=== PATIENT | female | born 1985 | race African-American/Black ===

== ENCOUNTER 2016-12-17 08:00 | Emergency (ER) | payer OTHER ==
[2016-12-17] MEDS ORDERED: METHYLPREDNISOLONE INJ 125 MG/2 ML SDV IV ONE (08:19)
[2016-12-17] MEDS ORDERED: CLINDAMYCIN 600 MG/D5W RTU 50 ML IV ONE (08:19)
--- NOTE | 2016-12-17 08:21 | ER Document Report ---
ED Oral Problem - General Chief Complaint: Sore Throat Stated Complaint: RIGHT SIDE JAW PAIN Time seen by provider: 08:18 Mode of Arrival: Ambulatory Information source: Patient Notes: 31-year-old female presents to ED for swollen face on the right side. She has a sore throat this morning. She also has a toothache bottom right wisdom tooth with swelling to the gum surrounding the tooth and the cheek beside the tooth. Some swelling inside, as well. Was seen last week for some dental problems and they told her she would not need to come back. TRAVEL OUTSIDE OF THE [place] IN LAST 30 DAYS: No - HPI Patient complains to provider of: Sore throat, Swelling of face, Swelling of jaw , Toothache Onset: This afternoon Onset: Gradual Quality of pain: Pressure, Sharp Severity: Severe Pain Level: 5 Associated symptoms: Facial pain, Jaw pain, Toothache. denies: Unable to swallow Relieved by: Nothing Similar symptoms previously: Yes Recently seen / treated by doctor/dentist: Yes - Related Data Allergies/Adverse Reactions: No Known Allergies Allergy (Verified 12/17/16 08:05) Past Medical History - General Information source: Patient - Social History Smoking Status: Never Smoker Cigarette use (# per day): No Chew tobacco use (# tins/day): No Smoking Education Provided: No Frequency of alcohol use: None Drug Abuse: None Lives with: Family Family History: Arthritis, CAD, CVA, DM, Hyperlipidemia, Hypertension, Thyroid Disfunction Patient has suicidal ideation: No Patient has homicidal ideation: No - Past Medical History Cardiac Medical History: Reports: None Pulmonary Medical History: Reports: Hx Asthma EENT Medical History: Reports: None Neurological Medical History: Reports: None Endocrine Medical History: Reports: None Renal/ Medical History: Reports: Other - Lupus Malignancy Medical History: Reports: None GI Medical History: Reports: Hx Gastroesophageal Reflux Disease Musculoskeltal Medical History: Reports Hx Arthritis Skin Medical History: Reports None Psychiatric Medical History: Reports: Hx Depression Traumatic Medical History: Reports: None Infectious Medical History: Reports: None Past Surgical History: Reports: Hx Adenoidectomy, Hx Tonsillectomy - tonsils and adnoids - Immunizations Immunizations up to date: No Hx Diphtheria, Pertussis, Tetanus Vaccination: No Review of Systems - Review of Systems Constitutional: No symptoms reported EENT: No symptoms reported, Throat pain, Mouth swelling, Dental problem, Other - Facial swelling Cardiovascular: No symptoms reported Respiratory: No symptoms reported Gastrointestinal: No symptoms reported Genitourinary: No symptoms reported Female Genitourinary: No symptoms reported Musculoskeletal: No symptoms reported Skin: No symptoms reported Hematologic/Lymphatic: No symptoms reported Neurological/Psychological: No symptoms reported -: Yes All other systems reviewed and negative Physical Exam - Vital signs Vitals: Temp Pulse Resp BP Pulse Ox 98.7 F 71 18 129/82 H 100 12/17/16 08:04 12/17/16 08:04 12/17/16 08:04 12/17/16 08:04 12/17/16 08:04 Interpretation: Normal - General General appearance: Appears well, Alert - HEENT Head: Normocephalic, Atraumatic Eyes: Normal Pupils: PERRL Teeth diagram: 1 - Gum and face swollen redness around the wisdom tooth swelling around the wisdom tooth - Respiratory Respiratory status: No respiratory distress Chest status: Nontender Breath sounds: Normal Chest palpation: Normal - Cardiovascular Rhythm: Regular Heart sounds: Normal auscultation Murmur: No - Abdominal Inspection: Normal Distension: No distension Bowel sounds: Normal Tenderness: Nontender Organomegaly: No organomegaly - Back Back: Normal, Nontender - Extremities General upper extremity: Normal inspection, Nontender, Normal color, Normal ROM , Normal temperature General lower extremity: Normal inspection, Nontender, Normal color, Normal ROM , Normal temperature, Normal weight bearing. No: Marko's sign - Neurological Neuro grossly intact: Yes Cognition: Normal Orientation: AAOx4 [place] Coma Scale Eye Opening: Spontaneous [place] Coma Scale Verbal: Oriented [place] Coma Scale Motor: Obeys Commands [place] Coma Scale Total: 15 Speech: Normal Motor strength normal: LUE, RUE, LLE, RLE Sensory: Normal - Psychological Associated symptoms: Normal affect, Normal mood - Skin Skin Temperature: Warm Skin Moisture: Dry Skin Color: Normal Course - Vital Signs Vital signs: Temp Pulse Resp BP Pulse Ox 97.8 F 70 18 118/64 98 12/17/16 10:46 12/17/16 10:46 12/17/16 10:46 12/17/16 10:46 12/17/16 10:46 Discharge - Discharge Clinical Impression: Dental infection, Facial swelling Condition: Stable Disposition: HOME, SELF-CARE Additional Instructions: TOOTHACHE: Your pain is due to dental decay. The tooth must be repaired in order for you to feel better. You will, therefore, be referred to a dentist. We do not have dentists on the staff at [facility]. Severe swelling or drainage around a tooth usually means a dental abscess. This also requires evaluation and treatment by the dentist, but antibiotics may be prescribed while awaiting dental treatment. You should be rechecked immediately if you develop major swelling of the face, increasing pain, a lump in the jaw or gums, headache, difficulty swallowing, or fever. ORAL NARCOTIC MEDICATION: You have been given a prescription for pain control. This medication is a narcotic. It's best taken with food, as nausea can result if taken on an empty stomach. Don't operate machinery or drive within six hours of taking this medication. Do not combine this medicine with alcohol, or with any medication which can cause sedation (such as cold tablets or sleeping pills) unless you get permission from the physician. Narcotics tend to cause constipation. If possible, drink plenty of fluids and eat a diet high in fiber and fruits. Please be aware that prescription narcotics also have the potential for abuse. People become addicted to these medications because of the general sense of wellbeing that they induce. This feeling along with a significant reduction in tension, anxiety, and aggression provides a stimulating seductive quality to these drugs. Once your pain is under control, we encourage you to discard your unused narcotics. CLINDAMYCIN: You have been given a prescription for the antibiotic clindamycin. It is often prescribed for infections in the mouth, such as dental infections or abscesses, and for skin infections due to MRSA. It's important that you take all the medication, unless instructed otherwise by your physician. Failure to complete the entire course can result in relapse of your condition. Common side effects of antibiotics include nausea, intestinal cramping, or diarrhea. Women may develop vaginal yeast infections, and babies can get yeast (thrush) in the mouth following the use of antibiotics. Contact your physician if you develop significant side effects from this medication. Allergy to this antibiotic can result in hives, wheezing, faintness, or itching. If symptoms of allergy occur, stop the medication and call the doctor. FOLLOW-UP CARE: You have been referred for follow-up care to the dentists listed below. Call the dentists office for an appointment as you were instructed or within the next two days. If you experience worsening or a significant change in your symptoms, notify the physician immediately or return to the Emergency Department at any time for re-evaluation. [facility] [address], [place] Sunday mornings, by appointment [facility] [address] [place] [address] [facility] [address] [facility] [address] [facility] [address] [email or web address] [address] [place] [address] Sunday- 8:00am to 5:00 pm Will see patients from other [facility]. Charges based on income and family size and accepts Medicare, Medicaid, and Insurances Will pull molars [facility] [id number] Hours of Operation 8:00 am - 4:30 pm weekdays The following dental offices accept Medicaid: [facility] Dr. Patel Dr. Ordaz Dr. Lara Dr. Shi Rosalio Cavazos [place], and [facility] Dr. Freed ([place]) Dr. Calhoun ([place]) [facility] Drs. Gracia and Yeison ([place]) Dr. Tinsley ([place]) [facility] Dr. Car ([place]) Drs. Horton and ([place]) Medicaid Care Line Prescriptions: Hydrocodone/Acetaminophen [[place] 5-325 mg Tablet] 1 tab PO Q6HP PRN #14 tablet PRN Reason: Clindamycin HCl 300 mg PO Q6 #28 capsule Forms: Elevated Blood Pressure
--- NOTE | 2016-12-17 09:20 | ER Document Report ---
Doctor's Note Notes: 12/17/16 09:19 Patient seen at bedside APC request. Patient with some mild facial swelling no trismus stridor or drooling no submandibular subungual or tongue elevation concerning for Ricardo angina. Reviewed the treatment which is appropriate appropriate follow-up antibiotics and discussed with the patient reasons for ED return sooner
[2016-12-17 10:51] VITALS: BP 118/64
== END 2016-12-17 10:51 | disposition home or self-care (01) ==
LOC: ER 08:00
DX: K04.7 Periapical abscess without sinus (principal); R22.0 Localized swelling, mass and lump, head; J02.9 Acute pharyngitis, unspecified; R68.84 Jaw pain
CPT/HCPCS: 99283; 96375; 96365; J2930

== ENCOUNTER 2017-01-05 08:45 | Emergency (ER) | payer SELFPAY ==
[2017-01-05] MEDS ORDERED: ALBUTEROL SULFATE 0.083% NEB 2.5 MG/3 ML AMPUL NEB ONE (09:20)
--- NOTE | 2017-01-05 09:29 | ER Document Report ---
HPI - HPI Patient complains to provider of: cough/cold, headache Onset: Last week Onset/Duration: Gradual Quality of pain: No pain Severity: None Pain Level: Denies Context: Patient states she has had cough and cold symptoms for 1 week. Has not taken any [id number]-[id number] medications for relief of symptoms, but has tried hot tea. Patient does have a history of asthma, but does not have an inhaler at home. Patient denies fever Associated Symptoms: Productive cough, Headache, Rhinnorhea. denies: Fever Exacerbated by: Coughing Relieved by: Denies Similar symptoms previously: Yes Recently seen / treated by doctor: No - ROS ROS below otherwise negative: Yes Systems Reviewed and Negative: Yes All other systems reviewed and negative - CONSTITUTIONAL Constitutional: DENIES: Fever - EENT EENT: REPORTS: Sore Throat, Nasal Drainage-Clear, Congestion - NEURO Neurology: REPORTS: Headache - CARDIOVASCULAR Cardiovascular: DENIES: Chest pain - RESPIRATORY Respiratory: REPORTS: Coughing. DENIES: Trouble Breathing - GASTROINTESTINAL Gastrointestinal: DENIES: Abdominal Pain - URINARY Urinary: DENIES: Dysuria - REPRODUCTIVE Reproductive: DENIES: : - MUSCULOSKELETAL Musculoskeletal: DENIES: Extremity pain - DERM Skin Color: Normal Skin Problems: None Past Medical History - General Information source: Patient - Social History Smoking Status: Never Smoker Frequency of alcohol use: None Drug Abuse: None Lives with: Family Family History: Arthritis, CAD, CVA, DM, Hyperlipidemia, Hypertension, Thyroid Disfunction Patient has suicidal ideation: No Patient has homicidal ideation: No Pulmonary Medical History: Reports: Hx Asthma Renal/ Medical History: Denies: Hx Peritoneal Dialysis GI Medical History: Reports: Hx Gastroesophageal Reflux Disease Musculoskeltal Medical History: Reports Hx Arthritis, Reports Other - Lupus Psychiatric Medical History: Reports: Hx Depression Past Surgical History: Reports: Hx Adenoidectomy, Hx Tonsillectomy - tonsils and adnoids - Immunizations Immunizations up to date: No Hx Diphtheria, Pertussis, Tetanus Vaccination: No Vertical Provider Document - CONSTITUTIONAL Agree With Documented VS: Yes Exam Limitations: No Limitations General Appearance: WD/WN, No Apparent Distress - INFECTION CONTROL TRAVEL OUTSIDE OF THE [place] IN LAST 30 DAYS: No - HEENT HEENT: Atraumatic, Normocephalic Notes: TMs dull, throat with mild erythema, no exudates, + PND - NECK Neck: Normal Inspection, Supple - RESPIRATORY Respiratory: Breath Sounds Normal O2 Sat by Pulse Oximetry: 98 Notes: Slightly decreased breath sounds, no wheezing, rhonchi or rales. Raspy cough noted. - CARDIOVASCULAR Cardiovascular: Regular Rate, Regular Rhythm - GI/ABDOMEN Gastrointestinal: Abdomen Soft - MUSCULOSKELETAL/EXTREMETIES Musculoskeletal/Extremeties: MAEW, FROM - NEURO Level of Consciousness: Awake, Alert, Appropriate - DERM Integumentary: Warm, Dry Course - Re-evaluation Re-evalutation: 01/05/17 09:39 Increased breath sounds after nebulizer treatment. - Vital Signs Vital signs: Temp Pulse Resp BP Pulse Ox 75 16 128/68 H 98 01/05/17 08:48 01/05/17 08:48 01/05/17 08:48 01/05/17 08:48 Discharge - Discharge Clinical Impression: Cough, History of asthma URI (upper respiratory infection) Qualifiers: URI type: unspecified URI Qualified Code(s): J06.9 - Acute upper respiratory infection, unspecified Condition: Good Disposition: HOME, SELF-CARE Instructions: Upper Respiratory Illness ([facility]) Additional Instructions: Vzur-maf-[id number] cough cold medication for symptom relief. Medications as prescribed Use inhaler 2 puffs every 4 hours as needed for cough Push fluids Follow-up with your doctor for recheck Sunday Return as needed Prescriptions: Prednisone [Deltasone 10 mg Tablet] 10 mg PO ASDIR #21 tablet
[2017-01-05] MEDS ORDERED: ALBUTEROL SULFATE HFA (90 MCG/PUFF) 8 GM MDI (1 MDI/ER DISP) IH ONE (09:30)
[2017-01-05 09:57] VITALS: BP 113/68
== END 2017-01-05 09:57 | disposition home or self-care (01) ==
LOC: ER 08:45
DX: J06.9 Acute upper respiratory infection, unspecified (principal); R05 Cough; J45.909 Unspecified asthma, uncomplicated; R51 Headache; J34.89 Other specified disorders of nose and nasal sinuses; J02.9 Acute pharyngitis, unspecified
CPT/HCPCS: 94640; 99283; J3490

== ENCOUNTER 2017-08-24 21:14 | Emergency (ER) | payer SELFPAY ==
[2017-08-24] MEDS ORDERED: TOBRAMYCIN SULFATE/DEXAMETH OPH SUSP 2.5 ML OU ONE (23:13)
[2017-08-24] MEDS ORDERED: TOBRAMYCIN SULFATE/DEXAMETH OPH SUSP 2.5 ML ONE (23:49)
--- NOTE | 2017-08-25 00:02 | ER Document Report ---
ED Eye Complaint - General Chief Complaint: Eye Problem Stated Complaint: EYE PAIN Time Seen by Provider: 08/24/17 23:08 Mode of Arrival: Ambulatory Information source: Patient Notes: Patient is a 31-year-old white female comes to emergency room complaining of upper eyelid puffiness. Patient stated his been off and on for about a month but worse last 2 days to the upper eyelids are swollen almost closed where she could not see. Patient says for the past couple of days it has gotten to where it is difficult to see because she cannot open her eyelids all the way. She denies plucking her eyebrows or any type of other sources of infection she does not use makeup very often. She does not know where this is coming from. She denies fevers or she denies any other contacts with sick people with similar symptoms. TRAVEL OUTSIDE OF THE [place] IN LAST 30 DAYS: No - HPI Patient complains to provider of: Swelling of eyelids Onset: Other - Off and on for a month greater the past 2 days Eye location: Bilateral Injury: No Occurred at: Other - Unknown Quality of pain: Achy, Fullness Severity: Moderate Pain Level: 3 Safety glasses worn: No Contact lenses worn: No Associated symptoms: None, Eyelid swelling, Orbital swelling - Related Data Allergies/Adverse Reactions: No Known Allergies Allergy (Verified 12/17/16 08:05) Past Medical History - General Information source: Patient - Social History Smoking Status: Never Smoker Cigarette use (# per day): No Chew tobacco use (# tins/day): No Smoking Education Provided: No Frequency of alcohol use: None Drug Abuse: None Lives with: Family Family History: Arthritis, CAD, CVA, DM, Hyperlipidemia, Hypertension, Thyroid Disfunction Patient has suicidal ideation: No Patient has homicidal ideation: No Pulmonary Medical History: Reports: Hx Asthma Renal/ Medical History: Denies: Hx Peritoneal Dialysis GI Medical History: Reports: Hx Gastroesophageal Reflux Disease Musculoskeltal Medical History: Reports Hx Arthritis Psychiatric Medical History: Reports: Hx Depression Past Surgical History: Reports: Hx Adenoidectomy, Hx Tonsillectomy - tonsils and adnoids - Immunizations Immunizations up to date: No Hx Diphtheria, Pertussis, Tetanus Vaccination: No Review of Systems - Review of Systems Constitutional: No symptoms reported EENT: See HPI Cardiovascular: No symptoms reported Respiratory: No symptoms reported Gastrointestinal: No symptoms reported Genitourinary: No symptoms reported Female Genitourinary: No symptoms reported Musculoskeletal: No symptoms reported Skin: No symptoms reported Hematologic/Lymphatic: No symptoms reported Neurological/Psychological: No symptoms reported -: Yes All other systems reviewed and negative Physical Exam - Vital signs Vitals: Temp Pulse Resp BP Pulse Ox 98.5 F 59 L 18 125/68 100 08/24/17 21:47 08/24/17 21:47 08/24/17 21:47 08/24/17 21:47 08/24/17 21:47 Interpretation: Normal - General General appearance: Alert, Other - Uncomfortable appearing - HEENT Head: Normocephalic, Atraumatic Eyes: Periorbital edema Conjunctiva: Normal Cornea: Normal Extraocular movements intact: Yes Eyelashes: Matted, Other - Eyebrows are puffy and upper eyelid is puffy. Inflammation around the lid line itself. This is bilaterally which is an unusual but occurs. The puffiness may also be related to a level allergic kind of a presentation as well. Tympanic membrane: Normal. No: Bulging, Hemotympanum, Injected, Loss of landmarks, Perforation, Purulent effusion, Retracted, Serous effusion, Other Sinus: Normal, Other - Congestion bilateral nares Nasal: Clear rhinorrhea Mouth/Lips: Normal. No: Angioedema, Caries, Dental fracture, Laceration, Lesions, Other Mucous membranes: Normal, Moist Pharynx: Normal. No: Blood in hypopharynx, Erythema, Exudate, Peritonsillar abscess, Post nasal drainage, Retropharyngeal abscess, Tonsillar hypertrophy, Uvular edema, Potential airway comprom., Other Neck: Normal. No: Anterior cervical chain, Posterior cervical chain, Brudzinski , Carotid bruit, Kernig's, Lymphadenopathy, Meningismus, Neck mass, Shotty nodes , Subcutaneous emphysema, Supple, Thyroid nodule, Thyromegally, Other - Respiratory Respiratory status: No respiratory distress Chest status: Nontender Breath sounds: Normal Chest palpation: Normal - Cardiovascular Rhythm: Bradycardia Heart sounds: Normal auscultation Murmur: No - Neurological Neuro grossly intact: Yes Cognition: Normal Orientation: AAOx4 [place] Coma Scale Eye Opening: Spontaneous [place] Coma Scale Verbal: Oriented [place] Coma Scale Motor: Obeys Commands [place] Coma Scale Total: 15 Speech: Normal - Skin Skin Moisture: Dry Skin Color: Normal, [place] Course - Vital Signs Vital signs: Temp Pulse Resp BP Pulse Ox 98.5 F 59 L 18 125/68 100 08/24/17 21:47 08/24/17 21:47 08/24/17 21:47 08/24/17 21:47 08/24/17 21:47 - Transfer of Care Notes: 08/25/17 00:05 At this time a believe patient is to possible problems going on one. Will be a blepharitis of the lid line. In the last area. The second would be the puffiness of the upper eyebrows and lids also appears somewhat as a allergic type reaction. We will place patient on eyedrops and an oral antibiotic along with an antihistamine. Given patient a referral over to the corporate affairs manager office if is not better in 2 or 3 days. She will return here she has any concerns or problems. Discharge - Discharge Clinical Impression: Allergic reaction Qualifiers: Encounter type: initial encounter Qualified Code(s): T78.40XA - Allergy, unspecified, initial encounter Blepharitis of both eyes Qualifiers: Blepharitis type: unspecified type Eyelid: both upper and lower Qualified Code( s): H01.001 - Unspecified blepharitis right upper eyelid; H01.002 - Unspecified blepharitis right lower eyelid; H01.002 - Unspecified blepharitis right lower eyelid; H01.004 - Unspecified blepharitis left upper eyelid; H01.004 - Unspecified blepharitis left upper eyelid; H01.005 - Unspecified blepharitis left lower eyelid; H01.005 - Unspecified blepharitis left lower eyelid Condition: Good Disposition: HOME, SELF-CARE Instructions: Antibiotic Therapy ([facility]), Acute Allergic Reaction ([facility]) Additional Instructions: As we discussed use the eyedrops 1 drop each eye every 4-6 hours while awake for 7 days only. Also wanted to take some Zyrtec 10 mg [id number] daily. I do believe that part of the puffiness of the eyes may be an allergic reaction to something that are coming in contact with. Given the name of the corporate affairs manager we refer to hear from the hospital if you are having any problems I suggested she contact him on Sunday. In the meantime should any problems arise return to ER before then. Prescriptions: Cetirizine HCl [Zyrtec 10 mg Tablet] 1 tab PO DAILY #30 tablet
[2017-08-25 00:40] VITALS: BP 111/56
== END 2017-08-25 00:38 | disposition home or self-care (01) ==
LOC: ER 21:14
DX: T78.40XA Allergy, unspecified, initial encounter (principal); H01.001 Unspecified blepharitis right upper eyelid; H01.002 Unspecified blepharitis right lower eyelid; H01.004 Unspecified blepharitis left upper eyelid; H01.005 Unspecified blepharitis left lower eyelid; H57.13 Ocular pain, bilateral; R22.0 Localized swelling, mass and lump, head
CPT/HCPCS: 99283; J3490

== ENCOUNTER 2017-09-09 10:08 | Emergency (ER) | payer SELFPAY ==
[2017-09-09 10:12] VITALS: BP 113/72
--- NOTE | 2017-09-09 11:27 | ER Document Report ---
ED Eye Complaint - General Chief Complaint: Eye Problem Stated Complaint: EYE PAIN Time Seen by Provider: 09/09/17 11:15 Mode of Arrival: Ambulatory Information source: Patient Notes: 32-year-old female presents to ED for complaint of pain and swelling to her right upper eyelid. There is no swelling to the lower lid no redness no inflammation no drainage. Patient states this has happened multiple times over the last month. She was supposed to go see a hse manager but she was scheduled during 1 of the . She is post call them again tomorrow to schedule a follow-up appointment. She states she went to nursery school teacher as she has lupus and he told her he was not sure what was going on. She is also been to her primary doctor and was scheduled appointment with Zechariah. TRAVEL OUTSIDE OF THE [place] IN LAST 30 DAYS: No - HPI Onset: Other - Off and on for the last 1-2 months has been seen by multiple providers Eye location: Right Injury: No Quality of pain: Burning Severity: Moderate Pain Level: 3 Associated symptoms: Burning - Related Data Allergies/Adverse Reactions: No Known Allergies Allergy (Verified 09/09/17 10:11) Past Medical History - General Information source: Patient - Social History Smoking Status: Never Smoker Cigarette use (# per day): No Chew tobacco use (# tins/day): No Smoking Education Provided: No Frequency of alcohol use: None Drug Abuse: None Occupation: none Lives with: Family Family History: Arthritis, CAD, CVA, DM, Hyperlipidemia, Hypertension, Thyroid Disfunction. denies: COPD, Malignancy Patient has suicidal ideation: No Patient has homicidal ideation: No - Past Medical History Cardiac Medical History: Reports: None Pulmonary Medical History: Reports: Hx Asthma EENT Medical History: Reports: None Neurological Medical History: Reports: None Endocrine Medical History: Reports: None Renal/ Medical History: Reports: None Malignancy Medical History: Reports: None GI Medical History: Reports: Hx Gastroesophageal Reflux Disease Musculoskeltal Medical History: Reports Hx Arthritis, Reports Other - lupus Skin Medical History: Reports None Psychiatric Medical History: Reports: Hx Depression Traumatic Medical History: Reports: None Past Surgical History: Reports: Hx Adenoidectomy, Hx Tonsillectomy - tonsils and adenoids - Immunizations Immunizations up to date: No Hx Diphtheria, Pertussis, Tetanus Vaccination: No Review of Systems - Review of Systems Constitutional: No symptoms reported EENT: Eye pain - swelling to upper eye lid Cardiovascular: No symptoms reported Respiratory: No symptoms reported Gastrointestinal: No symptoms reported Genitourinary: No symptoms reported Female Genitourinary: No symptoms reported Musculoskeletal: No symptoms reported Skin: No symptoms reported Hematologic/Lymphatic: No symptoms reported Neurological/Psychological: No symptoms reported -: Yes All other systems reviewed and negative Physical Exam - Vital signs Vitals: Temp Pulse Resp BP Pulse Ox 98.3 F 61 18 113/72 100 09/09/17 10:11 09/09/17 10:11 09/09/17 10:11 09/09/17 10:11 09/09/17 10:11 Interpretation: Normal - General General appearance: Appears well, Alert - HEENT Head: Normocephalic, Atraumatic Eyes: Other - Swelling to the right upper eyelid no swelling to the lower lid or the left eye no redness no drainage no history of any injury Conjunctiva: Normal Cornea: Normal Extraocular movements intact: Yes Eyelashes: Normal Pupils: PERRL Visual avendano normal: Yes Ears: Normal External canal: Normal Tympanic membrane: Normal Nasal: Purulent discharge, Swelling Mouth/Lips: Normal Mucous membranes: Normal Pharynx: Post nasal drainage Neck: Normal - Respiratory Respiratory status: No respiratory distress Chest status: Nontender Breath sounds: Normal Chest palpation: Normal - Cardiovascular Rhythm: Regular Heart sounds: Normal auscultation Murmur: No - Abdominal Inspection: Normal Distension: No distension Bowel sounds: Normal Tenderness: Nontender Organomegaly: No organomegaly - Back Back: Normal, Nontender - Extremities General upper extremity: Normal inspection, Nontender, Normal color, Normal ROM , Normal temperature General lower extremity: Normal inspection, Nontender, Normal color, Normal ROM , Normal temperature, Normal weight bearing. No: Marko's sign - Neurological Neuro grossly intact: Yes Cognition: Normal Orientation: AAOx4 Jorge A Coma Scale Eye Opening: Spontaneous Monona Coma Scale Verbal: Oriented Jorge A Coma Scale Motor: Obeys Commands Monona Coma Scale Total: 15 Speech: Normal Motor strength normal: LUE, RUE, LLE, RLE Sensory: Normal - Psychological Associated symptoms: Normal affect, Normal mood - Skin Skin Temperature: Warm Skin Moisture: Dry Skin Color: Normal Course - Re-evaluation Re-evalutation: 09/09/17 12:[address] Dailey. Patient to continue taking her antihistamines. Patient to use Benadryl if the antihistamine is not helping. Patient to use cold packs to the eye. Patient to follow-up with ophthalmology. - Vital Signs Vital signs: Temp Pulse Resp BP Pulse Ox 98.3 F 61 18 113/72 100 09/09/17 10:11 09/09/17 10:11 09/09/17 10:11 09/09/17 10:11 09/09/17 10:11 Discharge - Discharge Clinical Impression: Swelling of right upper eyelid URI (upper respiratory infection) Qualifiers: URI type: unspecified URI Qualified Code(s): J06.9 - Acute upper respiratory infection, unspecified Condition: Stable Disposition: HOME, SELF-CARE Additional Instructions: You have presented today with swelling to the right upper eyelid. There is no signs of any infection there is no redness or drainage. You do have a upper respiratory infection which is a viral infection. UPPER RESPIRATORY ILLNESS: You have a viral infection of the respiratory passages -- a "cold." This common infection causes nasal congestion, drainage, and often sore throat and cough. It is highly contagious. The disease usually lasts about 10 to 14 days. There is no "cure" for the viral infection -- it must run its course. If there is a complication, such as bacterial infection in the nose, sinuses, middle ear, or bronchial tubes, antibiotics may be required. The antibiotics won't affect the virus. Drink plenty of fluids. A humidifier may help. An expectorant medication or decongestant may make you more comfortable. Use acetaminophen or ibuprofen for fever or aches. See the doctor if fever persists over two days, if there is any significant worsening of your symptoms, or if you simply fail to improve as expected. Continue taking your antihistamines as prescribed. Get some [id number] oral-based eyedrops for relief of discomfort and dry feeling. Be sure not to touch the eye with the eyedrop container when dispensing your eyedrops. Please call the hse manager in the morning and if they are closed while call him Sunday and get in to see the hse manager. DECONGESTANT MEDICATION: A decongestant medicine has been suggested. Often this medicine is combined in the same tablet with an antihistamine or expectorant. This type of medicine is helpful in treating a bad cold or sinus condition, as well as in treatment of the nasal congestion of hay fever. It is not of much benefit for lung infections. Decongestant medicines are related to stimulants. They can cause an increase in blood pressure and heart rate. Persons with heart disease and high blood pressure should not take decongestants without discussing this with the physician. If you develop palpitations, chest pain, headache, or tremors, stop the medicine and consult your physician. COUGH-SUPPRESSANT & EXPECTORANT MEDICATION: You are to use a cough medication as needed for relief of symptoms. This medicine is a combination of an expectorant (to make the mucous thinner and more easily "coughed up") and a cough suppressant (to reduce the frequency of coughing). The cough-suppressant medicine is related to narcotics. You may experience mild nausea and sleepiness. Some patients who are very sensitive to narcotics may have stomach pain from this medicine. Taking the medicine with food reduces these side effects. Do not drive or work with machinery until you know how this medicine affects you. The expectorant should have no side effects. Iodine-containing expectorants (such as organidin) should not be taken by persons with active thyroid disease unless approved by your doctor. Call the doctor if you develop shortness of breath, hives, rash, itching, lightheadedness, or severe nausea and vomiting. USE OF ACETAMINOPHEN (Tylenol): Acetaminophen may be taken for pain relief or fever control. It's much safer than aspirin, offering a wider range of "safe" dosages. It is safe during . Some brand names are Tylenol, Panadol, Datril, Anacin 3, Tempra, and Liquiprin. Acetaminophen can be repeated every four hours. The following are maximum recommended dosages: >89 pounds or adults 650 mg to 900 mg Acetaminophen can be repeated every four hours. Maximum dose not to exceed 4000 mg a day. Ibuprofen Ibuprofen is an excellent, safe drug for pain control. In addition, it has potent antiinflammatory effects which are beneficial, especially in the treatment of injuries, arthritis, or tendonitis. It's best to take ibuprofen with food. Persons with ulcer disease or allergy to aspirin should notify their physician of this before taking ibuprofen. Take the medication exactly as prescribed. Don't take additional doses unless instructed to do so by your doctor. If you develop wheezing, shortness of breath, hives, faintness, stomach pain, vomiting, or dark black stools, return for re-evaluation at once. FOLLOW-UP CARE: If you have been referred to a physician for follow-up care, call the physician s office for an appointment as you were instructed or within the next two days. If you experience worsening or a significant change in your symptoms, notify the physician immediately or return to the Emergency Department at any time for re-evaluation. Referrals: MJ MARTÍNEZ DO [ACTIVE STAFF] - Follow up as needed BAILEE ALVAREZ MD [ACTIVE STAFF] - Follow up as needed
[2017-09-09] MEDS ORDERED: IBUPROFEN 800 MG TABLET PO ONE (11:40)
== END 2017-09-09 11:53 | disposition home or self-care (01) ==
LOC: ER 10:08
DX: J06.9 Acute upper respiratory infection, unspecified (principal); R22.9 Localized swelling, mass and lump, unspecified; H57.11 Ocular pain, right eye
CPT/HCPCS: 99283

== ENCOUNTER 2018-01-03 01:00 | Emergency (ER) | payer MEDICAID ==
--- NOTE | 2018-01-03 02:27 | ER Document Report ---
ED GI/ - General Chief Complaint: Vag Bleeding, +preg <12wks Stated Complaint: VAGINAL BLEEDING Time Seen by Provider: 01/03/18 01:26 Mode of Arrival: Ambulatory Information source: Patient Notes: Patient is a 32-year-old female who presents with mild vaginal bleeding. Patient reports that she has 5 weeks and that this was confirmed by the [facility]. Patient reports that the first time she noticed any blood was on Sunday but states that it was only when she wiped. Patient reports that the bleeding has not gotten worse and is still very mild however patient felt that the bleeding should have gone away by now. Patient denies any pain or cramping, denies any clots denies any nausea vomiting fever or any other concerns. TRAVEL OUTSIDE OF THE [place] IN LAST 30 DAYS: No - Related Data Allergies/Adverse Reactions: No Known Allergies Allergy (Verified 09/09/17 10:11) Past Medical History - General Information source: Patient - Social History Smoking Status: Never Smoker Cigarette use (# per day): No Chew tobacco use (# tins/day): No Smoking Education Provided: No Frequency of alcohol use: None Drug Abuse: None Family History: Arthritis, CAD, CVA, DM, Hyperlipidemia, Hypertension, Thyroid Disfunction. denies: COPD, Malignancy Patient has suicidal ideation: No Patient has homicidal ideation: No Pulmonary Medical History: Reports: Hx Asthma Renal/ Medical History: Denies: Hx Peritoneal Dialysis GI Medical History: Reports: Hx Gastroesophageal Reflux Disease Musculoskeltal Medical History: Reports Hx Arthritis Psychiatric Medical History: Reports: Hx Depression Past Surgical History: Reports: Hx Adenoidectomy, Hx Tonsillectomy - tonsils and adenoids - Immunizations Immunizations up to date: No Hx Diphtheria, Pertussis, Tetanus Vaccination: No Review of Systems - Review of Systems Constitutional: No symptoms reported EENT: No symptoms reported Cardiovascular: No symptoms reported Respiratory: No symptoms reported Gastrointestinal: No symptoms reported Genitourinary: No symptoms reported Female Genitourinary: Vaginal bleeding Musculoskeletal: No symptoms reported Skin: No symptoms reported Hematologic/Lymphatic: No symptoms reported Neurological/Psychological: No symptoms reported Physical Exam - Vital signs Vitals: Temp Pulse Resp BP Pulse Ox 98.4 F 67 18 135/79 H 100 01/03/18 01:05 01/03/18 01:05 01/03/18 01:05 01/03/18 01:05 01/03/18 01:05 - Notes Notes: PHYSICAL EXAMINATION: GENERAL: Well-appearing, well-nourished and in no acute distress. HEAD: Atraumatic, normocephalic. EYES: Pupils equal round and reactive to light, extraocular movements intact, conjunctiva are normal. ENT: Nares patent, oropharynx clear without exudates. Moist mucous membranes. NECK: Normal range of motion, supple without lymphadenopathy LUNGS: Breath sounds clear to auscultation bilaterally and equal. No wheezes rales or rhonchi. HEART: Regular rate and rhythm without murmurs ABDOMEN: Soft, nontender, nondistended abdomen. No guarding, no rebound. No masses appreciated. Female : deferred Musculoskeletal: Normal range of motion, no pitting or edema. No cyanosis. NEUROLOGICAL: Cranial nerves grossly intact. Normal speech, normal gait. Normal sensory, motor exams PSYCH: Normal mood, normal affect. SKIN: Warm, Dry, normal turgor, no rashes or lesions noted. Course - Re-evaluation Re-evalutation: Patient is a who presents approximately 5 weeks with mild vaginal bleeding. Patient denies any pain, passage of any clots. Patient reports that not soaking through pads and only has to change them once every 6- 8 hours. Patient was seen here on 10/09/2012 and had a RhoGam workup which indicated that the patient is a positive and no RhoGam was indicated. Will draw CBC, quantitative hCG and do a transvaginal OB ultrasound with Doppler. Patients exam is completely benign. CBC is unremarkable. HCG quantitative is 23.36. Patient will need to have repeat quantitative level drawn in approximately 48 hours. Patient remains completely symptomatic with no vaginal bleeding at this time no pain, no fever or other concerning symptoms. Patient will be discharged home with outpatient lab slip. - Vital Signs Vital signs: Temp Pulse Resp BP Pulse Ox 98.4 F 67 18 135/79 H 100 01/03/18 01:05 01/03/18 01:05 01/03/18 01:05 01/03/18 01:05 01/03/18 01:05 - Laboratory Result Diagrams: 01/03/18 02:00 Laboratory results interpreted by me: 01/03/18 01/03/18 02:00 02:00 WBC 2.2 L Hgb 9.4 L Hct 29.4 L MCV 73 L MCH 23.3 L RDW 16.4 H Monocytes % 14.5 H Absolute Neutrophils 1.1 L Beta HCG, Quant 23.36 H Discharge - Discharge Clinical Impression: Vaginal bleeding during Condition: Stable Disposition: HOME, SELF-CARE Additional Instructions: Threatened Miscarriage You have been evaluated for a possible miscarriage. At this time, there is no indication that a miscarriage will occur. Most women with your symptoms will go on to have a perfectly normal baby. However, careful observation will be necessary. A miscarriage occurs when the fetus is abnormal. There is no medicine or treatment for it. You should rest in bed until the symptoms have resolved. Do not douche or have sex for at least a week, or until OK'd by the doctor. Call the doctor or return for re-examination if there is an increase in bleeding or cramping, or passage of tissue. Your blood work and ultrasound today were normal. Please follow-up with the health department or an BLOCK S[facility]TER of your choosing for close follow-up. Referrals: [facility] [Outside] - Follow up as needed
[2018-01-03 02:40] LABS: ABSOLUTE LYMPHOCYTES (AUTO) 0.8 10^3/uL (0.5-4.7); ABSOLUTE MONOCYTES (AUTO) 0.3 10^3/uL (0.1-1.4); ABSOLUTE NEUT (AUTO) 1.1 10^3/uL (1.7-8.2); BASOPHILS % (AUTO) 0.6 % (0-2); EOSINOPHILS % (AUTO) 0.9 % (0-6); HEMATOCRIT 29.4 % (36.0-47.0); HEMOGLOBIN 9.4 g/dL (12.0-15.5); LYMPHOCYTES % (AUTO) 35.5 % (13-45); MEAN CORPUSCULAR HEMOGLOBIN 23.3 pg (27.0-33.4); MEAN CORPUSCULAR VOLUME 73 fl (80-97); MONOCYTES % (AUTO) 14.5 % (3-13); PLATELET COUNT 218 10^3/uL (150-450); RED BLOOD COUNT 4.04 10^6/uL (3.72-5.28); RED CELL DISTRIBUTION WIDTH 16.4 % (11.5-14.0); SEGMENTED NEUTROPHILS % (AUTO) 48.5 % (42-78); TOTAL CELLS COUNTED % (AUTO) 100 %; WHITE BLOOD COUNT 2.2 10^3/uL (4.0-10.5)
[2018-01-03 03:49] VITALS: BP 135/79
--- NOTE | 2018-01-03 06:01 | RADIOLOGY REPORT (SQ) ---
EXAM DESCRIPTION: US Transvaginal CLINICAL HISTORY: 32 years, Female, vaginal bleeding with COMPARISON: None. TECHNIQUE: Transvaginal LIMITATIONS: None. FINDINGS: No intrauterine gestation identified. Endometrial stripe thickness is 1.9 cm. Small fluid in the endometrial cavity and cervix. 12 x 8 x 6 cm uterus. 3.6 cm cervical length. Ovarian fossae are unremarkable; ovaries are not directly visualized. No significant free pelvic fluid. IMPRESSION: No intrauterine identified. Differential diagnosis includes occult early viable gestation, gestational loss, and occult ectopic gestation. Recommend 48-72 hour laboratory/sonographic follow-up.
== END 2018-01-03 05:05 | disposition home or self-care (01) ==
LOC: ER 01:00
DX: O20.9 Hemorrhage in early pregnancy, unspecified (principal); Z3A.01 Less than 8 weeks gestation of pregnancy
CPT/HCPCS: 36415; 76817; 84702; 85025; 99284

== ENCOUNTER 2018-02-20 19:07 | Emergency (ER) | payer MEDICAID ==
[2018-02-20 19:12] VITALS: BP 149/90
[2018-02-20] MEDS ORDERED: PREDNISONE 20 MG TABLET PO ONE (19:18)
--- NOTE | 2018-02-20 19:23 | ER Document Report ---
ED General - General Chief Complaint: Hand Swelling Stated Complaint: HANDS SWELLING Time Seen by Provider: 02/20/18 19:14 Notes: 32-year-old female PMH lupus here with complaints of right hand swelling ongoing for the past 1 day. She went to [facility] to be seen and was prescribed 7.5 mg daily prednisone for 7 days. This has not helped and her swelling persists. She states that this is 1 of her typical lupus flares. She denies any other symptoms. TRAVEL OUTSIDE OF THE [place] IN LAST 30 DAYS: No - Related Data Allergies/Adverse Reactions: No Known Allergies Allergy (Verified 02/20/18 19:09) Past Medical History - Social History Smoking Status: Never Smoker Chew tobacco use (# tins/day): No Frequency of alcohol use: None Drug Abuse: None Family History: Arthritis, CAD, CVA, DM, Hyperlipidemia, Hypertension, Thyroid Disfunction. denies: COPD, Malignancy Patient has suicidal ideation: No Patient has homicidal ideation: No Pulmonary Medical History: Reports: Hx Asthma Renal/ Medical History: Denies: Hx Peritoneal Dialysis GI Medical History: Reports: Hx Gastroesophageal Reflux Disease Musculoskeltal Medical History: Reports Hx Arthritis Psychiatric Medical History: Reports: Hx Depression Past Surgical History: Reports: Hx Adenoidectomy, Hx Tonsillectomy - tonsils and adenoids - Immunizations Immunizations up to date: No Hx Diphtheria, Pertussis, Tetanus Vaccination: No Review of Systems - Review of Systems Notes: See history of present illness for pertinent positive review of systems; otherwise all review of systems have been reviewed and are negative Physical Exam - Vital signs Vitals: Temp Pulse Resp BP Pulse Ox 98.7 F 58 L 16 149/90 H 100 02/20/18 19:11 02/20/18 19:11 02/20/18 19:11 02/20/18 19:11 02/20/18 19:11 - Notes Notes: PHYSICAL EXAMINATION: GENERAL: Well-appearing and in no acute distress. HEAD: Atraumatic, normocephalic. EYES: Pupils equal round and reactive to light, extraocular movements intact, sclera anicteric, conjunctiva are normal. ENT: nares patent, oropharynx clear without exudates. Moist mucous membranes. NECK: Normal range of motion, supple without lymphadenopathy LUNGS: CTAB and equal. No wheezes rales or rhonchi. HEART: Regular rate and rhythm without murmurs EXTREMITIES: Normal range of motion, there is minimal swelling of the right hand diffusely NEUROLOGICAL: Cranial nerves grossly intact. Normal sensory/motor exams. PSYCH: Normal mood, normal affect. SKIN: Warm, Dry, normal turgor, no rashes or lesions noted Course - Re-evaluation Re-evalutation: 02/20/18 19:22 MEDICAL DECISION MAKING: I reviewed the discharge paperwork given to the patient by [facility] She was prescribed 7.5 mg daily for 7 days of prednisone however this dosing is inadequate for the patient I will prescribe her prednisone 4 days worth and give her her first dose here for total of 5 days Instructed follow-up her table lever operator next day or few Patient understands and agrees to the plan of care - Vital Signs Vital signs: Temp Pulse Resp BP Pulse Ox 98.7 F 58 L 16 149/90 H 100 02/20/18 19:11 02/20/18 19:11 02/20/18 19:11 02/20/18 19:11 02/20/18 19:11 Discharge - Discharge Clinical Impression: Swelling of right hand Condition: Good Disposition: HOME, SELF-CARE Additional Instructions: You were seen in the emergency department at [facility]. Finish the prescribed steroids. Please followup with your table lever operator in the next few days for further management/evaluation. Please return to the emergency department for worsening of symptoms or any symptom that you deem to be concerning or life-threatening. Thank you for allowing us to be part of your care. Prescriptions: Prednisone [Deltasone 20 mg Tablet] 3 tab PO DAILY 4 Days tablet
== END 2018-02-20 19:23 | disposition home or self-care (01) ==
LOC: ER 19:07
DX: M79.89 Other specified soft tissue disorders (principal); Z79.899 Other long term (current) drug therapy; J45.909 Unspecified asthma, uncomplicated
CPT/HCPCS: 99283; J7512

== ENCOUNTER 2018-02-27 21:08 | Emergency (ER) | payer SELFPAY ==
[2018-02-27] MEDS ORDERED: DIPHENHYDRAMINE HCL 50 MG/ML VIAL IV ONE (21:27)
[2018-02-27] MEDS ORDERED: KETOROLAC TROMETHAMINE INJ/PF 30 MG/1 ML SDV IV ONE (21:27)
[2018-02-27] MEDS ORDERED: PROCHLORPERAZINE EDISYLATE INJ 10 MG/2 ML VIAL IV ONE (21:27)
--- NOTE | 2018-02-27 21:30 | ER Document Report ---
HPI - HPI Pain Level: 5 Notes: Patient is a 32-year-old female with a history of lupus who presents to the ED complaining of bilateral neck pain, headache, intermittent stomach ache 2 days. Patient states that her headache wraps around her head and starts in her neck. Patient states that when her headache starts she will get a "knot" in her stomach and she will feel nauseous but has not been vomiting. Patient states that she currently has not had any abdominal pain this evening. Patient states that she also notes increased urinations over the last couple days without any burning or hematuria. She has not noticed any vaginal discharge, bleeding, or odor. Patient states that she is having normal bowel movements. Patient has not noticed anything that worsens her headaches, but has noticed increased symptoms in the evenings. Denies any drug allergies. She has not had any light or noise sensitivities or changes in her vision. Denies any other recent illness. Denies any fever, head injury, changes in vision/speech/ mentation/hearing, URI, sore throat, chest pain, palpitations, syncope, cough, shortness of breath, wheeze, dyspnea, abdominal pain, nausea/vomiting/diarrhea, urinary retention, dysuria, hematuria, back pain, loss of control of bowel or bladder, numbness/tingling, saddle anesthesia, muscle paralysis/weakness, or rash. - ROS Systems Reviewed and Negative: Yes All other systems reviewed and negative - REPRODUCTIVE LMP: 02-02-18 Reproductive: DENIES: : Past Medical History - Social History Smoking Status: Unknown if Ever Smoked Family History: Arthritis, CAD, CVA, DM, Hyperlipidemia, Hypertension, Thyroid Disfunction. denies: COPD, Malignancy Pulmonary Medical History: Reports: Hx Asthma Renal/ Medical History: Denies: Hx Peritoneal Dialysis GI Medical History: Reports: Hx Gastroesophageal Reflux Disease Musculoskeltal Medical History: Reports Hx Arthritis Psychiatric Medical History: Reports: Hx Depression Past Surgical History: Reports: Hx Adenoidectomy, Hx Tonsillectomy - tonsils and adenoids - Immunizations Immunizations up to date: No Hx Diphtheria, Pertussis, Tetanus Vaccination: No Vertical Provider Document - CONSTITUTIONAL Agree With Documented VS: Yes Notes: PHYSICAL EXAMINATION: GENERAL: Well-appearing, well-nourished and in no acute distress. A&Ox4. Answers questions appropriately. HEAD: Atraumatic, normocephalic. Non-tender. EYES: Pupils equal round and reactive to light, extraocular movements intact, sclera anicteric, conjunctiva are normal. No nystagmus. Vis avendano intact. ENT: EAC clear b/l. TM's intact b/l without erythema, fluid, or perforation. Nares patent and without discharge. oropharynx clear without exudates. No tonsilar hypertrophy or erythema. Moist mucous membranes. No sinus tenderness. NECK: Normal range of motion, supple without lymphadenopathy. No rigidity. Kernig/brudzinski negative. No midline tenderness. Spurling negative. + mild tenderness to the c-paraspinal mm into the traps b/l which correlates with pain described. LUNGS: Breath sounds clear to auscultation bilaterally and equal. No wheezes rales or rhonchi. HEART: Regular rate and rhythm without murmurs, rubs, gallops. ABDOMEN: Soft, nontender, nondistended abdomen. No guarding, no rebound. No masses appreciated. Normal bowel sounds present. No CVA tenderness bilaterally. : deferred Musculoskeletal: Ext b/l: FROM to passive/active. Strength 5+/5. No deficits noted. Back: FROM to passive/active. Strength 5+/5. No vertebral point tenderness, stepoffs, or deformities. No other bony tenderness or ecchymosis. Extremities: No cyanosis, clubbing, or edema b/l. Peripheral pulses 2+. Capillary refill less than 2 seconds. NEUROLOGICAL: NIH 0. GCS 15. Cranial nerves grossly intact. Normal speech, normal gait. Normal sensory, motor exams. Reflexes 2+ b/l. MABEL's negative. Pronator drift negative. PSYCH: Normal mood, normal affect. SKIN: Warm, Dry, normal turgor, no rashes or lesions noted. - INFECTION CONTROL TRAVEL OUTSIDE OF THE [place] IN LAST 30 DAYS: No Course - Re-evaluation Re-evalutation: 02/27/18 23:25 Patient is an afebrile, well-hydrated, 32-year-old female who presents to the ED with a headache, suspect tension headache. Vitals are acceptable without any significant tachycardia, tachypnea, or hypoxia. PE is otherwise unremarkable for any focal neurological deficits. Patient is nontoxic- appearing. Patient is tolerating p.o. without difficulties. Urinalysis, urine hCG, CT scan of the head were unremarkable for any acute pathology. NIH 0, GCS 15, cranial nerves grossly intact. No other labs or imaging warranted at this time based on H&P. Patient was given Benadryl, Compazine, and Toradol IV which resolved the headache. Patient's abdomen is soft and nontender and she has not had any recurrence of abdominal cramping/pain since earlier today. Low suspicion for any acute glaucoma, temporal arteritis, meningitis, intracranial hemorrhage, ischemic stroke, or fracture at this time. Patient is aware that this condition can change from initial presentation and that she needs to monitor symptoms closely for any acute changes. I will send her home with some Zofran. Conservative measures otherwise for symptoms. Recheck with your PCM in 2-3 days. Return to the ED with any worsening/concerning symptoms otherwise as reviewed in discharge. Patient is in agreement. - Vital Signs Vital signs: Temp Pulse Resp BP Pulse Ox 98.5 F 73 20 171/92 H 100 02/27/18 21:15 02/27/18 21:15 02/27/18 21:15 02/27/18 21:15 02/27/18 21:15 Discharge - Discharge Clinical Impression: Headache Qualifiers: Headache type: tension-type Headache chronicity pattern: acute headache Intractability: not intractable Qualified Code(s): G44.209 - Tension-type headache, unspecified, not intractable Condition: Stable Disposition: HOME, SELF-CARE Instructions: Headache ([facility]) Additional Instructions: Rest, cool compresses Tylenol/ibuprofen as needed Light stretches daily Strength exercises as able Moist heat and massage may help F/u with your PCP in 2-3 days for a recheck Consider consult(s) with Orthopedics/physical therapy for ongoing/worsening symptoms Return to the ED with any worsening symptoms and/or development of fever, headache, changes in behavior/mentation/vision/speech, chest pain, palpitations , syncope, shortness of breath, trouble breathing, abdominal pain, n/v/d, blood in stool/urine, loss of control of bowel/bladder, urinary retention, muscle weakness/paralysis, saddle anesthesia, numbness/tingling, or other worsening symptoms that are concerning to you. Prescriptions: Baclofen [Baclofen 10 mg Tablet] 5 - 10 mg PO BID PRN #10 tablet PRN Reason: Forms: Elevated Blood Pressure Referrals: JASON DALAL MD [NO LOCAL MD] - 03/01/18
[2018-02-27 21:52] LABS: APPEARANCE,URINE SLIGHTLY-CLOUDY; BILIRUBIN,URINE NEGATIVE (NEGATIVE); COLOR,URINE STRAW; GLUCOSE, URINE NEGATIVE (NEGATIVE); KETONES,URINE NEGATIVE (NEGATIVE); LEUKOCYTE ESTERASE,URINE TRACE (NEGATIVE); NITRITE,URINE NEGATIVE (NEGATIVE); PROTEIN,URINE 30 mg/dL (NEGATIVE); UROBILINOGEN,URINE NEGATIVE mg/dL (<2.0)
--- NOTE | 2018-02-27 22:04 | RADIOLOGY REPORT (SQ) ---
EXAM DESCRIPTION: CT HEAD WITHOUT COMPLETED DATE/TIME: 02/27/2018 9:45 pm REASON FOR STUDY: Headache COMPARISON: None. TECHNIQUE: Axial images acquired through the brain without intravenous contrast. Images reviewed wi th bone, brain and subdural windows. Additional sagittal and coronal reconstructions were generated. Images stored on PACS. All CT scanners at this facility use dose modulation, iterative reconstruction, and/or weight based d osing when appropriate to reduce radiation dose to as low as reasonably achievable (ALARA). [facility]: Dose Right [facility]: CareDose [facility]: Dose Right [facility]: Teradose 4D [facility]: ClariFI RADIATION DOSE: CT Rad equipment meets quality standard of care and radiation dose reduction techniq ues were employed. CTDIvol: 53.2 mGy. DLP: 964 mGy-cm. mGy. LIMITATIONS: None. FINDINGS: VENTRICLES: Normal size and contour. CEREBRUM: No masses. No hemorrhage. No midline shift. No evidence for acute infarction. Normal gra y/white matter differentiation. No areas of low density in the white matter. CEREBELLUM: No masses. No hemorrhage. No alteration of density. No evidence for acute infarction. EXTRAAXIAL SPACES: No fluid collections. No masses. ORBITS AND GLOBE: No intra- or extraconal masses. Normal contour of globe without masses. CALVARIUM: No fracture. PARANASAL SINUSES: No fluid or mucosal thickening. SOFT TISSUES: No mass or hematoma. OTHER: No other significant finding. IMPRESSION: NORMAL BRAIN CT WITHOUT CONTRAST. EVIDENCE OF ACUTE STROKE: NO. COMMENT: Quality ID # [id number]: Final reports with documentation of one or more dose reduction techniques (e.g., Automated exposure control, adjustment of the mA and/or kV according to patient size, use of iterative reconstruction technique) TECHNICAL DOCUMENTATION: JOB ID: [id number] [employer]- All Rights Reserved Reading location - IP/workstation name: [email or web address]
[2018-02-27] MEDS ORDERED: ONDANSETRON ODT 4 MG TAB (6 TAB/ER DISP) PO PRN (22:08)
[2018-02-27 23:38] VITALS: BP 138/87
== END 2018-02-27 23:39 | disposition home or self-care (01) ==
LOC: ER 21:08
DX: G44.209 Tension-type headache, unspecified, not intractable (principal); M54.2 Cervicalgia; R10.9 Unspecified abdominal pain; R11.0 Nausea; R35.0 Frequency of micturition; J45.909 Unspecified asthma, uncomplicated
CPT/HCPCS: 99284; 96374; 96375; 87086; 81025; 81001; 70450; J1200; J1885; J0780

== ENCOUNTER 2018-03-09 21:39 | Emergency (ER) | payer SELFPAY ==
[2018-03-09] MEDS ORDERED: HYDROXYCHLOROQUINE SULFATE 200 MG TABLET PO ONE (22:55)
[2018-03-09] MEDS ORDERED: PREDNISONE 20 MG TABLET PO ONE (22:56)
--- NOTE | 2018-03-09 22:58 | ER Document Report ---
ED General - General Chief Complaint: Hand Pain Stated Complaint: HAND SWELLING Time Seen by Provider: 03/09/18 22:46 Notes: Patient is a 32-year-old female with a history of lupus who comes in with hand swelling. She says that she has had this a few times before and it subsided for a lupus flare. She says it always goes away with steroids. She said this time she thinks it occurred because she ran out of her Plaquenil approximately a week ago. 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 She denies any history of kidney issues. He says she has been urinating normally without any darkening of her urine or any decrease in urination. She says she has had swelling in the past her kidney functions always been normal. She denies any chest pain or shortness of breath. No fevers. No headache. No other complaints at this time. TRAVEL OUTSIDE OF THE [place] IN LAST 30 DAYS: No - Related Data Allergies/Adverse Reactions: No Known Allergies Allergy (Verified 02/20/18 19:09) Past Medical History - Social History Smoking Status: Never Smoker Chew tobacco use (# tins/day): No Frequency of alcohol use: None Drug Abuse: None Family History: Arthritis, CAD, CVA, DM, Hyperlipidemia, Hypertension, Thyroid Disfunction. denies: COPD, Malignancy Patient has suicidal ideation: No Patient has homicidal ideation: No Pulmonary Medical History: Reports: Hx Asthma Renal/ Medical History: Denies: Hx Peritoneal Dialysis GI Medical History: Reports: Hx Gastroesophageal Reflux Disease Musculoskeletal Medical History: Reports Hx Arthritis Psychiatric Medical History: Reports: Hx Depression Past Surgical History: Reports: Hx Adenoidectomy, Hx Tonsillectomy - tonsils and adenoids - Immunizations Immunizations up to date: No Hx Diphtheria, Pertussis, Tetanus Vaccination: No Review of Systems - Review of Systems Notes: My Normal Review Basic REVIEW OF SYSTEMS: CONSTITUTIONAL : Denies fever, chills, or sweats. Denies recent illness. EENT: Denies eye, ear, throat, or mouth pain or symptoms. Denies nasal or sinus congestion. CARDIOVASCULAR: Denies chest pain. RESPIRATORY: Denies cough, cold, or chest congestion. Denies shortness of breath, difficulty breathing, or wheezing. GASTROINTESTINAL: Denies abdominal pain. Denies nausea, vomiting, or diarrhea. MUSCULOSKELETAL: Bilateral hand swelling SKIN: Denies rash or skin lesions. NEUROLOGICAL: Denies altered mental status or loss of consciousness. Denies headache. Denies weakness or paralysis or loss of use of either side. Denies problems with gait or speech. Denies sensory or motor loss. ALL OTHER SYSTEMS REVIEWED AND NEGATIVE. Physical Exam - Vital signs Vitals: Temp Pulse Resp BP Pulse Ox 99.8 F 89 19 122/69 100 03/09/18 22:12 03/09/18 22:12 03/09/18 22:12 03/09/18 22:12 03/09/18 22:12 - Notes Notes: General Appearance: Well nourished, alert, cooperative, no acute distress, no obvious discomfort. Vitals: reviewed, See vital signs table. Head: no swelling or tenderness to the head Eyes: PERRL, EOMI, Conjuctiva clear Mouth: No decreasd moisture Lungs: No wheezing, No rales, No rhonci, No accessory muscle use, good air exchange bilaterally. Heart: Normal rate, Regular rythm, No murmur, no rub Extremities: strength 5/5 in all extremities, good pulses in all extremities, swelling to bilateral hands. No redness or abnormal warmth. Skin: warm, dry, appropriate color, no rash Neuro: speech clear, oriented x 3, normal affect, responds appropriately to questions. Course - Re-evaluation Re-evalutation: 03/10/18 06:45 Patient will be started on a steroid burst. We will give her 6 mg a day for 5 days. This has worked well for the past. I have represcribed her Plaquenel for her. Encouraged her return to ER if she has worsening swelling in her hands , difficulty urinating, any chest pain, shortness of breath, headache, or she feels unwell. Patient agrees with plan will be discharged home. Dictation of this chart was performed using voice recognition software; therefore, there may be some unintended grammatical errors. - Vital Signs Vital signs: Temp Pulse Resp BP Pulse Ox 98.8 F 93 18 108/64 100 03/09/18 23:28 03/09/18 23:28 03/09/18 23:28 03/09/18 23:28 03/09/18 23:28 Discharge - Discharge Clinical Impression: Bilateral hand swelling Lupus Qualifiers: Systemic lupus erythematosus type: unspecified Systemic lupus erythematosus organ involvement: unspecified Qualified Code(s): M32.9 - Systemic lupus erythematosus, unspecified Condition: Good Disposition: HOME, SELF-CARE Additional Instructions: Please take the medications as prescribed. Please return to the ER immediately if you develop worsening hand swelling, difficulty breathing, chest pain, decreased urination, dark urine, fevers, or if you feel that you are worsening in any way. Prescriptions: Hydroxychloroquine Sulfate [Plaquenil 200 mg Tablet] 400 mg PO DAILY #30 tab Prednisone [Deltasone 20 mg Tablet] 3 tab PO DAILY 4 Days tablet
[2018-03-09] MEDS ORDERED: HYDROXYCHLOROQUINE SULFATE 200 MG TABLET ONE (23:11)
[2018-03-09 23:29] VITALS: BP 108/64
== END 2018-03-09 23:29 | disposition home or self-care (01) ==
LOC: ER 21:39
DX: M32.9 Systemic lupus erythematosus, unspecified (principal); T37.8X6A Underdosing of other specified systemic anti-infectives and antiparasitics, initial encounter; Z91.128 Patient's intentional underdosing of medication regimen for other reason; Z91.14 Patient's other noncompliance with medication regimen; M79.89 Other specified soft tissue disorders; J45.909 Unspecified asthma, uncomplicated
CPT/HCPCS: 99283; J3490; J7512

== ENCOUNTER 2018-03-22 11:52 | Emergency (ER) | payer MEDICAID ==
--- NOTE | 2018-03-22 12:22 | ER Document Report ---
ED Medical Screen (RME) - General Chief Complaint: Back Pain Stated Complaint: BACK PAIN, DIFFICULTY BREATHING Time Seen by Provider: 03/22/18 12:12 Notes: 32 years old female with a history of systemic lupus erythematosus, 7 weeks , presents today with sudden onset of shortness of breath and pain over the back since yesterday, which was progressing. The shortness of breath on rest as well as exertion. The chest pain she feels it deep inside the chest. Any movement of the chest wall does not make any difference to her chest pain. But she was doing some housework cleaning yesterday. Coughing on and off largely dry cough. Denied any fever chills. Denies any other constitutional symptoms. Denies abdominal pain She had 5 pregnancies, 5 children, with twins. Did not have any complication during previously. TRAVEL OUTSIDE OF THE [place] IN LAST 30 DAYS: No - Related Data Allergies/Adverse Reactions: No Known Allergies Allergy (Verified 03/22/18 12:08) Past Medical History - Social History Chew tobacco use (# tins/day): No Frequency of alcohol use: None Drug Abuse: None Pulmonary Medical History: Reports: Hx Asthma Renal/ Medical History: Denies: Hx Peritoneal Dialysis GI Medical History: Reports: Hx Gastroesophageal Reflux Disease Musculoskeltal Medical History: Reports Hx Arthritis Psychiatric Medical History: Reports: Hx Depression Past Surgical History: Reports: Hx Adenoidectomy, Hx Tonsillectomy - tonsils and adenoids - Immunizations Immunizations up to date: No Hx Diphtheria, Pertussis, Tetanus Vaccination: No Physical Exam - Vital signs Vitals: Temp Pulse Resp BP Pulse Ox 99.2 F 94 16 137/84 H 100 03/22/18 11:54 03/22/18 11:54 03/22/18 11:54 03/22/18 11:54 03/22/18 11:54 Course - Vital Signs Vital signs: Temp Pulse Resp BP Pulse Ox 99.2 F 94 16 137/84 H 100 03/22/18 11:54 03/22/18 11:54 03/22/18 11:54 03/22/18 11:54 03/22/18 11:54
[2018-03-22 12:51] LABS: ABSOLUTE LYMPHOCYTES (AUTO) 0.5 10^3/uL (0.5-4.7); ABSOLUTE MONOCYTES (AUTO) 0.2 10^3/uL (0.1-1.4); ABSOLUTE NEUT (AUTO) 2.9 10^3/uL (1.7-8.2); BASOPHILS % (AUTO) 0.1 % (0-2); EOSINOPHILS % (AUTO) 0.2 % (0-6); LYMPHOCYTES % (AUTO) 12.7 % (13-45); MEAN CORPUSCULAR HEMOGLOBIN 25.8 pg (27.0-33.4); MEAN CORPUSCULAR HGB CONC 33.2 g/dL (32.0-36.0); MEAN CORPUSCULAR VOLUME 78 fl (80-97); MONOCYTES % (AUTO) 6.7 % (3-13); PLATELET COUNT 202 10^3/uL (150-450); RED BLOOD COUNT 3.85 10^6/uL (3.72-5.28); RED CELL DISTRIBUTION WIDTH 17.6 % (11.5-14.0); SEGMENTED NEUTROPHILS % (AUTO) 80.3 % (42-78); TOTAL CELLS COUNTED % (AUTO) 100 %; WHITE BLOOD COUNT 3.6 10^3/uL (4.0-10.5)
[2018-03-22 13:30] LABS: ALANINE AMINOTRANSFERASE 20 U/L (9-52); ALBUMIN 3.2 g/dL (3.5-5.0); ALKALINE PHOSPHATASE 47 U/L (38-126); ANION GAP 14 (5-19); ASPARTATE AMINO TRANSFERASE 15 U/L (14-36); BILIRUBIN,DIRECT 0.2 mg/dL (0.0-0.4); BILIRUBIN,TOTAL 0.3 mg/dL (0.2-1.3); BLOOD UREA NITROGEN 13 mg/dL (7-20); CALCIUM 8.7 mg/dL (8.4-10.2); CARBON DIOXIDE 20 mmol/L (22-30); CHLORIDE 106 mmol/L (98-107); GLUCOSE 109 mg/dL (75-110); POTASSIUM 4.1 mmol/L (3.6-5.0); SODIUM 139.7 mmol/L (137-145); TOTAL PROTEIN 6.7 g/dL (6.3-8.2)
--- NOTE | 2018-03-22 13:44 | ER Document Report ---
ED General - General Chief Complaint: Back Pain Stated Complaint: BACK PAIN, DIFFICULTY BREATHING Time Seen by Provider: 03/22/18 12:12 Notes: 32-year-old female patient emergency department for evaluation of left flank/ left posterior chest pain. Hurts to take a deep breath. Denies any fever, chills or sweats. History of lupus. No prior history of blood clots. No other major symptoms. Has not had any urinary symptoms. TRAVEL OUTSIDE OF THE [place] IN LAST 30 DAYS: No - HPI Onset: Yesterday Onset/Duration: Gradual Quality of pain: Achy Severity: Mild Pain Level: 1 Associated symptoms: Hurts to breath Exacerbated by: Movement, Deep breathing - Related Data Allergies/Adverse Reactions: No Known Allergies Allergy (Verified 03/22/18 12:08) Past Medical History - General Information source: Patient - Social History Smoking Status: Never Smoker Chew tobacco use (# tins/day): No Frequency of alcohol use: None Drug Abuse: None Lives with: Spouse/Significant other Family History: Arthritis, CAD, CVA, DM, Hyperlipidemia, Hypertension, Thyroid Disfunction. denies: COPD, Malignancy Patient has suicidal ideation: No Patient has homicidal ideation: No Pulmonary Medical History: Reports: Hx Asthma Renal/ Medical History: Denies: Hx Peritoneal Dialysis GI Medical History: Reports: Hx Gastroesophageal Reflux Disease Musculoskeletal Medical History: Reports Hx Arthritis Psychiatric Medical History: Reports: Hx Depression Past Surgical History: Reports: Hx Adenoidectomy, Hx Tonsillectomy - tonsils and adenoids - Immunizations Immunizations up to date: No Hx Diphtheria, Pertussis, Tetanus Vaccination: No Review of Systems - Review of Systems Constitutional: No symptoms reported EENT: No symptoms reported Cardiovascular: Chest pain - Posterior left-sided chest wall pain Respiratory: Hurts to breathe - Deep inspiration. denies: Short of breath, Wheezing Gastrointestinal: No symptoms reported Genitourinary: No symptoms reported Female Genitourinary: . denies: Vaginal discharge, Vaginal odor Musculoskeletal: Back pain. denies: Joint pain, Muscle pain, Leg swelling, Ankle swelling Skin: No symptoms reported Hematologic/Lymphatic: No symptoms reported Neurological/Psychological: No symptoms reported Physical Exam - Vital signs Vitals: Temp Pulse Resp BP Pulse Ox 99.2 F 94 16 137/84 H 100 03/22/18 11:54 03/22/18 11:54 03/22/18 11:54 03/22/18 11:54 03/22/18 11:54 Interpretation: Normal - General General appearance: Appears well, Alert - HEENT Head: Normocephalic, Atraumatic Eyes: Normal Pupils: PERRL - Respiratory Respiratory status: No respiratory distress Chest status: Nontender Breath sounds: Normal Chest palpation: Normal - Cardiovascular Rhythm: Regular Heart sounds: Normal auscultation Murmur: No - Abdominal Inspection: Normal Distension: No distension Bowel sounds: Normal Tenderness: Nontender Organomegaly: No organomegaly - Back Back: Normal, Nontender - Extremities General upper extremity: Normal inspection, Nontender, Normal color, Normal ROM , Normal temperature General lower extremity: Normal inspection, Nontender, Normal color, Normal ROM , Normal temperature, Normal weight bearing. No: Marko's sign - Neurological Neuro grossly intact: Yes Cognition: Normal Orientation: AAOx4 [place] Coma Scale Eye Opening: Spontaneous Jorge A Coma Scale Verbal: Oriented [place] Coma Scale Motor: Obeys Commands [place] Coma Scale Total: 15 Speech: Normal Motor strength normal: LUE, RUE, LLE, RLE Sensory: Normal - Psychological Associated symptoms: Normal affect, Normal mood - Skin Skin Temperature: Warm Skin Moisture: Dry Skin Color: Normal Course - Re-evaluation Re-evalutation: 03/22/18 14:46 Patient is describing some pain with deep inspiration the left posterior chest wall area. No shortness of breath however. Taking shallow breaths because it hurts to take a deep breath. Patient does have a history of asthma. History of lupus. Even though the d-dimer level is extremely elevated she is and she does have lupus so this is a very nonspecific finding. She once again does not state that she feels short of breath at all. Has had no recent long trips or travel. Denies any leg pain or leg swelling. Denies any previous history of pulmonary embolism or deep vein thrombosis. Discussed the risks and benefits of performing CT angios of the chest with a 6-week-old fetus. I have no problem ordering this and doing this workup however patient in my opinion is very low risk for pulmonary embolism at this time. Patient is describing more chest wall pain versus low back pain. Long discussion had with patient regarding CT scan and the pros and cons of doing the study at this time. We have decided to do a chest x-ray breathing treatment and Tylenol. Strict instructions were given the patient's symptoms were to get worse or she develops shortness of breath she should return immediately and we would take deeper into this issue. 03/22/18 15:38 Chest x-ray shows some atelectasis of the left lung base which is consistent with what I am seeing on exam. Patient feels better after the breathing treatment and Tylenol. Once again strict warning signs have been given. Will DC at this time. - Vital Signs Vital signs: Temp Pulse Resp BP Pulse Ox 99.2 F 94 16 137/84 H 100 03/22/18 11:54 03/22/18 11:54 03/22/18 11:54 03/22/18 11:54 03/22/18 11:54 - Laboratory Result Diagrams: 03/22/18 12:30 03/22/18 12:30 Laboratory results interpreted by me: 03/22/18 03/22/18 03/22/18 12:30 12:30 12:30 WBC 3.6 L Hgb 10.0 L Hct 30.0 L MCV 78 L MCH 25.8 L RDW 17.6 H Seg Neutrophils % 80.3 H Lymphocytes % 12.7 L D-Dimer 9.44 H Carbon Dioxide 20 L Albumin 3.2 L Beta HCG, Quant 66352.00 H Urine Protein Urine Urobilinogen Ur Leukocyte Esterase 03/22/18 13:47 WBC Hgb Hct MCV MCH RDW Seg Neutrophils % Lymphocytes % D-Dimer Carbon Dioxide Albumin Beta HCG, Quant Urine Protein 30 H Urine Urobilinogen 2.0 H Ur Leukocyte Esterase SMALL H Discharge - Discharge Clinical Impression: Atelectasis of left lung Condition: Good Disposition: HOME, SELF-CARE Instructions: Pleurisy ([facility]), Chest Wall Pain ([facility]) Additional Instructions: It will be very important that you take big deep breaths. You may use the albuterol inhaler as prescribed to help with the breathing. You may take Tylenol as needed for pain but no more than 3 grams a day. In the event that you develop shortness of breath, worsening symptoms, leg pain and swelling, feeling like you are going to pass out or any other concerns you should return immediately. Prescriptions: Albuterol Sulfate [Proair HFA Inhalation Aerosol 8.5 gm MDI] 2 puff IH Q4H PRN # 1 mdi PRN Reason: Referrals: MICHAELS,JASON, MD [Primary Care Provider] - Follow up as needed
[2018-03-22 14:12] LABS: APPEARANCE,URINE SLIGHTLY-CLOUDY; BILIRUBIN,URINE NEGATIVE (NEGATIVE); COLOR,URINE YELLOW; GLUCOSE, URINE NEGATIVE (NEGATIVE); KETONES,URINE NEGATIVE (NEGATIVE); LEUKOCYTE ESTERASE,URINE SMALL (NEGATIVE); NITRITE,URINE NEGATIVE (NEGATIVE); PROTEIN,URINE 30 mg/dL (NEGATIVE); URINE SPECIFIC GRAVITY 1.026
[2018-03-22] MEDS ORDERED: ACETAMINOPHEN 325 MG TABLET PO ONE (14:45)
[2018-03-22] MEDS ORDERED: ALBUTEROL SULFATE 0.083% NEB 2.5 MG/3 ML AMPUL NEB ONE (14:45)
--- NOTE | 2018-03-22 15:20 | RADIOLOGY REPORT (SQ) ---
EXAM DESCRIPTION: CHEST 2 VIEWS COMPLETED DATE/TIME: 03/22/2018 3:10 pm REASON FOR STUDY: left post chest/back pain COMPARISON: None. EXAM PARAMETERS: NUMBER OF VIEWS: two views TECHNIQUE: Digital Frontal and Lateral radiographic views of the chest acquired. RADIATION DOSE: NA LIMITATIONS: none FINDINGS: LUNGS AND PLEURA: Mild subsegmental atelectasis in the left lung base. No consolidation, masses or pneumothorax. No pleural effusion. MEDIASTINUM AND HILAR STRUCTURES: No masses or contour abnormalities. HEART AND VASCULAR STRUCTURES: Heart normal size. No evidence for failure. BONES: No acute findings. HARDWARE: None in the chest. OTHER: No other significant finding. IMPRESSION: Mild subsegmental atelectasis in the left lung base. No consolidation. TECHNICAL DOCUMENTATION: JOB ID: [id number] [employer]- All Rights Reserved Reading location - IP/workstation name: [email or web address]
[2018-03-22 15:53] VITALS: BP 120/67
== END 2018-03-22 15:51 | disposition home or self-care (01) ==
LOC: ER 11:52
DX: O99.511 Diseases of the respiratory system complicating pregnancy, first trimester (principal); J98.11 Atelectasis; J45.909 Unspecified asthma, uncomplicated; O26.891 Other specified pregnancy related conditions, first trimester; R07.1 Chest pain on breathing; R10.9 Unspecified abdominal pain; O99.89 Other specified diseases and conditions complicating pregnancy, childbirth and the puerperium; M54.9 Dorsalgia, unspecified; O99.711 Diseases of the skin and subcutaneous tissue complicating pregnancy, first trimester; L93.0 Discoid lupus erythematosus; Z3A.01 Less than 8 weeks gestation of pregnancy
CPT/HCPCS: 99283; 36415; 84702; 85025; 80053; 81001; 85379; 71046; J3490

== ENCOUNTER → 2018-03-25 | Outpatient (CLI) | payer SELFPAY ==
--- NOTE | 2018-03-25 16:02 | RADIOLOGY REPORT (SQ) ---
EXAM DESCRIPTION: U/S [id number] TRNABD 1GES W/ODOP COMPLETED DATE/TIME: 03/25/2018 3:51 pm REASON FOR STUDY: Z34.81 ENCOUNTER FOR SUPRVSN OF NORMAL , FIRST TRIMESTER Z34.81 ENCOUNTE R FOR SUPRVSN OF NORMAL , FIRST TRIM COMPARISON: 01/03/2018 TECHNIQUE: Transabdominal static and realtime grayscale images acquired of the pelvis. Additional se lected spectral and color Doppler images recorded. All images stored [facility] PACs. [facility]. CLINICAL DATES: LMP 02/02/2018 7 weeks 2 days. LIMITATIONS: None. FINDINGS: FETUS: Living intrauterine . ULTRASOUND EGA: 6 weeks 5 days ULTRASOUND NIK: 11/12/2018 CRL: 0.75 cm FHR: 144 beats per minute. SUBCHORIONIC BLEED: No SIZE OF BLEED: Not applicable. UTERUS: No masses or anomalies. 13.6 x 9 x 7.9 cm. CERVICAL LENGTH: 3.4 cm Closed. RIGHT ADNEXA: Ovary not seen. No adnexal free fluid. No adnexal masses. LEFT ADNEXA: 3.7 x 2.6 x 2.4 cm. Normal. No adnexal free fluid. No adnexal masses. FREE FLUID: None. OTHER: No other significant finding. IMPRESSION: LIVING INTRAUTERINE . EGA 6 weeks 5 days. Trimester of : First - 0 to 13 weeks. TECHNICAL DOCUMENTATION: JOB ID: [id number] [employer]- All Rights Reserved rev-01/11 Reading location - IP/workstation name: [email or web address]
== END ==
LOC: RAD 16:21
PROVIDERS: ATTEND Nurse Practitioner Women's Health
DX: Z34.81 Encounter for supervision of other normal pregnancy, first trimester (principal)
CPT/HCPCS: 76801

== ENCOUNTER 2018-04-11 08:49 | Emergency (ER) | payer MEDICAID ==
[2018-04-11] MEDS ORDERED: KETOROLAC TROMETHAMINE INJ/PF 30 MG/1 ML SDV IV ONE (09:36)
[2018-04-11] MEDS ORDERED: METHYLPREDNISOLONE INJ 125 MG/2 ML SDV IV ONE (09:36)
--- NOTE | 2018-04-11 09:38 | ER Document Report ---
ED Medical Screen (RME) - General Chief Complaint: Hand Swelling Stated Complaint: JOINT PAIN Time Seen by Provider: 04/11/18 09:34 Notes: 32 years old female with a history of systemic lupus erythematosus, had a flareup last Sunday that is 9 days ago, was treated at [facility] with steroids and Plaquenil, she was told that she had pleurisy. She also had joint swelling at that time. Discharge home without any medications. She states the Crestor prescription was given to her. She presents today with pain and swelling over the hands particularly the right hand, over the interphalangeal joints. Difficulty in breathing. No fever chills or other constitutional symptoms. On examination-noted that she is short of breath on minimal exertion. Both hands are warm to touch, swelling over the right second and third fingers were very prominent. Tender to touch. TRAVEL OUTSIDE OF THE [place] IN LAST 30 DAYS: No - Related Data Allergies/Adverse Reactions: No Known Allergies Allergy (Verified 04/11/18 09:25) Past Medical History Pulmonary Medical History: Reports: Hx Asthma Renal/ Medical History: Denies: Hx Peritoneal Dialysis GI Medical History: Reports: Hx Gastroesophageal Reflux Disease Musculoskeltal Medical History: Reports Hx Arthritis Psychiatric Medical History: Reports: Hx Depression Past Surgical History: Reports: Hx Adenoidectomy, Hx Tonsillectomy - tonsils and adenoids - Immunizations Immunizations up to date: No Hx Diphtheria, Pertussis, Tetanus Vaccination: No Physical Exam - Vital signs Vitals: Temp Pulse Resp BP Pulse Ox 98.4 F 91 20 112/77 99 04/11/18 08:51 04/11/18 08:51 04/11/18 08:51 04/11/18 08:51 04/11/18 08:51 Course - Vital Signs Vital signs: Temp Pulse Resp BP Pulse Ox 98.4 F 91 20 112/77 99 04/11/18 08:51 04/11/18 08:51 04/11/18 08:51 04/11/18 08:51 04/11/18 08:51 Doctor's Discharge - Discharge Referrals: MONICO SPANGLER, MYRNA [Primary Care Provider] - Follow up as needed
[2018-04-11 10:15] LABS: ABSOLUTE LYMPHOCYTES (AUTO) 0.7 10^3/uL (0.5-4.7); ABSOLUTE MONOCYTES (AUTO) 0.3 10^3/uL (0.1-1.4); ABSOLUTE NEUT (AUTO) 2.8 10^3/uL (1.7-8.2); BASOPHILS % (AUTO) 0.3 % (0-2); EOSINOPHILS % (AUTO) 0.4 % (0-6); HEMATOCRIT 25.1 % (36.0-47.0); HEMOGLOBIN 8.3 g/dL (12.0-15.5); LYMPHOCYTES % (AUTO) 18.7 % (13-45); MEAN CORPUSCULAR HEMOGLOBIN 25.9 pg (27.0-33.4); MEAN CORPUSCULAR HGB CONC 33.2 g/dL (32.0-36.0); MEAN CORPUSCULAR VOLUME 78 fl (80-97); MONOCYTES % (AUTO) 7.3 % (3-13); PLATELET COUNT 278 10^3/uL (150-450); RED BLOOD COUNT 3.22 10^6/uL (3.72-5.28); RED CELL DISTRIBUTION WIDTH 16.3 % (11.5-14.0); SEGMENTED NEUTROPHILS % (AUTO) 73.3 % (42-78); TOTAL CELLS COUNTED % (AUTO) 100 %; WHITE BLOOD COUNT 3.8 10^3/uL (4.0-10.5)
--- NOTE | 2018-04-11 10:24 | RADIOLOGY REPORT (SQ) ---
EXAM DESCRIPTION: CHEST SINGLE VIEW COMPLETED DATE/TIME: 04/11/2018 10:17 am REASON FOR STUDY: sob/lupus systemic COMPARISON: AP chest 03/22/2018 EXAM PARAMETERS: NUMBER OF VIEWS: One view. TECHNIQUE: Single frontal radiographic view of the chest acquired. RADIATION DOSE: NA LIMITATIONS: None. FINDINGS: LUNGS AND PLEURA: Patchy airspace disease at both lung bases, likely atelectasis. Superim posed acute pneumonia could not be excluded. There are trace bilateral pleural effusions present. No pneumothorax MEDIASTINUM AND HILAR STRUCTURES: No masses. Contour normal. HEART AND VASCULAR STRUCTURES: No cardiomegaly BONES: No acute findings. HARDWARE: None in the chest. OTHER: No other significant finding. IMPRESSION: Bibasilar airspace disease with trace pleural effusions. TECHNICAL DOCUMENTATION: JOB ID: [id number] [employer]- All Rights Reserved Reading location - IP/workstation name: [email or web address]
[2018-04-11 10:32] LABS: ALANINE AMINOTRANSFERASE 11 U/L (9-52); ALBUMIN 2.9 g/dL (3.5-5.0); ALKALINE PHOSPHATASE 51 U/L (38-126); ANION GAP 14 (5-19); ASPARTATE AMINO TRANSFERASE 17 U/L (14-36); BILIRUBIN,DIRECT 0.3 mg/dL (0.0-0.4); BILIRUBIN,TOTAL 0.3 mg/dL (0.2-1.3); BLOOD UREA NITROGEN 15 mg/dL (7-20); CALCIUM 8.5 mg/dL (8.4-10.2); CARBON DIOXIDE 21 mmol/L (22-30); CHLORIDE 108 mmol/L (98-107); CREATINE KINASE 21 U/L (30-135); GLUCOSE 113 mg/dL (75-110); POTASSIUM 4.3 mmol/L (3.6-5.0); SODIUM 143.2 mmol/L (137-145); TOTAL PROTEIN 6.7 g/dL (6.3-8.2)
[2018-04-11 10:41] LABS: NT PRO BNP 1330 pg/mL (<125)
[2018-04-11 10:43] LABS: CREATINE KINASE MB < 0.22 ng/mL (<4.55); TROPONIN I < 0.012 ng/mL
[2018-04-11 10:58] LABS: ERYTHROCYTE SEDIMENTATION RATE 88 mm/hr (0-20)
[2018-04-11 11:08] LABS: APPEARANCE,URINE SLIGHTLY-CLOUDY; BILIRUBIN,URINE NEGATIVE (NEGATIVE); COLOR,URINE YELLOW; GLUCOSE, URINE NEGATIVE (NEGATIVE); KETONES,URINE NEGATIVE (NEGATIVE); LEUKOCYTE ESTERASE,URINE SMALL (NEGATIVE); NITRITE,URINE NEGATIVE (NEGATIVE); PROTEIN,URINE 30 mg/dL (NEGATIVE); URINE SPECIFIC GRAVITY 1.017; UROBILINOGEN,URINE NEGATIVE mg/dL (<2.0)
--- NOTE | 2018-04-11 12:31 | EKG REPORT ---
SEVERITY:- NORMAL ECG - SINUS RHYTHM : Confirmed by: Lele Brown MD 11-Apr-2018 12:30:55
--- NOTE | 2018-04-11 12:33 | RADIOLOGY REPORT (SQ) ---
EXAM DESCRIPTION: CTA CHEST COMPLETED DATE/TIME: 04/11/2018 11:54 am REASON FOR STUDY: Hx lupus, bilateral pleural effusions and infiltra COMPARISON: None. TECHNIQUE: CT scan of the chest performed using helical scanning technique with dynamic intravenous contrast injection. Images reviewed with lung, soft tissue and bone windows. Reconstructed coronal and sagittal MPR images reviewed. Additional 3 dimensional post-processing performed to develop Maximal Intensity Projection images (ND P). All images stored on PACS. Patient's abdomen pelvis was shielded with lead during the CT exposures. All CT scanners at this facility use dose modulation, iterative reconstruction, and/or weight based d osing when appropriate to reduce radiation dose to as low as reasonably achievable (ALARA). [facility]: Dose Right [facility]: CareDose [facility]: Dose Right [facility]: Teradose 4D [facility]: [facility] CONTRAST TYPE AND DOSE: contrast/concentration: Isovue 350.00 mg/ml; Total Contrast Delivered: 86.0 ml; Total Saline Delivered: 76.4 ml Contrast bolus optimized for the pulmonary arteries. Not diagnostic for the aorta. RENAL FUNCTION: Creatinine 0.95 RADIATION DOSE: CT Rad equipment meets quality standard of care and radiation dose reduction techniq ues were employed. CTDIvol: 21.6 - 33.1 mGy. DLP: 808 mGy-cm. . LIMITATIONS: Limited pulmonary artery bolus FINDINGS: LUNGS AND PLEURA: Patchy bibasilar bandlike airspace disease is present likely atelectasis . Pneumonia could not entirely be excluded. There is trace pleural fluid in the dependent portion of the right and left chest. No pneumothorax. No worrisome pulmonary nodules. Airways are patent. No ground-glass opacities wor risome for pulmonary edema. AORTA AND GREAT VESSELS: No aneurysm. Contrast bolus not optimized for the aorta. HEART: No pericardial effusion. No significant coronary artery calcifications. PULMONARY ARTERIES: No emboli visualized in the main pulmonary arteries or the segmental branches. HILAR AND MEDIASTINAL STRUCTURES: No identified masses or abnormal nodes. HARDWARE: None in the chest. UPPER ABDOMEN: No significant findings. Limited exam. THYROID AND OTHER SOFT TISSUES: No masses. No adenopathy. BONES: No acute or significant finding. 3D MIPS: Confirm above findings. OTHER: No other significant finding. IMPRESSION: No CT angio evidence of acute pulmonary emboli. Trace bilateral pleural effusions with bibasilar bandlike airspace disease likely atelectasis. COMMENT: Quality ID # [id number]: Final reports with documentation of one or more dose reduction techniques (e.g., Automated exposure control, adjustment of the mA and/or kV according to patient size, use of iterative reconstruction technique) TECHNICAL DOCUMENTATION: JOB ID: [id number] [employer]- All Rights Reserved Reading location - IP/workstation name: [email or web address] [id number]
--- NOTE | 2018-04-11 14:05 | ER Document Report ---
ED General - General Chief Complaint: Hand Swelling Stated Complaint: JOINT PAIN Time Seen by Provider: 04/11/18 09:34 Notes: Patient is complaining of pain and swelling of her joints, especially of her hands, and somewhat so of her ankles and feet. She has lupus and when it flares , these are the areas that are usually involved. She is been having health problems for the past couple of weeks. Has been seen a couple of times a [facility] and admitted there 1 of those times. She was recently , but something happened in the fetus did not survive and she had a D&C done on April 01. She says that she had CT scans another studies done and was told she might have pneumonia, but was not put on an antibiotic. She was told she had fluid in her lungs and given a prescription for Lasix which she filled but did not take. She says that when she gets like this, she usually gets prednisone. Has not had any fever or chills. Patient is to see Dr. Jennings on April 17. She is out of her usual medications which include prednisone and Plaquenil. Patient also has a history of asthma, but not on any medications for this condition. TRAVEL OUTSIDE OF THE [place] IN LAST 30 DAYS: No - Related Data Allergies/Adverse Reactions: No Known Allergies Allergy (Verified 04/11/18 09:25) Past Medical History - Social History Smoking Status: Never Smoker Chew tobacco use (# tins/day): No Frequency of alcohol use: None Drug Abuse: None Family History: Reviewed & Not Pertinent, Arthritis, CAD, CVA, DM, Hyperlipidemia, Hypertension, Thyroid Disfunction. denies: COPD, Malignancy Patient has suicidal ideation: No Patient has homicidal ideation: No Pulmonary Medical History: Reports: Hx Asthma GI Medical History: Reports: Hx Gastroesophageal Reflux Disease Musculoskeletal Medical History: Reports Hx Arthritis, Reports Other - Lupus Psychiatric Medical History: Reports: Hx Depression Past Surgical History: Reports: Hx Adenoidectomy, Hx Gynecologic Surgery - D/C, Hx Tonsillectomy - tonsils and adenoids - Immunizations Immunizations up to date: No Hx Diphtheria, Pertussis, Tetanus Vaccination: No Review of Systems - Review of Systems Notes: REVIEW OF SYSTEMS: CONSTITUTIONAL : Denies fever. EENT: Denies eye, ear, nose or mouth or throat pain or other symptoms. CARDIOVASCULAR: Denies chest pain. No pretibial edema. RESPIRATORY: Has a cough, sometimes productive. Short of breath with activity. GASTROINTESTINAL: Denies abdominal pain or nausea, vomiting, or diarrhea. GENITOURINARY: Denies difficulty or painful urinating, urinary frequency, blood in urine. MUSCULOSKELETAL: Denies back or neck pain. Denies joint pain or swelling. Negative Homans bilaterally. SKIN: Denies rash or skin lesions. NEUROLOGICAL: Denies LOC or altered mental status. Denies headache. Denies sensory loss or motor deficits. ALL OTHER SYSTEMS REVIEWED AND NEGATIVE. Physical Exam - Vital signs Vitals: Temp Pulse Resp BP Pulse Ox 98.4 F 91 20 112/77 99 04/11/18 08:51 04/11/18 08:51 04/11/18 08:51 04/11/18 08:51 04/11/18 08:51 Interpretation: Normal. No: Hypoxic, Febrile - Notes Notes: PHYSICAL EXAMINATION: GENERAL: Well-appearing, in no acute distress. Vital signs are all normal. Not hypoxic. Not febrile. HEAD: Atraumatic, normocephalic. EYES: Pupils equal round and reactive to light, extraocular movements intact. ENT: oropharynx clear without exudates. Moist mucous membranes. NECK: Normal range of motion, supple. LUNGS: Breath sounds with a few mild by basilar rales heard. HEART: Regular rate and rhythm without murmurs. ABDOMEN: Soft, nontender. No guarding or rebound. No masses. BACK: No tenderness throughout entire back. EXTREMITIES: Normal range of motion without pain. Negative Homans bilaterally. No significant pretibial edema present. NEUROLOGICAL: Normal speech, normal gait. Normal sensory, motor, and reflex exams. Awake, alert, and oriented x3. Cranial nerves normal. PSYCH: Normal mood, normal affect. SKIN: Warm, dry, no rashes. Course - Vital Signs Vital signs: Temp Pulse Resp BP Pulse Ox 98.1 F 85 18 110/75 100 04/11/18 14:20 04/11/18 14:20 04/11/18 14:20 04/11/18 14:20 04/11/18 14:20 - Laboratory Result Diagrams: 04/11/18 09:45 04/11/18 09:45 Laboratory results interpreted by me: 04/11/18 04/11/18 04/11/18 09:45 09:45 09:45 WBC 3.8 L RBC 3.22 L Hgb 8.3 L Hct 25.1 L MCV 78 L MCH 25.9 L RDW 16.3 H ESR 88 H Chloride 108 H Carbon Dioxide 21 L Glucose 113 H Creatine Kinase 21 L C-Reactive Protein 41.0 H NT-Pro-B Natriuret Pep 1330 H Albumin 2.9 L Beta HCG, Quant Urine Protein Urine Blood Ur Leukocyte Esterase Urine HCG, Qual 04/11/18 04/11/18 09:45 09:45 WBC RBC Hgb Hct MCV MCH RDW ESR Chloride Carbon Dioxide Glucose Creatine Kinase C-Reactive Protein NT-Pro-B Natriuret Pep Albumin Beta HCG, Quant 24.73 H Urine Protein 30 H Urine Blood SMALL H Ur Leukocyte Esterase SMALL H Urine HCG, Qual POSITIVE H 04/11/18 19:38 Patient is anemic, says she has never had a transfusion. 04/11/18 19:39 Patient's qualitative urine test was positive but quantitative hCG was only 24.73. I advised the patient to have a repeat of the quantitative study in a week or so. Current low level of hCG is probably secondary to the patient's recent that was resulted in demise and a D&C. - Diagnostic Test Radiology reviewed: Image reviewed, Reports reviewed - CT scan shows mild bilateral pleural effusions and basilar atelectasis bilaterally. No evidence of pulmonary emboli. Radiology results interpreted by me: 04/11/18 19:37 Chest x-ray with bilateral small pleural effusions and airspace disease which could be atelectasis versus pneumonia. Discharge - Discharge Clinical Impression: Pleural effusion, Lupus, URI (upper respiratory infection) Condition: Stable Disposition: HOME, SELF-CARE Additional Instructions: Lupus You have been given a prescription for prednisone. STEROID MEDICATION: You have been given a medicine of the cortisone/steroid class. This medication is used to control inflammation or allergy. It is usually only given for a short period of time, until the acute process subsides. There are usually no side effects from short-term use of cortisone-like medications. Some persons feel an increased sense of well-being and are not sleepy at bedtime. Long-term use of cortisone medications is best avoided, unless required for a severe condition. If your condition does not remit, or relapses after the course of corticosteroid medication, you should consult your physician. Pleural Effusions You have a pleural effusion. A pleural effusion is fluid in the space between your lung and chest wall. This can be caused by pleurisy (inflammation of the lung lining), pneumonia, heart disease, pulmonary embolism (blood clots in the lung), or chest injury. It may also occur with any condition that results in severe fluid retention, such as kidney or liver failure. Occasionally the effusion is due to tumor or other serious conditions. A pleural effusion may not cause any symptoms at all. But often, there is sharp pain with breathing. A large effusion can make you short of breath. If we know what caused a pleural effusion, there's usually no need for further testing. In these cases, we treat the underlying illness. In mysterious cases, a sample of the fluid can show what caused the effusion. This sample is obtained by putting a needle between the ribs. If the effusion is large enough to cause shortness of breath, we can remove it through the needle. Follow-up is important. Be sure to see the doctor for further care. Call or return if you become very short of breath, have increasing pain, or develop a new fever. You have a prescription for Lasix Furosemide (Lasix) has been prescribed to eliminate excess fluid from your system. Lasix forces the kidney to put out extra salt and water in the urine. It is used for fluid retention due to heart or lung disease -- improving the symptoms of swelling, shortness of breath, and fatigue. Lasix may cause potassium loss (hypokalemia), so a potassium supplement is usually prescribed. If no potassium has been recommended for you, be sure to have your serum potassium checked after a short time on the medication. Contact your doctor if you have severe weakness or palpitations. Weigh yourself daily. Changes in your weight show how much salt and water your body is eliminating (or retaining). Generally, you should not lose more than about two pounds daily. Once you have lost the desired amount of extra fluid, continued weighing is recommended to monitor your condition. Take the Lasix every day as prescribed. You may have an infection in your lungs that she has PNEUMONIA: Your examination indicates that you may have pneumonia. This is an infection of the lung tissue, usually caused by bacteria or a virus. Symptoms include cough, fever, shaking chills, chest pain, shortness of breath, and coughing up bloody sputum. Treatment for bacterial pneumonia includes rest, antibiotics for 10 to 14 days, increasing your clear liquid intake, a cool mist humidifier at your bedside, and fever medication. Often, a repeat chest X-ray is performed in a few weeks--even if you feel better--to ascertain whether the infection has completely resolved and no underlying lung problem is present. You should call the physician if you develop persistent vomiting, high fever that does not respond to fever medication, increasing shortness of breath , confusion, or lethargy. Also, failure to improve within two to three days is an indication for re-examination. ANTIBIOTIC THERAPY: You have been given an antibiotic prescription. It's important that you take all the medication, unless instructed otherwise by your physician. Failure to complete the entire course can result in relapse of your condition. Common side effects of antibiotics include nausea, intestinal cramping, or diarrhea. Women may develop vaginal yeast infections, and babies can get yeast (thrush) in the mouth following the use of antibiotics. Contact your physician if you develop significant side effects from this medication. Allergy to this antibiotic can result in hives, wheezing, faintness, or itching. If symptoms of allergy occur, stop the medication and call the doctor. AZITHROMYCIN: Azithromycin (Zithromax) is a broad spectrum antibiotic in the same class as erythromycin. It can treat a variety of bacterial infections, but is most frequently used for respiratory infections. Azithromycin is extremely long-lasting. It accumulates in body tissues and continues to kill bacteria for many days. In order to improve absorption, Azithromycin should be taken at least one hour before or two hours after a meal. It does not have the same strong tendency to upset the stomach as erythromycin and is usually very well tolerated. Patients who have had a rash or other true allergic reactions to erythromycin should not take this medication. Call if you develop gastrointestinal distress, severe diarrhea, rash, hives, itching, or shortness of breath. Keep your appointment that you have scheduled with Dr. Bone for the , 6 days from now. FOLLOW-UP CARE: If you have been referred to a physician for follow-up care, call the physician s office for an appointment as you were instructed or within the next two days. If you experience worsening or a significant change in your symptoms, notify the physician immediately or return to the Emergency Department at any time for re-evaluation. Prescriptions: Azithromycin [Zithromax 250 mg Tablet] 250 mg PO ASDIR PRN #6 tablet PRN Reason: Prednisone [Deltasone 10 mg Tablet] 10 mg PO ASDIR PRN #21 tablet PRN Reason: Referrals: MONICO SPANGLER NP [NO LOCAL MD] - Follow up as needed
[2018-04-11 14:21] VITALS: BP 110/75
== END 2018-04-11 14:21 | disposition home or self-care (01) ==
LOC: ER 08:49
DX: J06.9 Acute upper respiratory infection, unspecified (principal); J90 Pleural effusion, not elsewhere classified
CPT/HCPCS: 93005; 99284; 96374; 96375; 36415; 82553; 82550; 84702; 85025; 85652; 81025; 86140; 80053; 81001; 84484; 83880; 71045; 71275; 93010; J2930; J1885

== ENCOUNTER 2018-10-09 13:08 | Emergency (ER) | payer MEDICAID ==
[2018-10-09] MEDS ORDERED: ASPIRIN 81 MG TABLET, CHEWABLE PO ONE (14:04)
[2018-10-09] MEDS ORDERED: NORMAL SALINE 1000 ML 250 ML IV ONE (14:06)
--- NOTE | 2018-10-09 14:08 | ER Document Report ---
ED Medical Screen (RME) - General Chief Complaint: Weakness Stated Complaint: WEAKNESS Time Seen by Provider: 10/09/18 14:01 Primary Care Provider: JASON MICHAELS MD [Primary Care Provider] - Follow up as needed Notes: 33 years old female presents today with shortness of breath and chest pain, with progressive increase in shortness of breath. She is known rheumatoid arthritis. Recently had blood work done which indicated her hemoglobin was around 6.6. On examination-tachypneic, prominent jugular vein pulsation, decreased breath sounds in the lower lung field. Bilateral ankle swelling edema as well as tenderness. Bilateral knee pain and swelling TRAVEL OUTSIDE OF THE [place] IN LAST 30 DAYS: No - Related Data Allergies/Adverse Reactions: No Known Allergies Allergy (Verified 10/09/18 13:10) Past Medical History Pulmonary Medical History: Reports: Hx Asthma Renal/ Medical History: Denies: Hx Peritoneal Dialysis GI Medical History: Reports: Hx Gastroesophageal Reflux Disease Musculoskeltal Medical History: Reports Hx Arthritis Psychiatric Medical History: Reports: Hx Depression Past Surgical History: Reports: Hx Adenoidectomy, Hx Gynecologic Surgery - D/C, Hx Tonsillectomy - tonsils and adenoids - Immunizations Immunizations up to date: No Hx Diphtheria, Pertussis, Tetanus Vaccination: No Physical Exam - Vital signs Vitals: Temp Pulse Resp BP Pulse Ox 98.3 F 83 16 120/68 100 10/09/18 13:21 10/09/18 13:21 10/09/18 13:21 10/09/18 13:21 10/09/18 13:21 Course - Vital Signs Vital signs: Temp Pulse Resp BP Pulse Ox 98.3 F 83 16 120/68 100 10/09/18 13:21 10/09/18 13:21 10/09/18 13:21 10/09/18 13:21 10/09/18 13:21 Doctor's Discharge - Discharge Referrals: JASON MICHAELS MD [Primary Care Provider] - Follow up as needed
[2018-10-09 15:29] LABS: ABSOLUTE LYMPHOCYTES (AUTO) 0.3 10^3/uL (0.5-4.7); ABSOLUTE MONOCYTES (AUTO) 0.4 10^3/uL (0.1-1.4); ABSOLUTE NEUT (AUTO) 3.5 10^3/uL (1.7-8.2); BASOPHILS % (AUTO) 0.3 % (0-2); EOSINOPHILS % (AUTO) 0.2 % (0-6); HEMATOCRIT 20.2 % (36.0-47.0); LYMPHOCYTES % (AUTO) 7.6 % (13-45); MEAN CORPUSCULAR HEMOGLOBIN 23.6 pg (27.0-33.4); MEAN CORPUSCULAR HGB CONC 33.1 g/dL (32.0-36.0); MEAN CORPUSCULAR VOLUME 71 fl (80-97); MONOCYTES % (AUTO) 8.9 % (3-13); PLATELET COUNT 372 10^3/uL (150-450); RED BLOOD COUNT 2.83 10^6/uL (3.72-5.28); RED CELL DISTRIBUTION WIDTH 19.3 % (11.5-14.0); TOTAL CELLS COUNTED % (AUTO) 100 %; WHITE BLOOD COUNT 4.2 10^3/uL (4.0-10.5)
[2018-10-09 15:35] LABS: HEMOGLOBIN 6.7 g/dL (12.0-15.5)
[2018-10-09 15:44] LABS: ALANINE AMINOTRANSFERASE 17 U/L (9-52); ALBUMIN 3.2 g/dL (3.5-5.0); ALKALINE PHOSPHATASE 207 U/L (38-126); ANION GAP 8 (5-19); ASPARTATE AMINO TRANSFERASE 31 U/L (14-36); BILIRUBIN,DIRECT 0.6 mg/dL (0.0-0.4); BILIRUBIN,TOTAL 0.8 mg/dL (0.2-1.3); BLOOD UREA NITROGEN 20 mg/dL (7-20); C-REACTIVE PROTEIN 57.3 mg/L (<10.0); CARBON DIOXIDE 22 mmol/L (22-30); CHLORIDE 106 mmol/L (98-107); CREATINE KINASE 28 U/L (30-135); GLUCOSE 93 mg/dL (75-110); POTASSIUM 5.5 mmol/L (3.6-5.0); SODIUM 136.3 mmol/L (137-145); TOTAL PROTEIN 6.9 g/dL (6.3-8.2)
--- NOTE | 2018-10-09 15:45 | ER Document Report ---
ED General - General Chief Complaint: Weakness Stated Complaint: WEAKNESS Time Seen by Provider: 10/09/18 14:01 Primary Care Provider: [facility] [Provider Group] - Follow up as needed JASON MICHAELS MD [Primary Care Provider] - Follow up as needed Notes: Patient is a 33-year-old female, that is 19 weeks gravid with twins history of iron deficiency anemia that presents to the emergency department for chief complaint of fatigue, generalized body aches, and swelling in her legs. Patient reports being seen in her [employer] office last week, was noted to have a hemoglobin of 6.7, she is a known history of iron deficiency anemia, and was prescribed iron tablets at that time, she was seen by her nuisance wildlife trapper, who recommended that she needed an infusion. Over that period of time she noticed some swelling in her legs that started on Sunday of this week, and she was concerned about this as well, she had some shortness of breath, and some chest discomfort, which has since resolved. She does have a history of lupus, and is currently taking Plaquenil for this. She currently rates her overall pain as a 3 out of 10 describes as aching all over. Past Medical History: Lupus, iron deficiency anemia Past Surgical History: Denies recent or pertinent surgical history Social History: Denies tobacco, alcohol or drug use. Family History: Reviewed and noncontributory for presenting illness Allergies: Reviewed, see documented allergy list. REVIEW OF SYSTEMS: Other than noted above, the 12 point review of systems was reviewed with the patient and were negative, all pertinent findings are included in the HPI. PHYSICAL EXAMINATION: Vital signs reviewed, nursing noted reviewed. GENERAL: Well-appearing, well-nourished and in no acute distress. HEAD: Atraumatic, normocephalic. EYES: Eyes appear normal, extraocular movements intact, sclera anicteric, conjunctiva are normal. ENT: nares patent, oropharynx clear without exudates. Moist mucous membranes. NECK: Normal range of motion, supple without lymphadenopathy LUNGS: Breath sounds clear to auscultation bilaterally and equal. No wheezes rales or rhonchi. HEART: Regular rate and rhythm without murmurs ABDOMEN: Soft, gravid, nontender, normoactive bowel sounds. No rebound, guarding, or rigidity. No masses appreciated. EXTREMITIES: Nontender, good range of motion, 1+ bilateral pitting pedal edema NEUROLOGICAL: No focal neurological deficits. Moves all extremities spontaneously Motor and sensory grossly intact on exam. PSYCH: Normal mood, normal affect. SKIN: Warm, Dry, normal turgor, no rashes or lesions noted on exposed skin TRAVEL OUTSIDE OF THE [place] IN LAST 30 DAYS: No - Related Data Allergies/Adverse Reactions: No Known Allergies Allergy (Verified 10/09/18 13:10) Past Medical History - Social History Smoking Status: Never Smoker Family History: Reviewed & Not Pertinent, Arthritis, CAD, CVA, DM, Hyperlipidemia, Hypertension, Thyroid Disfunction. denies: COPD, Malignancy Patient has suicidal ideation: No Patient has homicidal ideation: No Pulmonary Medical History: Reports: Hx Asthma Renal/ Medical History: Denies: Hx Peritoneal Dialysis GI Medical History: Reports: Hx Gastroesophageal Reflux Disease Musculoskeletal Medical History: Reports Hx Arthritis Psychiatric Medical History: Reports: Hx Depression Past Surgical History: Reports: Hx Adenoidectomy, Hx Gynecologic Surgery - D/C, Hx Tonsillectomy - tonsils and adenoids - Immunizations Immunizations up to date: No Hx Diphtheria, Pertussis, Tetanus Vaccination: No Physical Exam - Vital signs Vitals: Temp Pulse Resp BP Pulse Ox 98.3 F 83 16 120/68 100 10/09/18 13:21 10/09/18 13:21 10/09/18 13:21 10/09/18 13:21 10/09/18 13:21 Course - Re-evaluation Re-evalutation: Patient seen and examined vital signs reviewed. Laboratory data and imaging were ordered as appropriate for the patient's presenting symptoms and complaint, with consideration of any critical or life threatening conditions that may be associated with their obtained history and exam as noted above. Patient was treated with IV fluids, and an iron infusion Results were reviewed when available and demonstrated iron deficiency anemia, microcytic anemia with a hemoglobin of 6.7, which is unchanged from her blood work 1 week ago, she has a history of this in the past, just worse than prior. Blood work ordered by the triage physician included ESR and CRP which were elevated, which is expected in a patient with lupus, and that is currently . No renal insufficiency, LFTs unremarkable, she had a mild hyperkalemia, was 5.5, the patient was given fluids, no renal insufficiency, and she is on any medications that would cause prolonged or worsening hyperkalemia. I did discuss this case with the [employer] on-call Dr. Santamaria, who agreed with iron transfusion, did not recommend blood transfusion at this time. The patient was re-evaluated and was stable and improved Evaluation was most consistent with severe iron deficiency anemia, patient given iron infusion, recommended to continue her iron pills and to follow-up with [employer] of which she has an appointment next week. Patient was comfortable with discharge at this point. Results were discussed with the patient at this point, after careful consideration I feel that that patient can be discharged from the emergency department, the patient was educated treatments and reasons to return to the emergency department based on their presumed diagnosis as noted above, they were advised to followup with a primary care physician in 2-3 days. Patient was agreeable to plan of care. *Note is created using voice recognition software and may contain spelling, syntax or grammatical errors. Laboratory 10/09/18 10/09/18 10/09/18 15:00 15:00 15:00 WBC 4.2 RBC 2.83 L Hgb 6.7 L Hct 20.2 L MCV 71 L MCH 23.6 L MCHC 33.1 RDW 19.3 H Plt Count 372 Seg Neutrophils % 83.0 H Lymphocytes % 7.6 L Monocytes % 8.9 Eosinophils % 0.2 Basophils % 0.3 Absolute Neutrophils 3.5 Absolute Lymphocytes 0.3 L Absolute Monocytes 0.4 Absolute Eosinophils 0.0 Absolute Basophils 0.0 ESR > 120 H Sodium 136.3 L Potassium 5.5 H Chloride 106 Carbon Dioxide 22 Anion Gap 8 BUN 20 Creatinine 0.82 Est GFR ( Amer) > 60 Est GFR (Non-Af Amer) > 60 Glucose 93 Calcium 9.0 Total Bilirubin 0.8 Direct Bilirubin 0.6 H Neonat Total Bilirubin Not Reportable Neonat Direct Bilirubin Not Reportable Neonat Indirect Bili Not Reportable AST 31 ALT 17 Alkaline Phosphatase 207 H Creatine Kinase 28 L CK-MB (CK-2) < 0.22 Troponin I < 0.012 C-Reactive Protein 57.3 H NT-Pro-B Natriuret Pep 586 H Total Protein 6.9 Albumin 3.2 L Urine Color Urine Appearance Urine pH Ur Specific Blakeslee Urine Protein Urine Glucose (UA) Urine Ketones Urine Blood Urine Nitrite Urine Bilirubin Urine Urobilinogen Ur Leukocyte Esterase Urine WBC (Auto) Urine RBC (Auto) U Hyaline Cast (Auto) Urine Bacteria (Auto) Squamous Epi Cells Auto Urine Mucus (Auto) Urine Ascorbic Acid Blood Type Antibody Screen 10/09/18 10/09/18 15:00 17:22 WBC RBC Hgb Hct MCV MCH MCHC RDW Plt Count Seg Neutrophils % Lymphocytes % Monocytes % Eosinophils % Basophils % Absolute Neutrophils Absolute Lymphocytes Absolute Monocytes Absolute Eosinophils Absolute Basophils ESR Sodium Potassium Chloride Carbon Dioxide Anion Gap BUN Creatinine Est GFR ( Amer) Est GFR (Non-Af Amer) Glucose Calcium Total Bilirubin Direct Bilirubin Neonat Total Bilirubin Neonat Direct Bilirubin Neonat Indirect Bili AST ALT Alkaline Phosphatase Creatine Kinase CK-MB (CK-2) Troponin I C-Reactive Protein NT-Pro-B Natriuret Pep Total Protein Albumin Urine Color YELLOW Urine Appearance CLOUDY Urine pH 6.0 Ur Specific Blakeslee 1.021 Urine Protein 100 H Urine Glucose (UA) NEGATIVE Urine Ketones NEGATIVE Urine Blood NEGATIVE Urine Nitrite NEGATIVE Urine Bilirubin NEGATIVE Urine Urobilinogen 4.0 H Ur Leukocyte Esterase SMALL H Urine WBC (Auto) 9 Urine RBC (Auto) 2 U Hyaline Cast (Auto) 1 Urine Bacteria (Auto) TRACE Squamous Epi Cells Auto 9 Urine Mucus (Auto) FEW Urine Ascorbic Acid 40 H Blood Type A POSITIVE Antibody Screen NEGATIVE - Vital Signs Vital signs: Temp Pulse Resp BP Pulse Ox 98.3 F 85 21 H 113/77 100 10/09/18 13:21 10/09/18 18:32 10/09/18 18:32 10/09/18 18:01 10/09/18 18:32 - Laboratory Result Diagrams: 10/09/18 15:00 10/09/18 15:00 Laboratory results interpreted by me: 10/09/18 10/09/18 10/09/18 15:00 15:00 15:00 RBC 2.83 L Hgb 6.7 L Hct 20.2 L MCV 71 L MCH 23.6 L RDW 19.3 H Seg Neutrophils % 83.0 H Lymphocytes % 7.6 L Absolute Lymphocytes 0.3 L ESR > 120 H Sodium 136.3 L Potassium 5.5 H Direct Bilirubin 0.6 H Alkaline Phosphatase 207 H Creatine Kinase 28 L C-Reactive Protein 57.3 H NT-Pro-B Natriuret Pep 586 H Albumin 3.2 L Urine Protein Urine Urobilinogen Ur Leukocyte Esterase Urine Ascorbic Acid 10/09/18 17:22 RBC Hgb Hct MCV MCH RDW Seg Neutrophils % Lymphocytes % Absolute Lymphocytes ESR Sodium Potassium Direct Bilirubin Alkaline Phosphatase Creatine Kinase C-Reactive Protein NT-Pro-B Natriuret Pep Albumin Urine Protein 100 H Urine Urobilinogen 4.0 H Ur Leukocyte Esterase SMALL H Urine Ascorbic Acid 40 H - EKG Interpretation by Me Additional EKG results interpreted by me: EKG demonstrates sinus rhythm with a ventricular rate of 83 bpm, normal axis, normal intervals, there is baseline artifact, this is compared with prior EKG from 04/11/2018, without significant change. Discharge - Discharge Clinical Impression: Peripheral edema Iron deficiency anemia Qualifiers: Iron deficiency anemia type: unspecified iron deficiency Qualified Code(s): D50.9 - Iron deficiency anemia, unspecified Qualifiers: Weeks of gestation: unspecified Qualified Code(s): Z34.90 - Encounter for supervision of normal , unspecified, unspecified trimester Condition: Stable Disposition: HOME, SELF-CARE Instructions: Anemia, Iron Deficiency ([facility]) Additional Instructions: Please follow-up with the [employer] office, if your symptoms worsen, or do not improve, he can always return to the emergency department to be reevaluated. Continue taking the oral iron tablets that were previously prescribed Referrals: JASON MICHAELS MD [Primary Care Provider] - Follow up as needed [facility] [Provider Group] - Follow up as needed
[2018-10-09 15:56] LABS: NT PRO BNP 586 pg/mL (<125)
[2018-10-09 16:02] LABS: CREATINE KINASE MB < 0.22 ng/mL (<4.55); TROPONIN I < 0.012 ng/mL
[2018-10-09] MEDS ORDERED: FERRIC CARBOXYMALTOSE INJ 750 MG/15 ML VIAL IV ONE (17:24)
[2018-10-09 17:35] LABS: ERYTHROCYTE SEDIMENTATION RATE > 120 mm/hr (0-20)
[2018-10-09 18:29] LABS: APPEARANCE,URINE CLOUDY; BILIRUBIN,URINE NEGATIVE (NEGATIVE); GLUCOSE, URINE NEGATIVE (NEGATIVE); KETONES,URINE NEGATIVE (NEGATIVE); LEUKOCYTE ESTERASE,URINE SMALL (NEGATIVE); NITRITE,URINE NEGATIVE (NEGATIVE); PROTEIN,URINE 100 mg/dL (NEGATIVE); URINE SPECIFIC GRAVITY 1.021
[2018-10-09] MEDS ORDERED: FERRIC CARBOXYMALTOSE 750 MG in NORMAL SALINE 250 ML IV ONE (18:30)
[2018-10-09 18:31] LABS: COLOR,URINE YELLOW
[2018-10-09 18:56] VITALS: BP 113/71
--- NOTE | 2018-10-10 00:33 | EKG REPORT ---
SEVERITY:- OTHERWISE NORMAL ECG - SINUS RHYTHM ABERRANT COMPLEX, POSSIBLY SUPRAVENTRICULAR : Confirmed by: Krysta Garner MD 10-Oct-2018 00:32:16
--- NOTE | 2018-10-10 08:32 | XCELERA REPORT ---
[address] [facility] [address] Lower Extremity Venous Evaluation Procedure: Color flow and duplex imaging bilaterally of the veins of the lower extremities as well as the Common Femoral veins. Right Sided Venous Evaluation Normal vessel filling wall to wall, compression and augmentation as well as Colour flow down to the infrageniculate veins. Left Sided Venous Evaluation Normal vessel filling wall to wall, compression and augmentation as well as Colour flow down to the infrageniculate veins. Interpretation Summary No duplex evidence of DVT or obstruction in the bilateral lower extremities. Name: PAU BELTRAN Age: 33 yrs Gender: Female : 1985 Patient Status: Emergency Patient Location: ER Study Date: 10/09/2018 05:28 PM Reason For Study: bilater le edema, +preg hx lupus Ordering Physician: MARCO A RICO Performed By: Pau Le : MARCO A RICO > Lawrence Pratt
[2018-10-10] MEDS ORDERED: FERRIC CARBOXYMALTOSE INJ 750 MG/15 ML VIAL IV ONE (16:43)
== END 2018-10-09 19:06 | disposition home or self-care (01) ==
LOC: ER 13:08
DX: O99.02 Anemia complicating childbirth (principal); O26.892 Other specified pregnancy related conditions, second trimester; R53.1 Weakness; M79.10 Myalgia, unspecified site; M79.89 Other specified soft tissue disorders; Z3A.19 19 weeks gestation of pregnancy
CPT/HCPCS: 93005; 99284; 96361; 96374; 86900; 86901; 36415; 87086; 82553; 86850; 82550; 85025; 85652; 86140; 87088; 80053; 81001; 84484; 83880; 93970 ×2; 93010; J7030; J7050; J1439

== ENCOUNTER 2018-10-17 11:06 | Day surgery (SDC) | payer MEDICAID ==
--- NOTE | 2018-10-17 11:59 | ER Document Report ---
ED Medical Screen (RME) - General Chief Complaint: Shortness Of Breath Stated Complaint: SHORTNESS OF BREATH Time Seen by Provider: 10/17/18 11:57 Primary Care Provider: JASON MICHAELS MD [Primary Care Provider] - Follow up as needed Notes: Patient is a 33-year-old female that is currently with twins with a history of lupus and severe anemia that presents to the emergency department for chief complaint of shortness of breath and leg swelling. Patient was seen in the [employer] office today, she was seen in the emergency department recently, for severe iron deficiency anemia, given iron transfusion, followed up with OB today, and patient was having worse edema and feeling more short of breath over the past week so she was referred back to the emergency department to be evaluated for possible heart failure. ROS: Other than noted above, the 12 point review of systems was reviewed with the patient and were negative, all pertinent findings are included in the HPI. PHYSICAL EXAMINATION: Vital signs reviewed. GENERAL: Patient appears fatigued, but no acute distress HEAD: Atraumatic, normocephalic. EYES: Pupils equal round extraocular movements intact, conjunctiva are normal. ENT: Nares patent NECK: Normal range of motion CV: Heart regular rate and rhythm LUNGS: Increased work of breathing, lungs otherwise clear Musculoskeletal: Normal range of motion in her lower extremity edema NEUROLOGICAL: Normal speech PSYCH: Normal mood, normal affect. MDM: Patient seen and examined for rapid initial assessment. Vital signs reviewed. A comprehensive ED assessment and evaluation of the patient, analysis of test results and completion of the medical decision making process will be conducted by additional ED providers. *Note is created using voice recognition software and may contain spelling, syntax or grammatical errors. TRAVEL OUTSIDE OF THE [place] IN LAST 30 DAYS: No - Related Data Allergies/Adverse Reactions: No Known Allergies Allergy (Verified 10/09/18 13:10) Past Medical History Pulmonary Medical History: Reports: Hx Asthma Renal/ Medical History: Denies: Hx Peritoneal Dialysis GI Medical History: Reports: Hx Gastroesophageal Reflux Disease Musculoskeltal Medical History: Reports Hx Arthritis Psychiatric Medical History: Reports: Hx Depression Past Surgical History: Reports: Hx Adenoidectomy, Hx Gynecologic Surgery - D/C, Hx Tonsillectomy - tonsils and adenoids - Immunizations Immunizations up to date: No Hx Diphtheria, Pertussis, Tetanus Vaccination: No Physical Exam - Vital signs Vitals: Temp Pulse Resp BP Pulse Ox 98.0 F 89 18 127/63 H 100 10/17/18 11:31 10/17/18 11:31 10/17/18 11:31 10/17/18 11:31 10/17/18 11:31 Course - Vital Signs Vital signs: Temp Pulse Resp BP Pulse Ox 98.0 F 89 18 127/63 H 100 10/17/18 11:31 10/17/18 11:31 10/17/18 11:31 10/17/18 11:31 10/17/18 11:31 Doctor's Discharge - Discharge Referrals: JASON MICHAELS MD [Primary Care Provider] - Follow up as needed
[2018-10-17 12:46] LABS: ABSOLUTE LYMPHOCYTES (AUTO) 0.5 10^3/uL (0.5-4.7); ABSOLUTE MONOCYTES (AUTO) 0.4 10^3/uL (0.1-1.4); ABSOLUTE NEUT (AUTO) 3.5 10^3/uL (1.7-8.2); BASOPHILS % (AUTO) 0.2 % (0-2); EOSINOPHILS % (AUTO) 0.5 % (0-6); HEMATOCRIT 19.4 % (36.0-47.0); LYMPHOCYTES % (AUTO) 10.4 % (13-45); MEAN CORPUSCULAR HEMOGLOBIN 23.8 pg (27.0-33.4); MEAN CORPUSCULAR HGB CONC 32.5 g/dL (32.0-36.0); MEAN CORPUSCULAR VOLUME 73 fl (80-97); MONOCYTES % (AUTO) 9.6 % (3-13); PLATELET COUNT 361 10^3/uL (150-450); RED BLOOD COUNT 2.65 10^6/uL (3.72-5.28); RED CELL DISTRIBUTION WIDTH 19.9 % (11.5-14.0); SEGMENTED NEUTROPHILS % (AUTO) 79.3 % (42-78); TOTAL CELLS COUNTED % (AUTO) 100 %; WHITE BLOOD COUNT 4.4 10^3/uL (4.0-10.5)
[2018-10-17 12:50] LABS: HEMOGLOBIN 6.3 g/dL (12.0-15.5)
--- NOTE | 2018-10-17 12:53 | EKG REPORT ---
SEVERITY:- ABNORMAL ECG - SINUS RHYTHM NONSPECIFIC T ABNORMALITIES, ANT-LAT LEADS : Confirmed by: Lele Brown MD 17-Oct-2018 12:52:59
[2018-10-17 13:01] LABS: ALANINE AMINOTRANSFERASE 20 U/L (9-52); ALBUMIN 2.9 g/dL (3.5-5.0); ALKALINE PHOSPHATASE 259 U/L (38-126); ANION GAP 9 (5-19); ASPARTATE AMINO TRANSFERASE 27 U/L (14-36); BILIRUBIN,DIRECT 0.5 mg/dL (0.0-0.4); BILIRUBIN,TOTAL 0.7 mg/dL (0.2-1.3); BLOOD UREA NITROGEN 14 mg/dL (7-20); CALCIUM 8.8 mg/dL (8.4-10.2); CARBON DIOXIDE 20 mmol/L (22-30); CHLORIDE 106 mmol/L (98-107); GLUCOSE 90 mg/dL (75-110); POTASSIUM 4.7 mmol/L (3.6-5.0); SODIUM 135.2 mmol/L (137-145); TOTAL PROTEIN 6.3 g/dL (6.3-8.2)
--- NOTE | 2018-10-17 13:08 | RADIOLOGY REPORT (SQ) ---
EXAM DESCRIPTION: CHEST SINGLE VIEW COMPLETED DATE/TIME: 10/17/2018 12:44 pm REASON FOR STUDY: shortness of breath COMPARISON: 04/11/2018 EXAM PARAMETERS: NUMBER OF VIEWS: One view. TECHNIQUE: Single frontal radiographic view of the chest acquired. RADIATION DOSE: NA LIMITATIONS: AP portable. FINDINGS: LUNGS AND PLEURA: Airspace disease in the left lower lobe. Blunting of the costophrenic a ngle. MEDIASTINUM AND HILAR STRUCTURES: Stable. HEART AND VASCULAR STRUCTURES: Heart size upper limits normal. BONES: No acute findings. HARDWARE: None in the chest. OTHER: No other significant finding. IMPRESSION: Left lower lobe pneumonia. TECHNICAL DOCUMENTATION: JOB ID: [id number] [employer]- All Rights Reserved Reading location - IP/workstation name: [email or web address]
[2018-10-17 13:19] LABS: NT PRO BNP 970 pg/mL (<125); TROPONIN I < 0.012 ng/mL
[2018-10-17] MEDS ORDERED: PROMETHAZINE HCL INJ 25 MG/1 ML VIAL IV ONE (16:47)
[2018-10-17] MEDS ORDERED: NORMAL SALINE 250 ML IV PRN (16:59)
[2018-10-17 17:08] LABS: APPEARANCE,URINE CLOUDY; BILIRUBIN,URINE NEGATIVE (NEGATIVE); COLOR,URINE AMBER; GLUCOSE, URINE NEGATIVE (NEGATIVE); KETONES,URINE NEGATIVE (NEGATIVE); LEUKOCYTE ESTERASE,URINE TRACE (NEGATIVE); NITRITE,URINE NEGATIVE (NEGATIVE); PROTEIN,URINE 100 mg/dL (NEGATIVE); URINE SPECIFIC GRAVITY 1.015
--- NOTE | 2018-10-17 17:18 | ER Document Report ---
ED General - General Chief Complaint: Shortness Of Breath Stated Complaint: SHORTNESS OF BREATH Time Seen by Provider: 10/17/18 11:57 Primary Care Provider: JASON MICHAELS MD [Primary Care Provider] - Follow up as needed TRAVEL OUTSIDE OF THE [place] IN LAST 30 DAYS: No - HPI Notes: Patient presents to the emergency department for evaluation of difficulty breathing. She is 16 weeks with twins. She has had multiple pregnancies resulted in live births in the past. She has had increasing edema in her ankles as well as shortness of breath. She has a known anemia. She had been seen here recently and was given an iron infusion. She was sent in today by her bunk assembler for evaluation of possible heart failure. Patient states she is short of breath with exertion, at rest, and when laying flat. She denies any fevers. She has had no cough. She has had no vomiting. She does complain of urinary frequency as expected with her , but she has no dysuria or hematuria. No vaginal bleeding or discharge. - Related Data Allergies/Adverse Reactions: No Known Allergies Allergy (Verified 10/09/18 13:10) Past Medical History - General Information source: Patient - Social History Smoking Status: Never Smoker Chew tobacco use (# tins/day): No Drug Abuse: None Family History: Reviewed & Not Pertinent, Arthritis, CAD, CVA, DM, Hyper lipidemia, Hypertension, Thyroid Disfunction. denies: COPD, Malignancy Patient has suicidal ideation: No Patient has homicidal ideation: No Pulmonary Medical History: Reports: Hx Asthma Renal/ Medical History: Denies: Hx Peritoneal Dialysis GI Medical History: Reports: Hx Gastroesophageal Reflux Disease Musculoskeletal Medical History: Reports Hx Arthritis Psychiatric Medical History: Reports: Hx Depression Past Surgical History: Reports: Hx Adenoidectomy, Hx Gynecologic Surgery - D/C, Hx Tonsillectomy - tonsils and adenoids - Immunizations Immunizations up to date: No Hx Diphtheria, Pertussis, Tetanus Vaccination: No Review of Systems - Review of Systems Constitutional: Malaise EENT: No symptoms reported Cardiovascular: See HPI, Orthopnea, Edema Respiratory: See HPI Gastrointestinal: No symptoms reported Female Genitourinary: No symptoms reported, -: Yes All other systems reviewed and negative Physical Exam - Vital signs Vitals: Temp Pulse Resp BP Pulse Ox 98.0 F 89 18 127/63 H 100 10/17/18 11:31 10/17/18 11:31 10/17/18 11:31 10/17/18 11:31 10/17/18 11:31 Notes: Mildly tachypneic on initial exam - Notes Notes: Vital signs reviewed, please refer to chart. Patient is normocephalic, atraumatic. Pupils equal round, reactive to light. Neck is supple without meningismus. Heart is regular rate and rhythm. Lungs are clear to auscultation bilaterally, but patient is mildly tachypneic.. Abdomen is gravid with uterine fundus palpable just below the umbilicus. Nontender. Extremities without cyanosis, clubbing. 2+ edema of the ankles noted. Calves are nontender. Peripheral pulses are equal. Skin is warm and dry. Patient is awake, alert, neurological exam is nonfocal. Course - Re-evaluation Re-evalutation: 10/17/18 17:16 Patient presents emergency department for evaluation of dyspnea. She had a known anemia, it is worsened. She is evidently feeling iron infusions. She is still visibly short of breath. Chest x-ray was interpreted by radiology as showing a left lower lobe pneumonia. This is not compatible with her presentation. I believe this was just limited secondary to her body habitus and being a portable film. Again she has no leukocytosis, no cough. I am concerned that this patient continues to be symptomatic despite resting here in the emergency department for some time. Given the degree of her anemia, I do believe admission and transfusion is warranted. I spoke with Dr. Gomez at 1700, who will admit her for further care. - Vital Signs Vital signs: Temp Pulse Resp BP Pulse Ox 98.0 F 89 37 H 105/70 100 10/17/18 11:31 10/17/18 11:31 10/17/18 16:12 10/17/18 16:12 10/17/18 15:01 - Laboratory Result Diagrams: 10/17/18 12:20 10/17/18 12:20 Laboratory results interpreted by me: 10/17/18 10/17/18 10/17/18 12:20 12:20 12:20 RBC 2.65 L Hgb 6.3 L Hct 19.4 L MCV 73 L MCH 23.8 L RDW 19.9 H Seg Neutrophils % 79.3 H Lymphocytes % 10.4 L Sodium 135.2 L Carbon Dioxide 20 L Direct Bilirubin 0.5 H Alkaline Phosphatase 259 H NT-Pro-B Natriuret Pep 970 H Albumin 2.9 L Urine Protein Urine Urobilinogen Ur Leukocyte Esterase Crossmatch 10/17/18 10/17/18 12:20 16:10 RBC Hgb Hct MCV MCH RDW Seg Neutrophils % Lymphocytes % Sodium Carbon Dioxide Direct Bilirubin Alkaline Phosphatase NT-Pro-B Natriuret Pep Albumin Urine Protein 100 H Urine Urobilinogen 2.0 H Ur Leukocyte Esterase TRACE H Crossmatch See Detail Discharge - Discharge Clinical Impression: Anemia, Dyspnea Condition: Stable Disposition: ADMITTED INPATIENT Admitting Provider: [facility] - Dr. Gomez Unit Admitted: Telemetry Referrals: JASON MICHAELS MD [Primary Care Provider] - Follow up as needed
--- NOTE | 2018-10-17 19:06 | XCELERA REPORT ---
[address] [address] Transthoracic Echocardiogram Report Name: SON BELTRAN Age: 33 yrs Gender: Female : 1985 Patient Status: Emergency Patient Location: ER Study Date: 10/17/2018 02:31 PM Height: 65 in Weight: 171 lb BSA: 1.9 m2 Reason For Study: shortness of breath, edema, Ordering Physician: MARCO A RICO Performed By: Vida Munguia Interpretation Summary Moderate MR with no LA enlargement, no MVP or MS Normal 3 cusps AV with trace AR, no . Normal LVEF, no LV diastolic dysfunction. Hypokinetic IVS mild. No LV enlargement. TR moderate, RVSP <40mm Hg, mild pulm hypertension. normal RV and RA size. Small pericardial effusion, no evidence of tamponade. MMode/2D Measurements & Calculations RVDd: 2.7 cm LVIDd: 4.8 cm FS: 38.8 % Ao root diam: IVSd: 0.77 cm LVIDs: 3.0 cm EDV(Teich): 2.6 cm LVPWd: 0.84 cm 109.2 ml Ao root area: ESV(Teich): 33.8 ml 5.3 cm2 LA dimension: EF(Teich): 69.1 % 3.5 cm LVLd ap4: 8.7 cm SV(MOD-sp4): EDV(MOD-sp4): 97.0 ml 126.0 ml LVLs ap4: 6.9 cm ESV(MOD-sp4): 29.0 ml EF(MOD-sp4): 77.0 % Doppler Measurements & Calculations MV E max radha: MV P1/2t max radha: Ao V2 max: LV V1 max P.2 cm/sec 197.4 cm/sec 173.7 cm/sec 5.8 mmHg MV A max radha: MV P1/2t: 64.8 msec Ao max PG: LV V1 max: 114.8 cm/sec MVA(P1/2t): 3.4 cm2 12.1 mmHg 120.9 cm/sec MV E/A: 2.0 MV dec slope: 892.1 cm/sec2 MV dec time: 0.19 sec PA V2 max: PI end-d radha: TR max radha: MV P1/2t-pr_phl: 83.9 cm/sec 130.3 cm/sec 278.3 cm/sec 65.3 msec PA max P.8 mmHg TR max P.0 mmHg Left Ventricle The left ventricle is grossly normal size. There is normal left ventricular wall thickness. The left ventricular ejection fraction is normal. LV EF is 70- 75%. Doppler measurements suggest normal left ventricular diastolic function. There is septal wall mild hypokinesis. There is no thrombus. Right Ventricle The right ventricle is grossly normal size. The right ventricular systolic function is normal. Atria The right atrium is normal. The left atrial size is normal. The interatrial septum is intact with no evidence for an atrial septal defect. Mitral Valve The mitral valve is normal in structure and function. There is no mitral annular calcification. There is no evidence of mitral valve prolapse. There is no mitral valve stenosis. There is a moderate amount of mitral regurgitation. Aortic Valve The aortic valve is trileaflet. The aortic valve opens well. There is no aortic valvular vegetation. There is no aortic valve stenosis. There is a trace amount of aortic regurgitation. Tricuspid Valve The tricuspid is normal in structure and function. There is no tricuspid valve prolapse. There is no tricuspid stenosis. There is a moderate amount of tricuspid regurgitation. There is mild to moderate pulmonary hypertension by echo. Best estimated RVSP is approximately 39 mm/Hg. Pulmonic Valve The pulmonic valve is not well visualized. There is a trace or physiologic amount of pulmonic regurgitation. Great Vessels The aortic root is normal size. Effusions Small pericardial effusion. I WMSI = 1.31 % Normal = 69 Segments Size X - Cannot 2 - 4 - 1-2 small Interpret 1 - Normal Hypokinetic 3 - AkineticDyskinetic 3-5 moderate 5 - 6-14 large Aneurysmal 15-16 diffuse : MARCO A RICO > Lele Brown
--- NOTE | 2018-10-18 06:19 | PDOC H&P ---
History of Present Illness Admission Date/PCP: 10/17/18 17:25 JASON MICHAELS MD Patient complains of: SOB History of Present Illness: SON BELTRAN is a 33 year old female approximately 15 weeks with TWINS admitted for blood transfusion for SOB and anemia. PT seen in ER with possible CHF but ruled out in ER. Also ruled out pneumonia. pt admitted for blood t ransfusion Past Medical History Cardiac Medical History: Reports: Congestive Heart Failure Pulmonary Medical History: Reports: Asthma GI Medical History: Reports: Gastroesophageal Reflux Disease Musculoskeltal Medical History: Reports: Arthritis Psychiatric Medical History: Reports: Depression Past Surgical History Past Surgical History: Reports: Adenoidectomy, Tonsillectomy - tonsils and adenoids Social History Smoking Status: Unknown if Ever Smoked Drugs: None - Advance Directive Resuscitation Status: Full Code Family History Family History: Reviewed & Not Pertinent, Arthritis, CAD, CVA, DM, Hyperlipidemia, Hypertension, Thyroid Disfunction. denies: COPD, Malignancy Parental Family History Reviewed: No Children Family History Reviewed: No Sibling(s) Family History Reviewed.: No Medication/Allergy Home Medications: Hydroxychloroquine Sulfate [Plaquenil 200 mg Tablet] 200 mg PO BID 10/17/18 Methimazole [Tapazole 5 mg Tablet] 5 mg PO TID 10/17/18 Naproxen [Naprosyn] 500 mg PO Q12HP PRN 10/17/18 Allergies/Adverse Reactions: No Known Allergies Allergy (Verified 10/17/18 20:43) Physical Exam - Physical Exam Vital Signs: Temp Pulse Resp BP Pulse Ox 97.9 F 84 18 112/59 L 99 10/18/18 03:18 10/18/18 03:18 10/18/18 03:18 10/18/18 03:18 10/18/18 03:18 Intake & Output 10/16/18 10/17/18 10/18/18 06:59 06:59 06:59 Intake Total 600 Balance 600 Weight 77.6 kg General appearance: PRESENT: no acute distress Result Laboratory Results: 10/17/18 12:20 10/17/18 12:20 10/17/18 10/17/18 10/17/18 12:20 12:20 12:20 WBC 4.4 RBC 2.65 L Hgb 6.3 L Hct 19.4 L MCV 73 L MCH 23.8 L MCHC 32.5 RDW 19.9 H Plt Count 361 Seg Neutrophils % 79.3 H Lymphocytes % 10.4 L Monocytes % 9.6 Eosinophils % 0.5 Basophils % 0.2 Absolute Neutrophils 3.5 Absolute Lymphocytes 0.5 Absolute Monocytes 0.4 Absolute Eosinophils 0.0 Absolute Basophils 0.0 Sodium 135.2 L Potassium 4.7 Chloride 106 Carbon Dioxide 20 L Anion Gap 9 BUN 14 Creatinine 0.90 Est GFR ( Amer) > 60 Est GFR (Non-Af Amer) > 60 Glucose 90 Calcium 8.8 Total Bilirubin 0.7 AST 27 ALT 20 Alkaline Phosphatase 259 H Total Protein 6.3 Albumin 2.9 L Urine Color Urine Appearance Urine pH Ur Specific [place] Urine Protein Urine Glucose (UA) Urine Ketones Urine Blood Urine Nitrite Ur Leukocyte Esterase Urine WBC (Auto) Urine RBC (Auto) Blood Type A POSITIVE Antibody Screen NEGATIVE 10/17/18 16:10 WBC RBC Hgb Hct MCV MCH MCHC RDW Plt Count Seg Neutrophils % Lymphocytes % Monocytes % Eosinophils % Basophils % Absolute Neutrophils Absolute Lymphocytes Absolute Monocytes Absolute Eosinophils Absolute Basophils Sodium Potassium Chloride Carbon Dioxide Anion Gap BUN Creatinine Est GFR ( Amer) Est GFR (Non-Af Amer) Glucose Calcium Total Bilirubin AST ALT Alkaline Phosphatase Total Protein Albumin Urine Color [place]IM[place] Urine Appearance CLOUDY Urine pH 6.0 Ur Specific [place] 1.015 Urine Protein 100 H Urine Glucose (UA) NEGATIVE Urine Ketones NEGATIVE Urine Blood NEGATIVE Urine Nitrite NEGATIVE Ur Leukocyte Esterase TRACE H Urine WBC (Auto) 10 Urine RBC (Auto) 2 Blood Type Antibody Screen 10/17/18 10/17/18 12:20 15:46 Troponin I < 0.012 < 0.012 NT-Pro-B Natriuret Pep 970 H Impressions: Chest X-Ray 10/17/18 12:04 IMPRESSION: Left lower lobe pneumonia. Assessment & Plan - Diagnosis (1) Anemia Qualifiers: Anemia type: iron deficiency Iron deficiency anemia type: chronic blood loss Qualified Code(s): D50.0 - Iron deficiency anemia secondary to blood loss (chronic) Is this a current diagnosis for this admission?: Yes (2) Dyspnea Qualifiers: Dyspnea type: dyspnea on exertion Qualified Code(s): R06.09 - Other forms of dyspnea Is this a current diagnosis for this admission?: Yes - Plan Summary Plan Summary: transfuse and re-evaluate
[2018-10-18 08:10] LABS: ABSOLUTE LYMPHOCYTES (AUTO) 0.4 10^3/uL (0.5-4.7); ABSOLUTE MONOCYTES (AUTO) 0.4 10^3/uL (0.1-1.4); ABSOLUTE NEUT (AUTO) 3.6 10^3/uL (1.7-8.2); BASOPHILS % (AUTO) 0.2 % (0-2); EOSINOPHILS % (AUTO) 0.6 % (0-6); HEMATOCRIT 21.7 % (36.0-47.0); HEMOGLOBIN 7.1 g/dL (12.0-15.5); LYMPHOCYTES % (AUTO) 8.9 % (13-45); MEAN CORPUSCULAR HEMOGLOBIN 24.6 pg (27.0-33.4); MEAN CORPUSCULAR HGB CONC 32.8 g/dL (32.0-36.0); MEAN CORPUSCULAR VOLUME 75 fl (80-97); PLATELET COUNT 318 10^3/uL (150-450); RED BLOOD COUNT 2.89 10^6/uL (3.72-5.28); RED CELL DISTRIBUTION WIDTH 20.6 % (11.5-14.0); SEGMENTED NEUTROPHILS % (AUTO) 81.3 % (42-78); TOTAL CELLS COUNTED % (AUTO) 100 %; WHITE BLOOD COUNT 4.4 10^3/uL (4.0-10.5)
--- NOTE | 2018-10-18 12:34 | PDOC PROGRESS REPORT ---
Subjective Progress Note for:: 10/18/18 Subjective:: indicates she is feeling better than yesterday. has had 2 units of PRBC's. Reason For Visit: ANEMIA Physical Exam - Physical Exam Vital Signs: Temp Pulse Resp BP Pulse Ox 97.9 F 84 18 112/59 L 99 10/18/18 07:27 10/18/18 07:27 10/18/18 07:27 10/18/18 07:27 10/18/18 07:27 Intake & Output 10/17/18 10/18/18 10/19/18 06:59 06:59 06:59 Intake Total 600 Balance 600 Weight 77.6 kg General appearance: PRESENT: no acute distress, cooperative - Obstetrical Exam Fundal Height: 1/u - 2/u Result Laboratory Results: 10/18/18 06:46 10/17/18 12:20 10/17/18 10/17/18 10/17/18 12:20 12:20 12:20 WBC 4.4 RBC 2.65 L Hgb 6.3 L Hct 19.4 L MCV 73 L MCH 23.8 L MCHC 32.5 RDW 19.9 H Plt Count 361 Seg Neutrophils % 79.3 H Lymphocytes % 10.4 L Monocytes % 9.6 Eosinophils % 0.5 Basophils % 0.2 Absolute Neutrophils 3.5 Absolute Lymphocytes 0.5 Absolute Monocytes 0.4 Absolute Eosinophils 0.0 Absolute Basophils 0.0 Sodium 135.2 L Potassium 4.7 Chloride 106 Carbon Dioxide 20 L Anion Gap 9 BUN 14 Creatinine 0.90 Est GFR ( Amer) > 60 Est GFR (Non-Af Amer) > 60 Glucose 90 Calcium 8.8 Total Bilirubin 0.7 AST 27 ALT 20 Alkaline Phosphatase 259 H Total Protein 6.3 Albumin 2.9 L Urine Color Urine Appearance Urine pH Ur Specific [place] Urine Protein Urine Glucose (UA) Urine Ketones Urine Blood Urine Nitrite Ur Leukocyte Esterase Urine WBC (Auto) Urine RBC (Auto) Blood Type A POSITIVE Antibody Screen NEGATIVE 10/17/18 10/18/18 16:10 06:46 WBC 4.4 RBC 2.89 L Hgb 7.1 L Hct 21.7 L MCV 75 L MCH 24.6 L MCHC 32.8 RDW 20.6 H Plt Count 318 Seg Neutrophils % 81.3 H Lymphocytes % 8.9 L Monocytes % 9.0 Eosinophils % 0.6 Basophils % 0.2 Absolute Neutrophils 3.6 Absolute Lymphocytes 0.4 L Absolute Monocytes 0.4 Absolute Eosinophils 0.0 Absolute Basophils 0.0 Sodium Potassium Chloride Carbon Dioxide Anion Gap BUN Creatinine Est GFR ( Amer) Est GFR (Non-Af Amer) Glucose Calcium Total Bilirubin AST ALT Alkaline Phosphatase Total Protein Albumin Urine Color [place]IMBERLEY Urine Appearance CLOUDY Urine pH 6.0 Ur Specific [place] 1.015 Urine Protein 100 H Urine Glucose (UA) NEGATIVE Urine Ketones NEGATIVE Urine Blood NEGATIVE Urine Nitrite NEGATIVE Ur Leukocyte Esterase TRACE H Urine WBC (Auto) 10 Urine RBC (Auto) 2 Blood Type Antibody Screen 10/17/18 10/17/18 12:20 15:46 Troponin I < 0.012 < 0.012 NT-Pro-B Natriuret Pep 970 H Impressions: Chest X-Ray 10/17/18 12:04 IMPRESSION: Left lower lobe pneumonia. Assessment & Plan - Diagnosis (1) Anemia Qualifiers: Anemia type: iron deficiency Iron deficiency anemia type: chronic blood loss Qualified Code(s): D50.0 - Iron deficiency anemia secondary to blood loss (chronic) Is this a current diagnosis for this admission?: Yes (2) Dyspnea Qualifiers: Dyspnea type: dyspnea on exertion Qualified Code(s): R06.09 - Other forms of dyspnea Is this a current diagnosis for this admission?: Yes (4) , twin, antepartum Qualifiers: Multiple gestation type: unspecified Qualified Code(s): O30.009 - Twin , unspecified number of placenta and unspecified number of amniotic sacs, unspecified trimester Is this a current diagnosis for this admission?: Yes - Time Time Spent with patient: Less than 15 minutes Medications reviewed and adjusted accordingly: Yes Anticipated discharge: Home Within: within 24 hours - I reviewed chart and in light of the Beta Yulissa Peptide elevation and anemia, will consult the hospitalist and hematalogy before commiting to discharge home.
[2018-10-18 13:01] LABS: ABSOLUTE RETICS # 0.052 10^6/uL (0.028-0.122); RETICULOCYTE COUNT (AUTO) 1.84 % (0.66-2.85)
--- NOTE | 2018-10-18 15:49 | PDOC CONSULTATION ---
Consultation Consult Date: 10/18/18 Attending physician:: Andrea Consult reason:: Elevated BNP History of Present Illness Admission Date/PCP: 10/17/18 17:25 JASON MICHAELS MD Patient complains of: Shortness of breath History of Present Illness: SON BELTRAN is a 33 year old female with history of lupus and Plaquenil, history of twin 5 years ago came to the emergency room with increasing shortness of breath found to have severe anemia with a hemoglobin of 6.3. Medical consult was called for elevated BNP. Patient received 2 units of blood transfusion so far and hemoglobin now is 7.1. Patient is still complaining of shortness of breath. But pulse ox is 100% on room air. Complaining of palpitations. Denies any chest pains. Complaining of slight swelling of the legs. No fever noticed since admission. Denies any cough cold symptoms. Admission chest x-ray read by the radiologist as left lower lobe pneumonia but patient does not have any fever does not have any WBC count. Slightly elevated left shift neutrophils. Denies any previous history of congestive heart failure. No family history of heart failure. Past Medical History Pulmonary Medical History: Reports: Asthma GI Medical History: Reports: Gastroesophageal Reflux Disease Musculoskeltal Medical History: Reports: Arthritis Psychiatric Medical History: Reports: Depression Hematology: Reports: Anemia, Other - lupus Past Surgical History Past Surgical History: Reports: Adenoidectomy, Tonsillectomy - tonsils and adenoids Social History Smoking Status: Unknown if Ever Smoked Drugs: None - Advance Directive Resuscitation Status: Full Code Family History Family History: Reviewed & Not Pertinent, Arthritis, CAD, CVA, DM, Hyperlipidemia, Hypertension, Thyroid Disfunction. denies: COPD, Malignancy Parental Family History Reviewed: Yes Children Family History Reviewed: Yes Sibling(s) Family History Reviewed.: Yes Medication/Allergy Home Medications: Hydroxychloroquine Sulfate [Plaquenil 200 mg Tablet] 200 mg PO BID 10/17/18 Methimazole [Tapazole 5 mg Tablet] 5 mg PO TID 10/17/18 Naproxen [Naprosyn] 500 mg PO Q12HP PRN 10/17/18 Allergies/Adverse Reactions: No Known Allergies Allergy (Verified 10/17/18 20:43) Review of Systems Constitutional: PRESENT: fatigue, weakness. ABSENT: fever(s), headache(s) Eyes: ABSENT: visual disturbances Ears: ABSENT: hearing changes Nose, Mouth, and Throat: ABSENT: sore throat Cardiovascular: PRESENT: dyspnea on exertion, palpitations Respiratory: PRESENT: dyspnea. ABSENT: cough, hemoptysis, sputum Gastrointestinal: ABSENT: abdominal pain, bloating, diarrhea, nausea, vomiting Genitourinary: ABSENT: dysuria, hematuria Neurological: ABSENT: abnormal gait, abnormal speech, confusion, dizziness, focal weakness, syncope Psychiatric: PRESENT: anxiety Physical Exam Vital Signs: Temp Pulse Resp BP Pulse Ox 98.2 F 77 16 121/67 100 10/18/18 11:37 10/18/18 11:37 10/18/18 11:37 10/18/18 11:37 10/18/18 11:37 Intake & Output 10/17/18 10/18/18 10/19/18 06:59 06:59 06:59 Intake Total 600 Balance 600 Weight 77.6 kg General appearance: PRESENT: mild distress Head exam: PRESENT: atraumatic Eye exam: PRESENT: PERRLA Mouth exam: PRESENT: moist, tongue midline Neck exam: ABSENT: carotid bruit, JVD, lymphadenopathy, thyromegaly Respiratory exam: PRESENT: decreased breath sounds. ABSENT: crackles, rhonchi, wheezes Cardiovascular exam: PRESENT: systolic murmur, tachycardia GI/Abdominal exam: PRESENT: normal bowel sounds, soft. ABSENT: distended, guarding, mass, organolmegaly, rebound, tenderness Extremities exam: PRESENT: +1 edema Neurological exam: PRESENT: alert, awake, oriented to person, oriented to place, oriented to time, oriented to situation, CN II-XII grossly intact. ABSENT: motor sensory deficit Psychiatric exam: PRESENT: anxious Results Laboratory Results: 10/18/18 06:46 10/17/18 12:20 10/17/18 10/17/18 10/18/18 12:20 16:10 06:46 WBC 4.4 RBC 2.89 L Hgb 7.1 L Hct 21.7 L MCV 75 L MCH 24.6 L MCHC 32.8 RDW 20.6 H Plt Count 318 Seg Neutrophils % 81.3 H Lymphocytes % 8.9 L Monocytes % 9.0 Eosinophils % 0.6 Basophils % 0.2 Absolute Neutrophils 3.6 Absolute Lymphocytes 0.4 L Absolute Monocytes 0.4 Absolute Eosinophils 0.0 Absolute Basophils 0.0 Retic Count (auto) Absolute Retic Iron TIBC % Saturation Ferritin Vitamin B12 Folate Urine Color [place] Urine Appearance CLOUDY Urine pH 6.0 Ur Specific [place] 1.015 Urine Protein 100 H Urine Glucose (UA) NEGATIVE Urine Ketones NEGATIVE Urine Blood NEGATIVE Urine Nitrite NEGATIVE Ur Leukocyte Esterase TRACE H Urine WBC (Auto) 10 Urine RBC (Auto) 2 Blood Type A POSITIVE Antibody Screen NEGATIVE 10/18/18 10/18/18 06:46 06:46 WBC RBC Hgb Hct MCV MCH MCHC RDW Plt Count Seg Neutrophils % Lymphocytes % Monocytes % Eosinophils % Basophils % Absolute Neutrophils Absolute Lymphocytes Absolute Monocytes Absolute Eosinophils Absolute Basophils Retic Count (auto) 1.84 Absolute Retic 0.052 Iron 41.0 TIBC 260 % Saturation 16 Ferritin 760.00 H Vitamin B12 275.0 Folate 15.50 Urine Color Urine Appearance Urine pH Ur Specific [place] Urine Protein Urine Glucose (UA) Urine Ketones Urine Blood Urine Nitrite Ur Leukocyte Esterase Urine WBC (Auto) Urine RBC (Auto) Blood Type Antibody Screen 10/17/18 10/17/18 12:20 15:46 Troponin I < 0.012 < 0.012 NT-Pro-B Natriuret Pep 970 H Impressions: Chest X-Ray 10/17/18 12:04 IMPRESSION: Left lower lobe pneumonia. Assessment & Plan - Diagnosis (1) Elevated brain natriuretic peptide (BNP) level Is this a current diagnosis for this admission?: Yes Plan: 10/18/2018-medical consult was called for elevated BNP of 970. Patient's BNP was 1330 on 04/11/2018. So patient has underlying elevated BNP. Echocardiogram was done EF is 70-75% with moderate mitral regurgitation. On physical examination systolic murmur is present. Echocardiogram did not suggest any evidence of congestive heart failure. Elevated BNP may be secondary to chronic anemia causing increased stress on the heart, with twins. Patient is also has history of lupus it may be causing occult heart disease. Cardiac enzymes are negative ruling out any ischemia. Recommendation is cardiology consult with Dr. Brown. Repeat BNP tomorrow. Oxygen 2 L nasal cannula. (2) Dyspnea Qualifiers: Dyspnea type: dyspnea on exertion Qualified Code(s): R06.09 - Other forms of dyspnea Is this a current diagnosis for this admission?: Yes Plan: 10/18/2018-patient admitted with shortness of breath. Status post 2 units of blood transfusion. Still complaining of shortness of breath. Shortness of breath may be multifactorial 1 is severe anemia, with elevated BNP there is high possibility of congestive heart failure. Shortness of breath may be secondary to twin . Chest x-ray interpreted by radiologist as left lower lobe pneumonia but the patient does not have any clinical symptoms like fever or elevated WBC. (3) Anemia Qualifiers: Anemia type: iron deficiency Iron deficiency anemia type: chronic blood loss Qualified Code(s): D50.0 - Iron deficiency anemia secondary to blood loss (chronic) Is this a current diagnosis for this admission?: Yes Plan: 10/18/2018-anemia of chronic disease most likely secondary to lupus. Hematology input is appreciated. In My of pain in she may need more blood transfusions. Iron saturation is 16 patient may need IV iron. Patient denies any craving for ice or Michael/sand (4) Lupus Is this a current diagnosis for this admission?: Yes Plan: 10/18/2018-patient has history of lupus on Plaquenil at home. I deferred the Plaquenil treatment to RUG SETTER AXMINSTER. - Time Time Spent: 50 to 70 Minutes Medications reviewed and adjusted accordingly: Yes Anticipated discharge: Home
--- NOTE | 2018-10-18 18:22 | PDOC CONSULTATION ---
Consultation Consult Date: 10/18/18 Consult reason:: Hematology/Oncology consultation was requested for patient with anemia and Lupus during . History of Present Illness Admission Date/PCP: 10/17/18 17:25 JASON MICHAELS MD History of Present Illness: SON BELTRAN is a 33 year old female who was diagnosed with Lupus as a teenager. She states that prior to her diagnosis, she had no evidence of anemia. However, at age 18, after her diagnosis of Lupus, she was told that she had anemia. She denies having been seen by hematology. She states that Dr. Jennings started her on iron tabs 15 years ago and she has remained on them since that time. From October to Mar 2018, she had been very ill. She has had dyspnea, heart palpitations, puffy eyes, and ankle swelling. Treatments have not helped. She has been on Plaquinil for her Lupus since age 17. She was last on steroids a few months ago. She had been on MTX and Cellcept in the past, but none recently. She is currently for the 5th time. Currently with twins. Her due date if 04/03/2019. She denies any problems with this . On admi alicia, her HGB was 6.3. She was given 2 units pRBCs and HGB improved to 7.1. No evidence of bleeding. ECHO was performed and found to have moderate mitral regurgitation with LVEF 70-75%. Past Medical History Cardiac Medical History: Reports: Congestive Heart Failure Pulmonary Medical History: Reports: Asthma EENT Medical History: Reports: Other - lupus GI Medical History: Reports: Gastroesophageal Reflux Disease Musculoskeltal Medical History: Reports: Arthritis Psychiatric Medical History: Reports: Depression Hematology: Reports: Anemia, Other - lupus Past Surgical History Past Surgical History: Reports: Adenoidectomy, Tonsillectomy - tonsils and adenoids Social History Information Source: Patient Lives with: Family Smoking Status: Unknown if Ever Smoked Drugs: None - Advance Directive Resuscitation Status: Full Code Family History Family History: Arthritis, CAD, CVA, DM, Hyperlipidemia, Hypertension, Thyroid Disfunction. denies: COPD, Malignancy Family History: Sister and cousin with Lupus. PGP with scleroderma. Parental Family History Reviewed: Yes - Mother living with DM. Father living and healthy Children Family History Reviewed: No Sibling(s) Family History Reviewed.: Yes Medication/Allergy Home Medications: Hydroxychloroquine Sulfate [Plaquenil 200 mg Tablet] 200 mg PO BID 10/17/18 Methimazole [Tapazole 5 mg Tablet] 5 mg PO TID 10/17/18 Naproxen [Naprosyn] 500 mg PO Q12HP PRN 10/17/18 Allergies/Adverse Reactions: No Known Allergies Allergy (Verified 10/17/18 20:43) Review of Systems Constitutional: ABSENT: fever(s), headache(s) Eyes: ABSENT: visual disturbances Ears: ABSENT: hearing changes Nose, Mouth, and Throat: ABSENT: sore throat Cardiovascular: PRESENT: chest pain, dyspnea on exertion, palpitations Respiratory: ABSENT: cough Gastrointestinal: ABSENT: heartburn, vomiting Genitourinary: ABSENT: dysuria Integumentary: ABSENT: pruritus Neurological: ABSENT: weakness Endocrine: ABSENT: menstrual abnormalities Hematologic/Lymphatic: ABSENT: easy bleeding Physical Exam Vital Signs: Temp Pulse Resp BP Pulse Ox 98.2 F 77 16 121/67 100 10/18/18 11:37 10/18/18 11:37 10/18/18 11:37 10/18/18 11:37 10/18/18 11:37 Intake & Output 10/17/18 10/18/18 10/19/18 06:59 06:59 06:59 Intake Total 600 Balance 600 Weight 77.6 kg General appearance: PRESENT: thin Exam: 33 year old female. Head exam: PRESENT: atraumatic, normocephalic Eye exam: PRESENT: EOMI, PERRLA Ear exam: PRESENT: normal external ear exam Mouth exam: PRESENT: tongue midline Neck exam: ABSENT: lymphadenopathy, tenderness Respiratory exam: PRESENT: clear to auscultation trevor, unlabored Cardiovascular exam: PRESENT: gallop, RRR, systolic murmur GI/Abdominal exam: PRESENT: soft, other - Gravid uterus. ABSENT: tenderness Extremities exam: ABSENT: pedal edema Neurological exam: PRESENT: alert, awake Psychiatric exam: PRESENT: appropriate affect Skin exam: PRESENT: pallor Results Laboratory Results: 10/18/18 06:46 10/17/18 12:20 10/17/18 10/18/18 10/18/18 12:20 06:46 06:46 WBC 4.4 RBC 2.89 L Hgb 7.1 L Hct 21.7 L MCV 75 L MCH 24.6 L MCHC 32.8 RDW 20.6 H Plt Count 318 Seg Neutrophils % 81.3 H Lymphocytes % 8.9 L Monocytes % 9.0 Eosinophils % 0.6 Basophils % 0.2 Absolute Neutrophils 3.6 Absolute Lymphocytes 0.4 L Absolute Monocytes 0.4 Absolute Eosinophils 0.0 Absolute Basophils 0.0 Retic Count (auto) 1.84 Absolute Retic 0.052 Iron TIBC % Saturation Ferritin Vitamin B12 Folate Blood Type A POSITIVE Antibody Screen NEGATIVE 10/18/18 06:46 WBC RBC Hgb Hct MCV MCH MCHC RDW Plt Count Seg Neutrophils % Lymphocytes % Monocytes % Eosinophils % Basophils % Absolute Neutrophils Absolute Lymphocytes Absolute Monocytes Absolute Eosinophils Absolute Basophils Retic Count (auto) Absolute Retic Iron 41.0 TIBC 260 % Saturation 16 Ferritin 760.00 H Vitamin B12 275.0 Folate 15.50 Blood Type Antibody Screen 10/17/18 10/17/18 12:20 15:46 Troponin I < 0.012 < 0.012 NT-Pro-B Natriuret Pep 970 H Impressions: Chest X-Ray 10/17/18 12:04 IMPRESSION: Left lower lobe pneumonia. Status: Image reviewed by me Assessment & Plan - Diagnosis (1) Anemia Qualifiers: Anemia type: unspecified type Qualified Code(s): D64.9 - Anemia, unspecified Is this a current diagnosis for this admission?: Yes Plan: Her iron studies, B12, Folate are all normal. Her ferritin is actually quite high. This could be an acute phase reactant but also may be from excess exogenous oral iron. I would stop the PO iron NOW if not already done. I will check LDH, ESR now. Her ESR on 10/09 was >120. If LDH is elevated, then consider steroids and further work-up for hemolytic anemia. If normal, will continue blood transfusion. (2) , twin, antepartum Qualifiers: Multiple gestation type: unspecified Qualified Code(s): O30.009 - Twin , unspecified number of placenta and unspecified number of amniotic sacs, unspecified trimester Is this a current diagnosis for this admission?: Yes Plan: As per DIRECTOR TREASURER - Plan Summary Plan Summary: Her heart sounds are markedly abnormal, but I am unsure if this is at baseline or not. She has had ECHO and cardiology is following. I will continue to follow with you. Please call with concerns.
--- NOTE | 2018-10-19 07:33 | PDOC DISCHARGE SUMMARY ---
General - Admit/Disc Date/PCP Admission Date/Primary Care Provider: 10/17/18 17:25 JASON MICHAELS MD Discharge Date: 10/19/18 - Discharge Diagnosis (1) Anemia Is this a current diagnosis for this admission?: Yes (2) Dyspnea Is this a current diagnosis for this admission?: Yes (3) Lupus Is this a current diagnosis for this admission?: Yes (4) , twin, antepartum Is this a current diagnosis for this admission?: Yes - Additional Information Resuscitation Status: Full Code Discharge Diet: Regular Discharge Activity: Activity As Tolerated, Balance Activity w/Rest, Energy Conservation, No Lifting Over 10 Pounds, No Lifting/Push/Pulling, Slowly Increase Activity Home Medications: Hydroxychloroquine Sulfate [Plaquenil 200 mg Tablet] 200 mg PO BID 10/17/18 Methimazole [Tapazole 5 mg Tablet] 5 mg PO TID 10/17/18 Naproxen [Naprosyn] 500 mg PO Q12HP PRN 10/17/18 History of Present Illness History of Present Illness: SON BELTRAN is a 33 year old female Hospital Course Hospital Course: has had an increase with the blood transfusion. Am checking a repeat CBC this AM per Hematology recs and Dr. Gallagher agrees that if hgb is stable patient may discharge home with outpatient follow up. Physical Exam - Physical Exam Vital Signs: Temp Pulse Resp BP Pulse Ox 98.2 F 77 16 121/67 100 10/18/18 11:37 10/18/18 11:37 10/18/18 11:37 10/18/18 11:37 10/18/18 11:37 Intake & Output 10/18/18 10/19/18 10/20/18 06:59 06:59 06:59 Intake Total 600 Balance 600 Weight 77.6 kg General appearance: PRESENT: no acute distress, cooperative Eye exam: PRESENT: conjunctiva pink - Obstetrical Exam Fundal Height: 1/u - 2/u Tender: No Result Laboratory Results: 10/18/18 06:46 10/17/18 12:20 10/18/18 10/18/18 10/18/18 06:46 06:46 06:46 WBC 4.4 RBC 2.89 L Hgb 7.1 L Hct 21.7 L MCV 75 L MCH 24.6 L MCHC 32.8 RDW 20.6 H Plt Count 318 Seg Neutrophils % 81.3 H Lymphocytes % 8.9 L Monocytes % 9.0 Eosinophils % 0.6 Basophils % 0.2 Absolute Neutrophils 3.6 Absolute Lymphocytes 0.4 L Absolute Monocytes 0.4 Absolute Eosinophils 0.0 Absolute Basophils 0.0 Retic Count (auto) 1.84 Absolute Retic 0.052 Iron 41.0 TIBC 260 % Saturation 16 Ferritin 760.00 H Vitamin B12 275.0 Folate 15.50 10/17/18 10/17/18 10/19/18 12:20 15:46 06:20 Troponin I < 0.012 < 0.012 NT-Pro-B Natriuret Pep 970 H 1140 H Impressions: Chest X-Ray 10/17/18 12:04 IMPRESSION: Left lower lobe pneumonia. Plan Discharge Plan: d/w Dr. Gallagher and feel that patient's chronic anemia is likely an autoimmune process from her lupus. Dr. Gallagher continues to recommend discontinuing the Fe supplements as her Ferritin is quite high. Will recheck a CBC this AM and if stable discharge home. If she has decreased again will transfuse another 2 units and then discharge. follow up in one week at [facility] to arrange hematology follow up. Time Spent: Less than 30 Minutes
[2018-10-19 07:39] LABS: MEAN CORPUSCULAR HEMOGLOBIN 25.6 pg (27.0-33.4); MEAN CORPUSCULAR HGB CONC 33.9 g/dL (32.0-36.0); MEAN CORPUSCULAR VOLUME 76 fl (80-97); PLATELET COUNT 290 10^3/uL (150-450); RED BLOOD COUNT 2.65 10^6/uL (3.72-5.28); RED CELL DISTRIBUTION WIDTH 20.8 % (11.5-14.0); WHITE BLOOD COUNT 4.4 10^3/uL (4.0-10.5)
[2018-10-19 07:49] LABS: HEMOGLOBIN 6.8 g/dL (12.0-15.5)
[2018-10-19] MEDS ORDERED: DIPHENHYDRAMINE HCL 25 MG CAPSULE PO PRN (08:03)
[2018-10-19] MEDS ORDERED: ACETAMINOPHEN 325 MG TABLET PO PRN (08:03)
[2018-10-19] MEDS ORDERED: FUROSEMIDE 20 MG TABLET PO PRN (08:03)
[2018-10-19] MEDS ORDERED: NORMAL SALINE 250 ML IV PRN ×2 (08:03)
[2018-10-19] MEDS ORDERED: METHYLPREDNISOLONE INJ 40 MG/1 ML SDV IV ONE ×3 (08:04→14:00)
--- NOTE | 2018-10-19 10:07 | PDOC PROGRESS REPORT ---
Subjective Progress Note for:: 10/19/18 Subjective:: Patient states that she is feeling better today, but still appears quite dyspnic. She is awaiting further blood transfusion today prior to discharge. Reason For Visit: ANEMIA Physical Exam Vital Signs: Temp Pulse Resp BP Pulse Ox 98.5 F 87 18 114/62 97 10/19/18 07:39 10/19/18 07:39 10/19/18 07:39 10/19/18 07:39 10/19/18 07:39 Intake & Output 10/18/18 10/19/18 10/20/18 06:59 06:59 06:59 Intake Total 600 Balance 600 Weight 77.6 kg General appearance: PRESENT: mild distress Head exam: PRESENT: normocephalic Respiratory exam: PRESENT: clear to auscultation trevro Cardiovascular exam: PRESENT: gallop, RRR, systolic murmur Neurological exam: PRESENT: alert, awake Psychiatric exam: PRESENT: appropriate affect Skin exam: PRESENT: pallor Results Laboratory Results: 10/19/18 06:20 10/17/18 12:20 10/17/18 10/18/18 10/18/18 12:20 06:46 06:46 WBC RBC Hgb Hct MCV MCH MCHC RDW Plt Count Retic Count (auto) 1.84 Absolute Retic 0.052 Iron 41.0 TIBC 260 % Saturation 16 Ferritin 760.00 H Vitamin B12 275.0 Folate 15.50 Blood Type A POSITIVE Antibody Screen NEGATIVE 10/19/18 06:20 WBC 4.4 RBC 2.65 L Hgb 6.8 L Hct 20.0 L MCV 76 L MCH 25.6 L MCHC 33.9 RDW 20.8 H Plt Count 290 Retic Count (auto) Absolute Retic Iron TIBC % Saturation Ferritin Vitamin B12 Folate Blood Type Antibody Screen 10/17/18 10/17/18 10/19/18 12:20 15:46 06:20 Troponin I < 0.012 < 0.012 NT-Pro-B Natriuret Pep 970 H 1140 H Impressions: Chest X-Ray 10/17/18 12:04 IMPRESSION: Left lower lobe pneumonia. Assessment & Plan - Diagnosis (1) Anemia Qualifiers: Anemia type: unspecified type Qualified Code(s): D64.9 - Anemia, unspecified Is this a current diagnosis for this admission?: Yes Plan: No evidence of iron, B12, Folate deficiency. LDH was normal, which suggests this is a non-hemolytic process. No evidence of active bleeding. This is most likely decreased production due to chronic inflammation from her Lupus. Erythro poetin or blood transfusions would be treatment of choice. Very difficult to get EPO in this situation due to the expense. I agree with another 2 unit transfusion. I would like to follow her with weekly CBCs in my office. I will arrange. (2) , twin, antepartum Qualifiers: Multiple gestation type: unspecified Qualified Code(s): O30.009 - Twin , unspecified number of placenta and unspecified number of amniotic sacs, unspecified trimester Is this a current diagnosis for this admission?: Yes Plan: Patient was discussed with Dr. Meraz
[2018-10-19] MEDS ORDERED: ACETAMINOPHEN 325 MG TABLET ONE (10:22)
[2018-10-19] MEDS ORDERED: DIPHENHYDRAMINE HCL 25 MG CAPSULE ONE (10:22)
[2018-10-19] MEDS ORDERED: METHYLPREDNISOLONE INJ 125 MG/2 ML SDV ONE (10:22)
[2018-10-19 18:34] LABS: HEMATOCRIT 25.2 % (36.0-47.0); HEMOGLOBIN 8.5 g/dL (12.0-15.5); MEAN CORPUSCULAR HGB CONC 33.7 g/dL (32.0-36.0); MEAN CORPUSCULAR VOLUME 77 fl (80-97); PLATELET COUNT 304 10^3/uL (150-450); RED BLOOD COUNT 3.27 10^6/uL (3.72-5.28); RED CELL DISTRIBUTION WIDTH 21.5 % (11.5-14.0); WHITE BLOOD COUNT 5.7 10^3/uL (4.0-10.5)
[2018-10-19 20:51] VITALS: BP 110/52
[2018-10-22 13:38] LABS: HGB A 97.3 % (96.4-98.8); HGB A2 2.7 % (1.8-3.2); HGB SOLUBILITY RESULT Negative (Negative)
== END 2018-10-19 20:53 | disposition home or self-care (01) ==
LOC: ER 11:06 → OROUT 17:25 → EH 17:25 → UNDOADMIN 17:25 → 2S 21:27 → EH 21:27 → OROUT 10-19 20:53 → UNDODISIN 10-19 20:53
PROVIDERS: ATTEND Obstetrics & Gynecology Gynecology
PROC: 30233N1 Transfusion of Nonautologous Red Blood Cells into Peripheral Vein, Percutaneous Approach (ICD-10-PCS; principal; 2018-10-17)
PROC: 30233N1 Transfusion of Nonautologous Red Blood Cells into Peripheral Vein, Percutaneous Approach (ICD-10-PCS; 2018-10-19)
DX: O99.012 Anemia complicating pregnancy, second trimester (principal); O99.112 Other diseases of the blood and blood-forming organs and certain disorders involving the immune mechanism complicating pregnancy, second trimester; O26.892 Other specified pregnancy related conditions, second trimester; D50.0 Iron deficiency anemia secondary to blood loss (chronic); O30.002 Twin pregnancy, unspecified number of placenta and unspecified number of amniotic sacs, second trimester; O99.512 Diseases of the respiratory system complicating pregnancy, second trimester; M32.9 Systemic lupus erythematosus, unspecified; K21.9 Gastro-esophageal reflux disease without esophagitis; I34.0 Nonrheumatic mitral (valve) insufficiency; I50.9 Heart failure, unspecified; J45.909 Unspecified asthma, uncomplicated; Z3A.15 15 weeks gestation of pregnancy; Z79.1 Long term (current) use of non-steroidal anti-inflammatories (NSAID); Z79.899 Other long term (current) drug therapy
CPT/HCPCS: 93005; 99285; 86900; 86901; 36415 ×3; 36430; 86850; 82607; 82728; 82746; 83540; 83550; 83615; 85025 ×2; 85027; 85652; 85045; 80053; 81001; 83020; 84484; 86920; 83880 ×2; 93306; 71045; 93010; P9016 ×2; J3490 ×3; J2920

== ENCOUNTER → 2018-11-21 | Outpatient (CLI) | payer MEDICAID ==
[2018-11-21 13:35] LABS: CREATININE 0.51 mg/dL (0.52-1.25)
[2018-11-21 14:05] LABS: 24 HOUR URINE PROTEIN RESULT 771 mg/day (42-225); URINE PROTEIN 83.8 mg/dL (<12)
[2018-11-21 14:07] LABS: URINE CREATININE 117.5 mg/dL (16-327)
== END ==
LOC: OD 12:28
PROVIDERS: ATTEND Registered Nurse Women's Health Care, Ambulatory
DX: O99.119 Other diseases of the blood and blood-forming organs and certain disorders involving the immune mechanism complicating pregnancy, unspecified trimester (principal); D68.62 Lupus anticoagulant syndrome; O12.10 Gestational proteinuria, unspecified trimester; Z3A.00 Weeks of gestation of pregnancy not specified
CPT/HCPCS: 82575; 84156

== ENCOUNTER 2019-07-18 08:36 | Outpatient (CLI) | payer SELFPAY ==
[~2019-07-18 08:36] MED LIST: FERUMOXYTOL 510 MG in NORMAL SALINE 100 ML IV PRN; NORMAL SALINE 250 ML IV PRN
[2019-07-18 09:06] VITALS: BP 129/72
== END 2019-07-18 10:03 | disposition home or self-care (01) ==
LOC: II 08:36 → 5TH 08:39 → II 10:03
PROVIDERS: ATTEND Internal Medicine Hematology & Oncology
PROC: 3E033GC Introduction of Other Therapeutic Substance into Peripheral Vein, Percutaneous Approach (ICD-10-PCS; principal; 2019-07-18)
DX: D64.9 Anemia, unspecified (principal); D63.8 Anemia in other chronic diseases classified elsewhere
CPT/HCPCS: 96365; Q0138; J7050

== ENCOUNTER 2019-07-25 08:35 | Outpatient (CLI) | payer SELFPAY ==
[2019-07-25 08:58] VITALS: BP 167/71
== END 2019-07-25 09:31 | disposition home or self-care (01) ==
LOC: II 08:35 → 5TH 08:38 → II 09:31
PROVIDERS: ATTEND Internal Medicine Hematology & Oncology
PROC: 3E033GC Introduction of Other Therapeutic Substance into Peripheral Vein, Percutaneous Approach (ICD-10-PCS; principal; 2019-07-25)
DX: D63.8 Anemia in other chronic diseases classified elsewhere (principal)
CPT/HCPCS: 96365; Q0138; J7050

== ENCOUNTER → 2019-11-14 | Outpatient (CLI) | payer OTHER ==
[2019-11-14 17:04] LABS: ABSOLUTE LYMPHOCYTES (AUTO) 0.8 10^3/uL (0.5-4.7); ABSOLUTE MONOCYTES (AUTO) 0.4 10^3/uL (0.1-1.4); BASOPHILS % (AUTO) 0.2 % (0-2); EOSINOPHILS % (AUTO) 0.7 % (0-6); TOTAL CELLS COUNTED % (AUTO) 100 %
[2019-11-14 17:10] LABS: ABSOLUTE NEUT (AUTO) 2.6 10^3/uL (1.7-8.2); HEMATOCRIT 33.5 % (36.0-47.0); HEMOGLOBIN 10.9 g/dL (12.0-15.5); LYMPHOCYTES % (AUTO) 20.8 % (13-45); MEAN CORPUSCULAR HEMOGLOBIN 27.9 pg (27.0-33.4); MEAN CORPUSCULAR HGB CONC 32.4 g/dL (32.0-36.0); MEAN CORPUSCULAR VOLUME 86 fl (80-97); MONOCYTES % (AUTO) 9.3 % (3-13); PLATELET COUNT 184 10^3/uL (150-450); RED CELL DISTRIBUTION WIDTH 14.1 % (11.5-14.0); WHITE BLOOD COUNT 3.8 10^3/uL (4.0-10.5)
[2019-11-14 17:29] LABS: ALBUMIN 2.7 g/dL (3.5-5.0); ALKALINE PHOSPHATASE 68 U/L (38-126); ANION GAP 8 (5-19); ASPARTATE AMINO TRANSFERASE 23 U/L (14-36); BILIRUBIN,DIRECT 0.2 mg/dL (0.0-0.4); BILIRUBIN,TOTAL 0.2 mg/dL (0.2-1.3); BLOOD UREA NITROGEN 18 mg/dL (7-20); CALCIUM 7.7 mg/dL (8.4-10.2); CARBON DIOXIDE 25 mmol/L (22-30); CHLORIDE 102 mmol/L (98-107); GLUCOSE 92 mg/dL (75-110); IRON(TIBC) 29.8 ug/dL (37-170); POTASSIUM 4.9 mmol/L (3.6-5.0); TOTAL PROTEIN 6.5 g/dL (6.3-8.2)
== END ==
LOC: OD 16:30
PROVIDERS: ATTEND Internal Medicine Hematology & Oncology
DX: D63.8 Anemia in other chronic diseases classified elsewhere (principal)
CPT/HCPCS: 36415; 80053; 82728; 83540; 83550; 85025

== ENCOUNTER 2019-11-21 12:03 | Outpatient (CLI) | payer OTHER ==
[2019-11-21 12:16] VITALS: BP 123/79
== END 2019-11-21 13:16 | disposition home or self-care (01) ==
LOC: 5TH 12:03 → II 12:03
PROVIDERS: ATTEND Internal Medicine Hematology & Oncology
DX: O99.89 Other specified diseases and conditions complicating pregnancy, childbirth and the puerperium (principal); M32.9 Systemic lupus erythematosus, unspecified; O99.019 Anemia complicating pregnancy, unspecified trimester; D63.8 Anemia in other chronic diseases classified elsewhere; O30.009 Twin pregnancy, unspecified number of placenta and unspecified number of amniotic sacs, unspecified trimester; O99.519 Diseases of the respiratory system complicating pregnancy, unspecified trimester; J18.9 Pneumonia, unspecified organism
CPT/HCPCS: 96365; Q0138; J7050

== ENCOUNTER 2019-11-28 08:23 | Outpatient (CLI) | payer OTHER ==
[2019-11-28 09:40] VITALS: BP 155/88
== END 2019-11-28 09:45 | disposition home or self-care (01) ==
LOC: II 08:23 → 5TH 08:33 → II 09:45
PROVIDERS: ATTEND Internal Medicine Hematology & Oncology
DX: O99.89 Other specified diseases and conditions complicating pregnancy, childbirth and the puerperium (principal); M32.9 Systemic lupus erythematosus, unspecified; O99.019 Anemia complicating pregnancy, unspecified trimester; D63.8 Anemia in other chronic diseases classified elsewhere; O30.009 Twin pregnancy, unspecified number of placenta and unspecified number of amniotic sacs, unspecified trimester; O99.519 Diseases of the respiratory system complicating pregnancy, unspecified trimester; J18.9 Pneumonia, unspecified organism
CPT/HCPCS: 96365; Q0138; J7050

== ENCOUNTER 2020-01-16 21:09 | Inpatient (IN) | payer SELFPAY ==
--- NOTE | 2020-01-16 21:31 | ER Document Report ---
ED Medical Screen (RME) - General Chief Complaint: Abdominal Pain Stated Complaint: ABDOMINAL PAIN AND VOMITING Time Seen by Provider: 01/16/20 21:30 Primary Care Provider: KEHINDE FRANKLIN MD [Primary Care Provider] - Follow up as needed Notes: HPI: 34-year-old female with history of lupus who is on prednisone presenting for evaluation of generalized abdominal pain over the last 3 days. States it is now more focal in the epigastric left upper quadrant region. She had one episode of vomiting 2 days ago one episode of vomiting yesterday no vomiting today. Currently denies nausea. Has had no chest pain or shortness of breath. Patient is 3 months recently stopped breast-feeding has not had a menstrual cycle since her delivery. PHYSICAL EXAMINATION: Very mild tenderness in the epigastric left upper quadrant region on palpation I have greeted and performed a rapid initial assessment of this patient. A comprehensive ED assessment and evaluation of the patient, analysis of test results and completion of medical decision making process will be conducted by an additional ED providers. TRAVEL OUTSIDE OF THE [place] IN LAST 30 DAYS: No - Related Data Allergies/Adverse Reactions: No Known Allergies Allergy (Verified 10/17/18 20:43) Home Medications: prednisone for lupus Past Medical History - Social History Frequency of alcohol use: None - Past Medical History Cardiac Medical History: Reports: Hx Congestive Heart Failure Pulmonary Medical History: Reports: Hx Asthma Renal/ Medical History: Denies: Hx Peritoneal Dialysis GI Medical History: Reports: Hx Gastroesophageal Reflux Disease Musculoskeltal Medical History: Reports Hx Arthritis Psychiatric Medical History: Reports: Hx Depression Past Surgical History: Reports: Hx Adenoidectomy, Hx Gynecologic Surgery - D/C, Hx Tonsillectomy - tonsils and adenoids - Immunizations Immunizations up to date: No Hx Diphtheria, Pertussis, Tetanus Vaccination: No Physical Exam - Vital signs Vitals: Temp Pulse Resp BP Pulse Ox 98.2 F 76 16 144/90 H 96 01/16/20 21:14 01/16/20 21:14 01/16/20 21:14 01/16/20 21:14 01/16/20 21:14 Course - Vital Signs Vital signs: Temp Pulse Resp BP Pulse Ox 98.2 F 76 16 144/90 H 96 01/16/20 21:16 01/16/20 21:14 01/16/20 21:14 01/16/20 21:14 01/16/20 21:14 Doctor's Discharge - Discharge Referrals: KEHINDE FRANKLIN MD [Primary Care Provider] - Follow up as needed
[2020-01-16 21:54] LABS: APPEARANCE,URINE SLIGHTLY-CLOUDY; BILIRUBIN,URINE NEGATIVE (NEGATIVE); COLOR,URINE YELLOW; GLUCOSE, URINE NEGATIVE (NEGATIVE); KETONES,URINE NEGATIVE (NEGATIVE); LEUKOCYTE ESTERASE,URINE NEGATIVE (NEGATIVE); NITRITE,URINE NEGATIVE (NEGATIVE); PROTEIN,URINE >=500 mg/dL (NEGATIVE); URINE SPECIFIC GRAVITY 1.012; UROBILINOGEN,URINE NEGATIVE mg/dL (<2.0)
[2020-01-16 22:01] LABS: HEMATOCRIT 37.9 % (36.0-47.0); HEMOGLOBIN 12.5 g/dL (12.0-15.5); MEAN CORPUSCULAR HEMOGLOBIN 27.6 pg (27.0-33.4); MEAN CORPUSCULAR HGB CONC 32.9 g/dL (32.0-36.0); MEAN CORPUSCULAR VOLUME 84 fl (80-97); PLATELET COUNT 250 10^3/uL (150-450); RED BLOOD COUNT 4.51 10^6/uL (3.72-5.28); RED CELL DISTRIBUTION WIDTH 15.2 % (11.5-14.0); WHITE BLOOD COUNT 3.9 10^3/uL (4.0-10.5)
[2020-01-16 22:10] LABS: ALBUMIN 2.8 g/dL (3.5-5.0); ALKALINE PHOSPHATASE 68 U/L (38-126); ANION GAP 8 (5-19); ASPARTATE AMINO TRANSFERASE 18 U/L (14-36); BILIRUBIN,TOTAL 0.3 mg/dL (0.2-1.3); BLOOD UREA NITROGEN 36 mg/dL (7-20); CARBON DIOXIDE 19 mmol/L (22-30); CHLORIDE 105 mmol/L (98-107); GLUCOSE 86 mg/dL (75-110); POTASSIUM 4.8 mmol/L (3.6-5.0); TOTAL PROTEIN 6.7 g/dL (6.3-8.2)
[2020-01-16 22:28] LABS: ABSOLUTE LYMPHOCYTES# (MANUAL) 0.4 10^3/uL (0.5-4.7); ABSOLUTE MONOCYTES # (MANUAL) 0.5 10^3/uL (0.1-1.4); BASOPHILS % (MANUAL) 0 % (0-2); EOSINOPHILS % (MANUAL) 0 % (0-6); LYMPHOCYTES % (MANUAL) 10 % (13-45); MONOCYTES % (MANUAL) 14 % (3-13); SEGMENTED NEUTROPHILS % (MAN) 76 % (42-78); TOTAL CELLS COUNTED 100
[2020-01-16 22:29] LABS: ANISOCYTOSIS SLIGHT; OVALOCYTES SLIGHT; PLATELET COMMENT ADEQUATE; POIKILOCYTOSIS SLIGHT
[2020-01-16] MEDS ORDERED: NORMAL SALINE 1000 ML 1,000 ML IV ONE (23:55)
[2020-01-16] MEDS ORDERED: ONDANSETRON HCL INJ/PF 4 MG/2 ML SDV IV ONE (23:55)
[2020-01-17] MEDS ORDERED: MORPHINE SULFATE 10 MG/ML INJ IV ONE (00:14)
--- NOTE | 2020-01-17 00:16 | ER Document Report ---
ED GI/ - General Chief Complaint: Abdominal Pain Stated Complaint: ABDOMINAL PAIN AND VOMITING Time Seen by Provider: 01/16/20 21:30 Primary Care Provider: KEHINDE FRANKLIN MD [Primary Care Provider] - Follow up as needed Mode of Arrival: Ambulatory Information source: Patient Notes: 34-year-old female patient with history of lupus presenting to the emergency department chief complaint of left upper quadrant abdominal pain that began 3 days ago. She reports associated vomiting and diarrhea but denies any fever. She states she has never had pain like this before. She reports the pain has been severe and persistent. She is not taking anything for the pain. She reports that she takes 40 mg of prednisone daily but does not take any other medications. TRAVEL OUTSIDE OF THE [place] IN LAST 30 DAYS: No - Related Data Allergies/Adverse Reactions: No Known Allergies Allergy (Verified 10/17/18 20:43) Home Medications: prednisone for lupus Past Medical History - General Information source: Patient - Social History Smoking Status: Never Smoker Frequency of alcohol use: None Drug Abuse: None Family History: Arthritis, CAD, CVA, DM, Hyperlipidemia, Hypertension, Thyroid Disfunction. denies: COPD, Malignancy Patient has homicidal ideation: No - Past Medical History Cardiac Medical History: Reports: Hx Congestive Heart Failure Pulmonary Medical History: Reports: Hx Asthma Renal/ Medical History: Denies: Hx Peritoneal Dialysis GI Medical History: Reports: Hx Gastroesophageal Reflux Disease Musculoskeletal Medical History: Reports Hx Arthritis Psychiatric Medical History: Reports: Hx Depression Past Surgical History: Reports: Hx Adenoidectomy, Hx Gynecologic Surgery - D/C, Hx Tonsillectomy - tonsils and adenoids - Immunizations Immunizations up to date: No Hx Diphtheria, Pertussis, Tetanus Vaccination: No Review of Systems - Review of Systems Constitutional: denies: Chills, Fever, Weakness Gastrointestinal: Abdominal pain, Diarrhea, Nausea, Vomiting -: Yes All other systems reviewed and negative Physical Exam - Vital signs Vitals: Temp Pulse Resp BP Pulse Ox 98.2 F 76 16 144/90 H 96 01/16/20 21:14 01/16/20 21:14 01/16/20 21:14 01/16/20 21:14 01/16/20 21:14 - Notes Notes: PHYSICAL EXAMINATION: GENERAL: Well-appearing, well-nourished and in mild distress. HEAD: Atraumatic, normocephalic. EYES: Pupils equal round and reactive to light, extraocular movements intact, conjunctiva are normal. ENT: Nares patent, oropharynx clear without exudates. Moist mucous membranes. NECK: Normal range of motion, supple without lymphadenopathy LUNGS: Breath sounds clear to auscultation bilaterally and equal. No wheezes rales or rhonchi. HEART: Regular rate and rhythm without murmurs ABDOMEN: Soft, nondistended abdomen. Tenderness in the left upper quadrant. No guarding, no rebound. No masses appreciated. Female : deferred Musculoskeletal: Normal range of motion, no pitting or edema. No cyanosis. NEUROLOGICAL: Cranial nerves grossly intact. Normal speech. Normal sensory, motor exams PSYCH: Normal mood, normal affect. SKIN: Warm, Dry, normal turgor, no rashes or lesions noted. Course - Re-evaluation Re-evalutation: 01/17/20 00:18 Patient evaluated, patient definitely has tenderness in the left upper quadrant. She has an elevated creatinine of 1.99. Patient has never had a history of kidney dysfunction in the past. Discussed case with attending physician, Dr. salgado. We will proceed with IV hydration, pain and nausea control and also a oral contrasted CT of the abdomen pelvis. Patient up-to-date on plan of care, patient is agreeable to same. Abdomen/Pelvis CT 01/17/20 00:14 IMPRESSION: Moderate free intraperitoneal fluid. Diffuse small bowel edema. Presumed enteritis. No overt hydronephrosis to as well over mild fullness to the collecting systems of both kidneys. Cholelithiasis without distention.. Called and spoke with radiologist regarding the moderate free intraperitoneal fluid. He stated that this would be an expected finding with the enteritis. Patient treated with additional pain medication. I discussed the case with my attending physician, Dr. Carrington who recommended adding on a mono test. Patient is also receiving an additional liter of fluids and we will redraw her metabolic panel. Patient is in agreement with this plan. 01/17/20 06:45 Discussed case as well as repeat chemistry with Dr. Baldwin. Plan to admit patient to hospitalist. 01/17/20 07:[address] Huston, hospitalist he will come down to the emergency department and evaluate the patient. 01/17/20 08:36 Patient accepted for admission. - Vital Signs Vital signs: Temp Pulse Resp BP Pulse Ox 98.2 F 76 21 H 154/99 H 95 01/16/20 21:16 01/16/20 21:14 01/17/20 07:00 01/17/20 02:35 01/17/20 07:00 - Laboratory Result Diagrams: 01/16/20 21:30 01/17/20 06:00 Laboratory results interpreted by me: 01/16/20 01/16/20 01/16/20 21:30 21:30 21:30 WBC 3.9 L RDW 15.2 H Lymphocytes % (Manual) 10 L Monocytes % (Manual) 14 H Abs Lymphs (Manual) 0.4 L Sodium 131.9 L Potassium Chloride Carbon Dioxide 19 L BUN 36 H Creatinine 1.99 H Est GFR ( Amer) 35 L Est GFR (MDRD) Non-Af 29 L Calcium 8.0 L Albumin 2.8 L Urine Protein >=500 H Urine Blood SMALL H 01/17/20 06:00 WBC RDW Lymphocytes % (Manual) Monocytes % (Manual) Abs Lymphs (Manual) Sodium 135.0 L Potassium 5.2 H Chloride 112 H Carbon Dioxide 17 L BUN 31 H Creatinine 1.41 H Est GFR ( Amer) 52 L Est GFR (MDRD) Non-Af 43 L Calcium 7.4 L Albumin Urine Protein Urine Blood Discharge - Discharge Clinical Impression: Hypocalcemia, Hyperkalemia, Acute kidney injury, Left upper quadrant abdominal pain, Nausea vomiting and diarrhea Lupus Qualifiers: Systemic lupus erythematosus type: unspecified Systemic lupus erythematosus organ involvement: unspecified Qualified Code(s): M32.9 - Systemic lupus erythematosus, unspecified Condition: Fair Disposition: ADMITTED INPATIENT Admitting Provider: Betzaida (Hospitalist) Unit Admitted: Medical Floor Referrals: KEHINDE FRANKLIN MD [Primary Care Provider] - Follow up as needed
[2020-01-17 02:17] LABS: INTERNATIONAL RATION (INR) 1.01; PROTHROMBIN TIME 13.3 SEC (11.4-15.4)
[2020-01-17 02:18] LABS: PARTIAL THROMBOPLASTIN TIME 35.3 SEC (23.5-35.8)
--- NOTE | 2020-01-17 03:42 | RADIOLOGY REPORT (SQ) ---
CLINICAL INDICATION: LUQ pain, elevated creatinine. . TECHNIQUE: Noncontrast spiral axial CT imaging was obtained of the abdomen and pelvis with multiplanar reconstructions. This exam was performed according to our departmental dose-optimization program, which includes automated exposure control, adjustment of the mA and/or kV according to patient size and/or use of iterative reconstruction techniques. COMPARISON: None. CORRELATION: None. FINDINGS: Abdomen: The lung bases are grossly clear. The heart appears prominent. No evidence of pleural or pericardial fluid. Mild dependent atelectasis The liver is of normal size contour and attenuation. The gallbladder demonstrates cholelithiasis. The pancreas is of grossly normal contour on this noncontrast examination. The spleen is top normal at 14 cm.. The adrenals are unremarkable. The kidneys appear grossly normal without evidence of urolithiasis or hydronephrosis. Mild fullness to the collecting systems There is no evidence of free air. Moderate free fluid.. No bulky adenopathy. Abdominal aorta is nonaneurysmal. Pelvis: The bowel is nonobstructed. Diffuse small bowel edema is identified.. Pelvic contents are unremarkable. The appendix is not seen. Visualized bones are unremarkable. IMPRESSION: Moderate free intraperitoneal fluid. Diffuse small bowel edema. Presumed enteritis. No overt hydronephrosis to as well over mild fullness to the collecting systems of both kidneys. Cholelithiasis without distention..
[2020-01-17] MEDS ORDERED: NORMAL SALINE 1000 ML 1,000 ML IV ONE (04:16)
[2020-01-17] MEDS ORDERED: HYDROMORPHONE HCL INJ/PF 2 MG/ML AMPULE IV ONE (04:27)
[2020-01-17 06:29] LABS: ANION GAP 6 (5-19); BLOOD UREA NITROGEN 31 mg/dL (7-20); CALCIUM 7.4 mg/dL (8.4-10.2); CARBON DIOXIDE 17 mmol/L (22-30); CHLORIDE 112 mmol/L (98-107); GLUCOSE 86 mg/dL (75-110); POTASSIUM 5.2 mmol/L (3.6-5.0)
[2020-01-17] MEDS ORDERED: CALCIUM GLUCONATE 1000 MG/10 ML INJ IV ONE (06:37)
[2020-01-17] MEDS ORDERED: ONDANSETRON HCL INJ/PF 4 MG/2 ML SDV IV PRN (08:30)
[2020-01-17] MEDS ORDERED: HYDROCORTISONE SOD SUCCINATE INJ/PF 100 MG/2 ML SDV IV ONE (09:15)
[2020-01-17] MEDS: NORMAL SALINE 1000 ML 1,000 ML IV PRN (09:50)
[2020-01-17] MEDS: HYDROCORTISONE SOD SUCCINATE INJ/PF 100 MG/2 ML SDV IV SCH ×2 (13:51→22:50)
--- NOTE | 2020-01-17 14:30 | PDOC H&P ---
History of Present Illness Admission Date/PCP: 01/17/20 08:43 KEHINDE FRANKLIN MD History of Present Illness: SON BELTRAN is a 34 year old female with a history of systemic lupus eryt hematosus who has been on prednisone for quite some time and is in the process of slowly tapering off of it. She said that she has not been taking her prednisone for the past week because she has been having nausea and vomiting. She said a couple time she tried to eat but she is only had a few crackers, some liquids, and she tried to eat a sandwich in the middle of the week. She has not been febrile that she knows of. She did not eat anything out of the ordinary or anything that was raw or undercooked. She is not been around anyone she knows to be sick. She is not had any cough or shortness of breath. 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 When she came into the ER her creatinine was elevated, as she got a couple of liters of IV fluids, her creatinine went down but her potassium went up. She is slightly hyponatremic. CT of her abdomen was unremarkable except for a spleen that was at the upper limits of normal and some mild inflammation of a segment of small bowel. Past Medical History Cardiac Medical History: Reports: Congestive Heart Failure Pulmonary Medical History: Reports: Asthma GI Medical History: Reports: Gastroesophageal Reflux Disease Musculoskeltal Medical History: Reports: Arthritis Psychiatric Medical History: Reports: Depression Hematology: Reports: Anemia Past Surgical History Past Surgical History: Reports: Adenoidectomy, Tonsillectomy - tonsils and adenoids Social History Smoking Status: Never Smoker Drugs: None Family History Family History: Arthritis, CAD, CVA, DM, Hyperlipidemia, Hypertension, Thyroid Disfunction. denies: COPD, Malignancy Parental Family History Reviewed: Yes Children Family History Reviewed: Yes Sibling(s) Family History Reviewed.: Yes Medication/Allergy Home Medications: Prednisone [Deltasone 20 mg Tablet] 40 mg PO DAILY 01/17/20 Allergies/Adverse Reactions: No Known Allergies Allergy (Verified 10/17/18 20:43) Review of Systems All systems: reviewed and no additional remarkable complaints except as stated - All systems were reviewed and were negative except as noted in the HPI Physical Exam Vital Signs: Temp Pulse Resp BP Pulse Ox 97.5 F 70 17 144/94 H 99 01/17/20 12:30 01/17/20 12:30 01/17/20 12:30 01/17/20 12:30 01/17/20 12:30 Intake & Output 01/16/20 01/17/20 01/18/20 06:59 06:59 06:59 Intake Total 1999 Balance 1999 Weight 66.2 kg 66.7 kg General appearance: PRESENT: no acute distress, cooperative, disheveled Head exam: PRESENT: atraumatic, normocephalic Eye exam: PRESENT: EOMI, PERRLA. ABSENT: conjunctival injection, nystagmus, scleral icterus Ear exam: PRESENT: normal external ear exam Mouth exam: PRESENT: dry mucosa, neck supple Throat exam: ABSENT: post pharyngeal erythema Neck exam: PRESENT: full ROM. ABSENT: carotid bruit, JVD, lymphadenopathy, meningismus, tenderness, thyromegaly Respiratory exam: PRESENT: clear to auscultation trevor, symmetrical, unlabored. ABSENT: accessory muscle use, chest wall tenderness, crackles, prolonged expiratory phas, rhonchi, tachypnea, wheezes Cardiovascular exam: PRESENT: RRR, +S1, +S2 Pulses: PRESENT: normal carotid pulses Vascular exam: PRESENT: normal capillary refill GI/Abdominal exam: PRESENT: normal bowel sounds, soft. ABSENT: distended, guarding, rebound, tenderness Extremities exam: ABSENT: clubbing, pedal edema Musculoskeletal exam: PRESENT: normal inspection. ABSENT: deformity Neurological exam: PRESENT: alert, awake, oriented to person, oriented to place, oriented to time, oriented to situation, CN II-XII grossly intact. ABSENT: motor sensory deficit Psychiatric exam: PRESENT: flat affect Skin exam: PRESENT: dry, warm Results Laboratory Results: 01/16/20 21:30 01/17/20 06:00 01/16/20 01/16/20 01/16/20 21:30 21:30 21:30 WBC 3.9 L RBC 4.51 Hgb 12.5 Hct 37.9 MCV 84 MCH 27.6 MCHC 32.9 RDW 15.2 H Plt Count 250 Seg Neutrophils % Not Reportable Sodium 131.9 L Potassium 4.8 Chloride 105 Carbon Dioxide 19 L Anion Gap 8 BUN 36 H Creatinine 1.99 H Est GFR ( Amer) 35 L Glucose 86 Calcium 8.0 L Total Bilirubin 0.3 AST 18 Alkaline Phosphatase 68 Total Protein 6.7 Albumin 2.8 L Lipase 182.3 Urine Color YELLOW Urine Appearance SLIGHTLY-CLOUDY Urine pH 5.0 Ur Specific Fred 1.012 Urine Protein >=500 H Urine Glucose (UA) NEGATIVE Urine Ketones NEGATIVE Urine Blood SMALL H Urine Nitrite NEGATIVE Ur Leukocyte Esterase NEGATIVE Urine WBC (Auto) 14 Urine RBC (Auto) 5 01/17/20 06:00 WBC RBC Hgb Hct MCV MCH MCHC RDW Plt Count Seg Neutrophils % Sodium 135.0 L Potassium 5.2 H Chloride 112 H Carbon Dioxide 17 L Anion Gap 6 BUN 31 H Creatinine 1.41 H Est GFR ( Amer) 52 L Glucose 86 Calcium 7.4 L Total Bilirubin AST Alkaline Phosphatase Total Protein Albumin Lipase Urine Color Urine Appearance Urine pH Ur Specific Fred Urine Protein Urine Glucose (UA) Urine Ketones Urine Blood Urine Nitrite Ur Leukocyte Esterase Urine WBC (Auto) Urine RBC (Auto) Impressions: Abdomen/Pelvis CT 01/17/20 00:14 IMPRESSION: Moderate free intraperitoneal fluid. Diffuse small bowel edema. Presumed enteritis. No overt hydronephrosis to as well over mild fullness to the collecting systems of both kidneys. Cholelithiasis without distention.. Assessment and Plan - Diagnosis (1) Long-term corticosteroid use Is this a current diagnosis for this admission?: Yes Plan: This is the least 1 of the reason for her presentation. She has been on prednisone for months and has not taken it in a week, and this would account for some of her metabolic problems. Again negative for stress dose steroids for a day and then get her back on prednisone. (2) Acute kidney injury Is this a current diagnosis for this admission?: Yes Plan: Prerenal azotemia that responded very well to fluids. We will keep him on some more fluids overnight. Anticipate discharge home tomorrow. (3) Hyperkalemia Is this a current diagnosis for this admission?: Yes Plan: Interesting that it went up after 2 steroid boluses. I wonder if the specimen may have hemolyzed a bit. Really give her some more fluids and we will repeat a BMP this afternoon. (4) Lupus Qualifiers: Systemic lupus erythematosus type: unspecified Systemic lupus erythematosus organ involvement: unspecified Qualified Code(s): M32.9 - Systemic lupus erythematosus, unspecified Is this a current diagnosis for this admission?: Yes Plan: #1 think that her current renal situation is due to lupus. She responded Forteo well to some IV fluids. On stress dosing her steroids and will get her back on her prednisone soon as we can. (5) Nausea vomiting and diarrhea Is this a current diagnosis for this admission?: Yes Plan: Based on her history and her CT scan, she probably has a enteritis, possibly from a viral source. She is not nauseated now and was feeling better after some fluids and states she felt like she could eat. - Time Time Spent with patient: 35 or more minutes
[2020-01-17 15:55] LABS: BLOOD UREA NITROGEN 29 mg/dL (7-20); CALCIUM 7.7 mg/dL (8.4-10.2); CARBON DIOXIDE 18 mmol/L (22-30); GLUCOSE 159 mg/dL (75-110); POTASSIUM 5.4 mmol/L (3.6-5.0)
[2020-01-17 16:00] LABS: CHLORIDE 109 mmol/L (98-107)
[2020-01-17 16:05] LABS: ANION GAP 6 (5-19)
[2020-01-17] MEDS ORDERED: LACTULOSE SYRUP 20 GM/30 ML UDCUP PO ONE (20:15)
[2020-01-18 00:39] LABS: BLOOD UREA NITROGEN 31 mg/dL (7-20); CALCIUM 7.7 mg/dL (8.4-10.2); GLUCOSE 127 mg/dL (75-110); POTASSIUM 5.6 mmol/L (3.6-5.0)
[2020-01-18 00:45] LABS: CARBON DIOXIDE 17 mmol/L (22-30); CHLORIDE 110 mmol/L (98-107)
[2020-01-18 00:46] LABS: ANION GAP 4 (5-19)
[2020-01-18] MEDS: NORMAL SALINE 1000 ML 1,000 ML IV PRN (03:12)
[2020-01-18] MEDS: HYDROCORTISONE SOD SUCCINATE INJ/PF 100 MG/2 ML SDV IV SCH ×2 (05:34→14:56)
[2020-01-18 06:43] LABS: MEAN CORPUSCULAR VOLUME 83 fl (80-97)
[2020-01-18 06:51] LABS: HEMATOCRIT 33.9 % (36.0-47.0); HEMOGLOBIN 11.4 g/dL (12.0-15.5); MEAN CORPUSCULAR HEMOGLOBIN 27.8 pg (27.0-33.4); MEAN CORPUSCULAR HGB CONC 33.6 g/dL (32.0-36.0); RED CELL DISTRIBUTION WIDTH 15.1 % (11.5-14.0); WHITE BLOOD COUNT 2.4 10^3/uL (4.0-10.5)
[2020-01-18 06:52] LABS: PLATELET COUNT 148 10^3/uL (150-450)
[2020-01-18] MEDS ORDERED: LACTULOSE SYRUP 20 GM/30 ML UDCUP PO ONE (06:54)
[2020-01-18 07:07] LABS: ANION GAP 9 (5-19); BLOOD UREA NITROGEN 29 mg/dL (7-20); CALCIUM 7.7 mg/dL (8.4-10.2); CARBON DIOXIDE 15 mmol/L (22-30); CHLORIDE 110 mmol/L (98-107); GLUCOSE 122 mg/dL (75-110); POTASSIUM 5.5 mmol/L (3.6-5.0)
[2020-01-18 11:46] VITALS: BP 141/90
[2020-01-18 14:47] LABS: BLOOD UREA NITROGEN 28 mg/dL (7-20); CALCIUM 7.7 mg/dL (8.4-10.2); CARBON DIOXIDE 19 mmol/L (22-30); CHLORIDE 110 mmol/L (98-107); GLUCOSE 132 mg/dL (75-110); POTASSIUM 4.6 mmol/L (3.6-5.0)
[2020-01-18 14:50] LABS: ANION GAP 4 (5-19)
--- NOTE | 2020-01-18 15:24 | PDOC DISCHARGE SUMMARY ---
Impression - Admit/DC Date/PCP Admission Date/Primary Care Provider: 01/17/20 08:43 KEHINDE FRANKLIN MD Discharge Date: 01/18/20 - Discharge Diagnosis (1) Long-term corticosteroid use Is this a current diagnosis for this admission?: Yes (2) Acute kidney injury Is this a current diagnosis for this admission?: Yes (3) Hyperkalemia Is this a current diagnosis for this admission?: Yes (4) Lupus Is this a current diagnosis for this admission?: Yes (5) Nausea vomiting and diarrhea Is this a current diagnosis for this admission?: Yes - Additional Information Resuscitation Status: Full Code Discharge Diet: Regular Discharge Activity: Activity As Tolerated Referrals: KEHINDE FRANKLIN MD [Primary Care Provider] - Follow up as needed Home Medications: Prednisone [Deltasone 20 mg Tablet] 40 mg PO DAILY 01/17/20 History of Present Illiness History of Present Illness: SON BELTRAN is a 34 year old female with a history of systemic lupus erythematosus who has been on prednisone for quite some time and is in the process of slowly tapering off of it. She said that she has not been taking her prednisone for the past week because she has been having nausea and vomiting. She said a couple time she tried to eat but she is only had a few crackers, some liquids, and she tried to eat a sandwich in the middle of the week. She has not been febrile that she knows of. She did not eat anything out of the ordinary or anything that was raw or undercooked. She is not been around anyone she knows to be sick. She is not had any cough or shortness of breath. The only doctor she has is her host and hostess who is based out of [place] but she sees in an office in [place]. When she came into the ER her creatinine was elevated, as she got a couple of liters of IV fluids, her creatinine went down but her potassium went up. She is slightly hyponatremic. CT of her abdomen was unremarkable except for a spleen that was at the upper limits of normal and some mild inflammation of a segment of small bowel. Hospital Course Hospital Course: She had excellent response to IV fluids. She had not taken her prednisone in days and so we gave her a day of stress dose steroids and she is feeling a lot better today. No more nausea or vomiting. She has been eating and drinking without difficulty. She has had good urine output. Interestingly, her potassium was going up despite IV fluids, but this also corrected itself. She was encouraged to make sure she stays well-hydrated. She verbalizes her understanding. Her labs and examination were reassuring and she was discharged in stable condition. Physical Exam Vital Signs: Temp Pulse Resp BP Pulse Ox 97.9 F 50 L 18 141/90 H 100 01/18/20 11:00 01/18/20 11:00 01/18/20 11:00 01/18/20 11:00 01/18/20 11:00 Intake & Output 01/17/20 01/18/20 01/19/20 06:59 06:59 06:59 Intake Total 1999 1480 995 Balance 1999 1480 995 Weight 66.2 kg 66.7 kg General appearance: PRESENT: no acute distress, cooperative, disheveled Respiratory exam: PRESENT: clear to auscultation trevor, symmetrical, unlabored. ABSENT: accessory muscle use, chest wall tenderness, crackles, prolonged expiratory phas, rhonchi, tachypnea, wheezes Cardiovascular exam: PRESENT: RRR, +S1, +S2 Pulses: PRESENT: normal carotid pulses Vascular exam: PRESENT: normal capillary refill GI/Abdominal exam: PRESENT: normal bowel sounds, soft. ABSENT: distended, guarding, rebound, tenderness Extremities exam: ABSENT: clubbing, pedal edema Musculoskeletal exam: PRESENT: normal inspection. ABSENT: deformity Neurological exam: PRESENT: alert, awake, oriented to person, oriented to place, oriented to time, oriented to situation Psychiatric exam: PRESENT: Appropriate affect, normal mood Skin exam: PRESENT: dry, warm Results Laboratory Results: WBC 2.4 10^3/uL (4.0-10.5) L D 01/18/20 05:46 RBC 4.10 10^6/uL (3.72-5.28) 01/18/20 05:46 Hgb 11.4 g/dL (12.0-15.5) L 01/18/20 05:46 Hct 33.9 % (36.0-47.0) L 01/18/20 05:46 MCV 83 fl (80-97) 01/18/20 05:46 MCH 27.8 pg (27.0-33.4) 01/18/20 05:46 MCHC 33.6 g/dL (32.0-36.0) 01/18/20 05:46 RDW 15.1 % (11.5-14.0) H 01/18/20 05:46 Plt Count 148 10^3/uL (150-450) L 01/18/20 05:46 Lymph % (Auto) Not Reportable 01/16/20 21:30 [place] % (Auto) Not Reportable 01/16/20 21:30 Eos % (Auto) Not Reportable 01/16/20 21:30 Baso % (Auto) Not Reportable 01/16/20 21:30 Absolute Neuts (auto) Not Reportable 01/16/20 21:30 Absolute Lymphs (auto) Not Reportable 01/16/20 21:30 Absolute Monos (auto) Not Reportable 01/16/20 21:30 Absolute Eos (auto) Not Reportable 01/16/20 21:30 Absolute Basos (auto) Not Reportable 01/16/20 21:30 Total Counted 100 01/16/20 21:30 Seg Neutrophils % Not Reportable 01/16/20 21:30 Seg Neuts % (Manual) 76 % (42-78) 01/16/20 21:30 Lymphocytes % (Manual) 10 % (13-45) L 01/16/20 21:30 Monocytes % (Manual) 14 % (3-13) H 01/16/20 21:30 Eosinophils % (Manual) 0 % (0-6) 01/16/20 21:30 Basophils % (Manual) 0 % (0-2) 01/16/20 21:30 Abs Neuts (Manual) 3.0 10^3/uL (1.7-8.2) 01/16/20 21:30 Abs Lymphs (Manual) 0.4 10^3/uL (0.5-4.7) L 01/16/20 21:30 Abs Monocytes (Manual) 0.5 10^3/uL (0.1-1.4) 01/16/20 21:30 Absolute Eos (Manual) 0.0 10^3/uL (0.0-0.6) 01/16/20 21:30 Abs Basophils (Manual) 0.0 10^3/uL (0.0-0.2) 01/16/20 21:30 Platelet Comment ADEQUATE 01/16/20 21:30 Poikilocytosis SLIGHT 01/16/20 21:30 Anisocytosis SLIGHT 01/16/20 21:30 Ovalocytes SLIGHT 01/16/20 21:30 PT 13.3 SEC (11.4-15.4) 01/17/20 02:00 INR 1.01 01/17/20 02:00 APTT 35.3 SEC (23.5-35.8) 01/17/20 02:00 Sodium 133.3 mmol/L (137-145) L 01/18/20 14:25 Potassium 4.6 mmol/L (3.6-5.0) 01/18/20 14:25 Chloride 110 mmol/L (98-107) H 01/18/20 14:25 Carbon Dioxide 19 mmol/L (22-30) L 01/18/20 14:25 Anion Gap 4 (5-19) L 01/18/20 14:25 BUN 28 mg/dL (7-20) H 01/18/20 14:25 Creatinine 1.34 mg/dL (0.52-1.25) H 01/18/20 14:25 Est GFR ( Amer) 55 (>60) L 01/18/20 14:25 Est GFR (MDRD) Non-Af 46 (>60) L 01/18/20 14:25 Glucose 132 mg/dL (75-110) H 01/18/20 14:25 Calcium 7.7 mg/dL (8.4-10.2) L 01/18/20 14:25 Total Bilirubin 0.3 mg/dL (0.2-1.3) 01/16/20 21:30 Direct Bilirubin 0.0 mg/dL (0.0-0.4) 01/16/20 21:30 Neonat Total Bilirubin Not Reportable 01/16/20 21:30 Neonat Direct Bilirubin Not Reportable 01/16/20 21:30 Neonat Indirect Bili Not Reportable 01/16/20 21:30 AST 18 U/L (14-36) 01/16/20 21:30 ALT 8 U/L (<35) 01/16/20 21:30 Alkaline Phosphatase 68 U/L (38-126) 01/16/20 21:30 Total Protein 6.7 g/dL (6.3-8.2) 01/16/20 21:30 Albumin 2.8 g/dL (3.5-5.0) L 01/16/20 21:30 Lipase 182.3 U/L (23-300) 01/16/20 21:30 Urine Color YELLOW 01/16/20 21:30 Urine Appearance SLIGHTLY-CLOUDY 01/16/20 21:30 Urine pH 5.0 (5.0-9.0) 01/16/20 21:30 Ur Specific [place] 1.012 01/16/20 21:30 Urine Protein >=500 mg/dL (NEGATIVE) H 01/16/20 21:30 Urine Glucose (UA) NEGATIVE mg/dL (NEGATIVE) 01/16/20 21:30 Urine Ketones NEGATIVE mg/dL (NEGATIVE) 01/16/20 21: Urine Blood SMALL (NEGATIVE) H 01/16/20 21:30 Urine Nitrite NEGATIVE (NEGATIVE) 01/16/20 21:30 Urine Bilirubin NEGATIVE (NEGATIVE) 01/16/20 21:30 Urine Urobilinogen NEGATIVE mg/dL (<2.0) 01/16/20 21:30 Ur Leukocyte Esterase NEGATIVE (NEGATIVE) 01/16/20 21:30 Urine WBC (Auto) 14 /HPF 01/16/20 21:30 Urine RBC (Auto) 5 /HPF 01/16/20 21:30 U Hyaline Cast (Auto) 10 /LPF 01/16/20 21:30 Urine Bacteria (Auto) TRACE /HPF 01/16/20 21:30 Squamous Epi Cells Auto 1 /HPF 01/16/20 21:30 Urine Mucus (Auto) RARE /LPF 01/16/20 21:30 Urine Ascorbic Acid NEGATIVE (NEGATIVE) 01/16/20 21:30 Urine HCG, Qual NEGATIVE (NEGATIVE) 01/16/20 21:30 Monotest NEGATIVE (NEGATIVE) 01/16/20 21:30 Impressions: Abdomen/Pelvis CT 01/17/20 00:14 IMPRESSION: Moderate free intraperitoneal fluid. Diffuse small bowel edema. Presumed enteritis. No overt hydronephrosis to as well over mild fullness to the collecting systems of both kidneys. Cholelithiasis without distention.. Plan Time Spent: Greater than 30 Minutes Stroke Is this a Stroke Patient?: No Acute Heart Failure - Is this a Heart Failure Patient?: No
== END 2020-01-18 15:55 | disposition home or self-care (01) | DRG 684 ==
LOC: ER 21:09 → EH 01-17 08:43 → 4W 01-17 10:49
PROVIDERS: ADMIT Family Medicine; ATTEND Family Medicine
DX: N17.9 Acute kidney failure, unspecified (principal); M32.9 Systemic lupus erythematosus, unspecified; E86.0 Dehydration; E87.5 Hyperkalemia; K21.9 Gastro-esophageal reflux disease without esophagitis; F32.9 Major depressive disorder, single episode, unspecified; D64.9 Anemia, unspecified; K52.9 Noninfective gastroenteritis and colitis, unspecified; Z79.52 Long term (current) use of systemic steroids
CPT/HCPCS: 36415; 74176; 80048; 80053; 81001; 81025; 83690; 85025; 85027; 85610; 85730; 86308; 96361; 96374; 96375; 99285; J0610; J1170; J1720; J2270; J2405; J7030

== ENCOUNTER 2020-02-20 09:08 | Outpatient (CLI) | payer SELFPAY ==
[~2020-02-20 09:08] MED LIST changes: +FERUMOXYTOL (NON-ESRD) 510 MG/NS 100 ML IV PRN; -FERUMOXYTOL 510 MG in NORMAL SALINE 100 ML IV PRN
[2020-02-20 09:35] VITALS: BP 170/95
== END 2020-02-20 10:23 | disposition home or self-care (01) ==
LOC: II 09:08 → 5TH 09:08 → II 10:23
PROVIDERS: ATTEND Internal Medicine Hematology & Oncology
DX: N18.9 Chronic kidney disease, unspecified (principal); D63.8 Anemia in other chronic diseases classified elsewhere
CPT/HCPCS: 96365; Q0138; J7050

== ENCOUNTER 2020-02-27 09:10 | Outpatient (CLI) | payer SELFPAY ==
[2020-02-27 09:27] VITALS: BP 128/91
== END 2020-02-27 09:48 | disposition home or self-care (01) ==
LOC: II 09:10 → 5TH 09:10 → II 09:48
PROVIDERS: ATTEND Internal Medicine Hematology & Oncology
DX: D53.8 Other specified nutritional anemias (principal)
CPT/HCPCS: 96365; Q0138; J7050

== ENCOUNTER 2020-04-26 15:27 | Inpatient (IN) | payer SELFPAY ==
--- NOTE | 2020-04-26 16:34 | ER Document Report ---
ED Medical Screen (RME) - General Chief Complaint: Ankle Swelling Stated Complaint: ANKLE/LEG SWELLING, FOOT PAIN Time Seen by Provider: 04/26/20 16:25 Primary Care Provider: KEHINDE FRANKLIN MD [Primary Care Provider] - Follow up as needed Mode of Arrival: Wheelchair Information source: Patient Notes: 34-year-old female presents to ED for high blood pressure shortness of breath pedal edema and distended abdomen. She does have a history of CHF pleurisy lupus reflux tonsils and adenoids . Her bilateral feet are at least 3+ her abdomen is distended but soft active bowel sounds. She states she keeps having to get iron transfusions but I do not know where the blood is going. She is alert oriented during all questions appropriately. She is mildly short of breath. I have greeted and performed a rapid initial assessment of this patient. A comprehensive ED assessment and evaluation of the patient, analysis of test results and completion of medical decision making process will be conducted by an additional ED providers. TRAVEL OUTSIDE OF THE [place] IN LAST 30 DAYS: No - Related Data Allergies/Adverse Reactions: No Known Allergies Allergy (Verified 04/26/20 16:26) Past Medical History - Past Medical History Cardiac Medical History: Reports: Hx Congestive Heart Failure Pulmonary Medical History: Reports: Hx Asthma Renal/ Medical History: Denies: Hx Peritoneal Dialysis GI Medical History: Reports: Hx Gastroesophageal Reflux Disease Musculoskeltal Medical History: Reports Hx Arthritis Psychiatric Medical History: Reports: Hx Depression Past Surgical History: Reports: Hx Adenoidectomy, Hx Gynecologic Surgery - D/C, Hx Tonsillectomy - tonsils and adenoids - Immunizations Immunizations up to date: No Hx Diphtheria, Pertussis, Tetanus Vaccination: No Physical Exam - Vital signs Vitals: Temp Pulse Resp BP Pulse Ox 98.8 F 92 20 155/110 H 100 04/26/20 16:03 04/26/20 16:03 04/26/20 16:03 04/26/20 16:03 04/26/20 16:03 Course - Vital Signs Vital signs: Temp Pulse Resp BP Pulse Ox 98.8 F 92 20 155/110 H 100 04/26/20 16:03 04/26/20 16:03 04/26/20 16:03 04/26/20 16:03 04/26/20 16:03 Doctor's Discharge - Discharge Referrals: KEHINDE FRANKLIN MD [Primary Care Provider] - Follow up as needed
[2020-04-26 17:54] LABS: APPEARANCE,URINE CLOUDY; BILIRUBIN,URINE NEGATIVE (NEGATIVE); COLOR,URINE YELLOW; GLUCOSE, URINE NEGATIVE (NEGATIVE); KETONES,URINE NEGATIVE (NEGATIVE); LEUKOCYTE ESTERASE,URINE MODERATE (NEGATIVE); NITRITE,URINE NEGATIVE (NEGATIVE); PROTEIN,URINE >=500 mg/dL (NEGATIVE); URINE SPECIFIC GRAVITY 1.015; UROBILINOGEN,URINE NEGATIVE mg/dL (<2.0)
--- NOTE | 2020-04-26 18:00 | RADIOLOGY REPORT (SQ) ---
EXAM DESCRIPTION: CHEST 2 VIEWS IMAGES COMPLETED DATE/TIME: 04/26/2020 5:48 pm REASON FOR STUDY: Short of breath pedal edema history of CHF/pleuris COMPARISON: 10/17/2018 EXAM PARAMETERS: NUMBER OF VIEWS: two views TECHNIQUE: Digital Frontal and Lateral radiographic views of the chest acquired. RADIATION DOSE: NA LIMITATIONS: none FINDINGS: LUNGS AND PLEURA: Small pleural effusions. No acute infiltrate. No mass. MEDIASTINUM AND HILAR STRUCTURES: No masses or contour abnormalities. HEART AND VASCULAR STRUCTURES: Borderline heart size with no pulmonary edema. BONES: No acute findings. HARDWARE: None in the chest. OTHER: No other significant finding. IMPRESSION: Borderline heart size with no pulmonary edema. Small pleural effusions. TECHNICAL DOCUMENTATION: JOB ID: [id number] [employer]- All Rights Reserved Reading location - IP/workstation name: [email or web address]
[2020-04-26 18:13] LABS: ALBUMIN 2.1 g/dL (3.5-5.0); ALKALINE PHOSPHATASE 73 U/L (38-126); ASPARTATE AMINO TRANSFERASE 24 U/L (14-36); BILIRUBIN,DIRECT 0.3 mg/dL (0.0-0.4); BILIRUBIN,TOTAL 0.3 mg/dL (0.2-1.3); BLOOD UREA NITROGEN 47 mg/dL (7-20); CALCIUM 7.3 mg/dL (8.4-10.2); CREATINE KINASE 83 U/L (30-135); GLUCOSE 86 mg/dL (75-110); POTASSIUM 5.5 mmol/L (3.6-5.0); TOTAL PROTEIN 5.6 g/dL (6.3-8.2)
[2020-04-26 18:20] LABS: CARBON DIOXIDE 20 mmol/L (22-30); CHLORIDE 115 mmol/L (98-107)
[2020-04-26 18:21] LABS: ANION GAP 4 (5-19)
--- NOTE | 2020-04-26 18:21 | EKG REPORT ---
SEVERITY:- ABNORMAL ECG - SINUS RHYTHM PROBABLE LEFT ATRIAL ABNORMALITY CONSIDER OLD ANTERIOR MS : Confirmed by: Lele Brown MD 26-Apr-2020 18:20:53
[2020-04-26 18:22] LABS: HEMATOCRIT 31.1 % (36.0-47.0); HEMOGLOBIN 10.1 g/dL (12.0-15.5); MEAN CORPUSCULAR HEMOGLOBIN 27.3 pg (27.0-33.4); MEAN CORPUSCULAR HGB CONC 32.3 g/dL (32.0-36.0); MEAN CORPUSCULAR VOLUME 84 fl (80-97); PLATELET COUNT 236 10^3/uL (150-450); RED BLOOD COUNT 3.69 10^6/uL (3.72-5.28); RED CELL DISTRIBUTION WIDTH 14.5 % (11.5-14.0); WHITE BLOOD COUNT 4.1 10^3/uL (4.0-10.5)
[2020-04-26 18:25] LABS: TROPONIN I 0.037 ng/mL
[2020-04-26 18:49] LABS: ABSOLUTE LYMPHOCYTES# (MANUAL) 0.4 10^3/uL (0.5-4.7); ABSOLUTE MONOCYTES # (MANUAL) 0.3 10^3/uL (0.1-1.4); BAND NEUTROPHILS % (MANUAL) 1 % (3-5); BASOPHILS % (MANUAL) 1 % (0-2); EOSINOPHILS % (MANUAL) 0 % (0-6); LYMPHOCYTES % (MANUAL) 8 % (13-45); MONOCYTES % (MANUAL) 7 % (3-13); SEGMENTED NEUTROPHILS % (MAN) 81 % (42-78); TOTAL CELLS COUNTED 100
[2020-04-26 18:55] LABS: ANISOCYTOSIS SLIGHT
[2020-04-26 18:56] LABS: OVALOCYTES 1+; POIKILOCYTOSIS 1+; POLYCHROMASIA 1+
[2020-04-26 18:57] LABS: PLATELET CLUMPS PRESENT; PLATELET COMMENT ADEQUATE
--- NOTE | 2020-04-26 22:22 | ER Document Report ---
ED General - General Chief Complaint: Shortness Of Breath Stated Complaint: ANKLE/LEG SWELLING, FOOT PAIN Time Seen by Provider: 04/26/20 16:25 Primary Care Provider: KEHINDE FRANKLIN MD [Primary Care Provider] - Follow up as needed Mode of Arrival: Wheelchair Information source: Patient Notes: Patient is a 31-year-old female comes emergency room complaining of bilateral lower extremity edema and some mild abdominal swelling. Patient states that she sees hematology oncology because she has iron deficiency and she gets iron transfusions. She states that she started noticing the symptoms approximately 3 weeks ago with a very mild and that over the course of the last 3 days she is started to balloon up in swelling. She has become more short of breath. She is having difficult time laying flat. She noticed some swelling in her abdomen as well. Patient's only other past medical history is pertinent for the lupus. She also states she is not been on any steroids and does not feel like this is a lupus flareup. Patient's last menstrual period was approximately 29 March and she is not sexually active. Patient states that she has no diagnosis of congestive heart failure to fast with the exception of 2 years ago when she went to [facility] they told her she had the characteristics of having congestive heart failure but she states was never diagnosed with it and she is on no diuretics. TRAVEL OUTSIDE OF THE [place] IN LAST 30 DAYS: No - HPI Onset: Last week Onset/Duration: Gradual Quality of pain: Cramping, Pressure, Sharp Severity: Moderate Pain Level: 3 Associated symptoms: denies: Nausea, Vomiting - With Exacerbated by: Movement, Walking Relieved by: Denies Similar symptoms previously: Yes Recently seen / treated by doctor: No - Related Data Allergies/Adverse Reactions: No Known Allergies Allergy (Verified 04/26/20 16:26) Home Medications: b12, omeprazole Past Medical History - General Information source: Patient - Social History Smoking Status: Never Smoker Chew tobacco use (# tins/day): No Frequency of alcohol use: None Drug Abuse: None Family History: Arthritis, CAD, CVA, DM, Hyperlipidemia, Hypertension, Thyroid Disfunction. denies: COPD, Malignancy Patient has homicidal ideation: No - Past Medical History Cardiac Medical History: Reports: Hx Congestive Heart Failure Pulmonary Medical History: Reports: Hx Asthma Renal/ Medical History: Denies: Hx Peritoneal Dialysis GI Medical History: Reports: Hx Gastroesophageal Reflux Disease Musculoskeletal Medical History: Reports Hx Arthritis Psychiatric Medical History: Reports: Hx Depression Past Surgical History: Reports: Hx Adenoidectomy, Hx Section - x1, Hx Gynecologic Surgery - D/C, Hx Tonsillectomy - tonsils and adenoids - Immunizations Immunizations up to date: No Hx Diphtheria, Pertussis, Tetanus Vaccination: No Review of Systems - Review of Systems Constitutional: No symptoms reported EENT: No symptoms reported Cardiovascular: No symptoms reported Respiratory: See HPI, Short of breath Gastrointestinal: See HPI Genitourinary: No symptoms reported Female Genitourinary: No symptoms reported Musculoskeletal: Leg swelling, Ankle swelling Skin: No symptoms reported Hematologic/Lymphatic: No symptoms reported Neurological/Psychological: No symptoms reported -: Yes All other systems reviewed and negative Physical Exam - Vital signs Vitals: Temp Pulse Resp BP Pulse Ox 98.8 F 92 20 155/110 H 100 04/26/20 16:03 04/26/20 16:03 04/26/20 16:03 04/26/20 16:03 04/26/20 16:03 Interpretation: Hypertensive - Notes Notes: PHYSICAL EXAMINATION: GENERAL: Patient does appear somewhat uncomfortable. Patient is a well-no urished well-developed 34-year-old female no apparent distress on examination sitting. HEAD: Atraumatic, normocephalic. EYES: Pupils equal round and reactive to light, extraocular movements intact, conjunctiva are normal. ENT: Nares patent, oropharynx clear without exudates. Moist mucous membranes. NECK: Normal range of motion, supple without lymphadenopathy LUNGS: Auscultation of his lungs shows bilateral breath sounds are decreased throughout there appears to be some rales mid lung on the left side. But no rhonchi or wheezing heard. HEART: Regular rate and rhythm without murmurs ABDOMEN: Examination patient's abdomen shows it to be somewhat distended possible moderate amount of ascites to could be noted. Difficult to get a fluid wave patient does not want to lay flat. Bowel sounds are present all 4 quads. She is really nontender to palpate at this time. Female : deferred Musculoskeleta Patient examination of lower extremities does show that she has 2-3+ pitting edema on bilateral lower extremities. This to include the feet ankles knees and slightly into the calves. NEUROLOGICAL: . Normal speech, normal gait. Normal sensory, motor exams PSYCH: Normal mood, normal affect. SKIN: Warm, Dry, normal turgor, no rashes or lesions noted. Course - Re-evaluation Re-evalutation: 04/26/20 22:22 I discussed the case with Dr. Stanley and given patient has a 25,000 BNP with proteinuria and slightly elevated troponin I contacted the hospitalist for admission. We are placing patient in for CHF exacerbation hyperkalemia - Vital Signs Vital signs: Temp Pulse Resp BP Pulse Ox 98.8 F 92 23 H 187/108 H 100 04/26/20 16:03 04/26/20 16:03 04/26/20 20:01 04/26/20 20:01 04/26/20 20:01 - Laboratory Result Diagrams: 04/26/20 17:16 04/26/20 17:16 Laboratory results interpreted by me: 04/26/20 04/26/20 04/26/20 17:16 17:16 17:16 RBC 3.69 L Hgb 10.1 L Hct 31.1 L RDW 14.5 H Seg Neuts % (Manual) 81 H Band Neutrophils % 1 L Lymphocytes % (Manual) 8 L Abs Lymphs (Manual) 0.4 L Potassium 5.5 H Chloride 115 H Carbon Dioxide 20 L Anion Gap 4 L BUN 47 H Creatinine 2.30 H Est GFR ( Amer) 30 L Est GFR (MDRD) Non-Af 24 L Calcium 7.3 L Magnesium 2.4 H NT-Pro-B Natriuret Pep 12645 H Total Protein 5.6 L Albumin 2.1 L Urine Protein Urine Blood Ur Leukocyte Esterase 04/26/20 17:16 RBC Hgb Hct RDW Seg Neuts % (Manual) Band Neutrophils % Lymphocytes % (Manual) Abs Lymphs (Manual) Potassium Chloride Carbon Dioxide Anion Gap BUN Creatinine Est GFR ( Amer) Est GFR (MDRD) Non-Af Calcium Magnesium NT-Pro-B Natriuret Pep Total Protein Albumin Urine Protein >=500 H Urine Blood SMALL H Ur Leukocyte Esterase MODERATE H Discharge - Discharge Clinical Impression: Hyperkalemia Congestive heart failure Qualifiers: Heart failure type: unspecified Heart failure chronicity: acute Qualified Code(s): I50.9 - Heart failure, unspecified Proteinuria Qualifiers: Proteinuria type: unspecified Qualified Code(s): R80.9 - Proteinuria, unspecified Condition: Stable Disposition: ADMITTED INPATIENT Admitting Provider: Kj (Hospitalist) Unit Admitted: IMCU Referrals: KEHINDE FRANKLIN MD [Primary Care Provider] - Follow up as needed
[2020-04-26] MEDS ORDERED: INSULIN REG, HUMAN 100 UNIT/ML 3 ML VIAL (PYX) SUBCUT ONE (22:25)
[2020-04-26] MEDS ORDERED: DEXTROSE 50%-WATER 25 GM/50 ML DISP.SYRIN IV ONE (22:25)
[2020-04-26] MEDS ORDERED: ALBUTEROL SULFATE 0.042% NEB (1.25 MG/3 ML) AMPUL NEB ONE (22:25)
[2020-04-26] MEDS ORDERED: CALCIUM GLUCONATE 1000 MG/10 ML INJ IV ONE (22:25)
[2020-04-26] MEDS ORDERED: SODIUM POLYSTYRENE SULFONATE 15 GM/60 ML PO ONE (22:26)
[2020-04-26] MEDS ORDERED: FUROSEMIDE INJ/PF 20 MG/2 ML SDV IV ONE (22:30)
[2020-04-26] MEDS ORDERED: ACETAMINOPHEN 325 MG TABLET PO PRN (22:33)
[2020-04-26] MEDS ORDERED: ONDANSETRON HCL INJ/PF 4 MG/2 ML SDV IV PRN (22:33)
[2020-04-26] MEDS ORDERED: IPRATROPIUM/ALBUTEROL 0.5-2.5 MG/3 ML AMPUL NEB PRN (22:33)
[2020-04-26] MEDS ORDERED: PROMETHAZINE HCL INJ 25 MG/1 ML VIAL IV PRN (22:33)
[2020-04-26] MEDS ORDERED: OXYCODONE-ACETAMINOPHEN 5-325 MG TABLET PO PRN (22:33)
[2020-04-26 22:54] LABS: CHOLESTEROL 233.02 mg/dL (0-200); TRIGLYCERIDES 302 mg/dL (<150); VLDL CHOLESTEROL 60.4 mg/dL (10-31)
[2020-04-26] MEDS ORDERED: FAMOTIDINE 20 MG TABLET PO ONE (23:00)
[2020-04-26 23:05] LABS: DIRECT LDL 117 mg/dL (<100)
[2020-04-26] MEDS ORDERED: HYDROXYCHLOROQUINE SULFATE 200 MG TABLET PO ONE (23:30)
[2020-04-26] MEDS ORDERED: METHYLPREDNISOLONE INJ 40 MG/1 ML SDV IV ONE (23:30)
[2020-04-26 23:37] LABS: URINE AMPHETAMINES SCREEN NEGATIVE; URINE BARBITURATES SCREEN NEGATIVE; URINE BENZODIAZEPINES SCREEN NEGATIVE; URINE COCAINE SCREEN NEGATIVE; URINE MARIJUANA (THC) SCREEN NEGATIVE; URINE METHADONE SCREEN NEGATIVE; URINE PHENCYCLIDINE SCREEN NEGATIVE
--- NOTE | 2020-04-26 23:43 | PDOC H&P ---
History of Present Illness Admission Date/PCP: 04/26/20 22:38 KEHINDE FRANKLIN MD History of Present Illness: SON BELTRAN is a 34 year old female past medical history untreated lupus erythematosus, chronic iron deficiency anemia, CKD, presenting to ED complaining of progressively worsening bilateral lower extremity edema, abdominal distention, orthopnea and paroxysmal nocturnal dyspnea for the last several weeks. She used to take methotrexate however was stopped at it was not working for her, she was switched to Plaquenil but unfortunately she had to stop taking it as she could not see a automotive engineer due to financial reason and did not have a prescription for Plaquenil, she was taking prednisone which she states was recently stopped stopped as to see if her chronic iron deficiency anemia was caused due to stomach ulcer caused by chronic prednisone intake. About 3 to 4 weeks ago patient started noticing abdominal distention, bilateral lower extremity swelling extending proximally to her thighs and recently patient has been experiencing orthopnea and paroxysmal nocturnal dyspnea. Patient denies any cloudy urine, decrease in urine output, dysuria, hematuria, patient is to drink excessive fluid as it was feels thirsty, denies ingesting any nephrotoxic medication, any history of CAD or CHF, denies any history of hypertension, denies any IV drug abuse. Denies any oral, genital or skin rash, denies any joint pain or swelling. In ED she was noted to be hypertensive, tachypneic, hyperkalemia, elevated creatinine, elevated troponin, elevated proBNP, positive leukocyte esterase and excessive proteinuria, chest x-ray was negative for any acute abnormalities. Hospitalist consulted for admission. Past Medical History Cardiac Medical History: Reports: Congestive Heart Failure Pulmonary Medical History: Reports: Asthma GI Medical History: Reports: Gastroesophageal Reflux Disease Musculoskeltal Medical History: Reports: Arthritis Psychiatric Medical History: Reports: Depression Hematology: Reports: Anemia Past Surgical History Past Surgical History: Reports: Adenoidectomy, Section - x1, Tonsillectomy - tonsils and adenoids Social History Smoking Status: Never Smoker Electronic Cigarette use?: No Frequency of Alcohol Use: None Hx Recreational Drug Use: No Drugs: None Hx Prescription Drug Abuse: No Family History Family History: Arthritis, CAD, CVA, DM, Hyperlipidemia, Hypertension, Thyroid Disfunction. denies: COPD, Malignancy Parental Family History Reviewed: Yes Children Family History Reviewed: Yes Sibling(s) Family History Reviewed.: Yes Medication/Allergy Home Medications: Prednisone [Deltasone 20 mg Tablet] 40 mg PO DAILY 01/17/20 Allergies/Adverse Reactions: No Known Allergies Allergy (Verified 04/26/20 16:26) Review of Systems Review of Systems: as per hpi Physical Exam Vital Signs: Temp Pulse Resp BP Pulse Ox 98.8 F 92 23 H 187/108 H 100 04/26/20 16:03 04/26/20 16:03 04/26/20 20:01 04/26/20 20:01 04/26/20 20:01 Intake & Output 04/25/20 04/26/20 04/27/20 06:59 06:59 06:59 Weight 76.8 kg General appearance: PRESENT: mild distress, obese Head exam: PRESENT: atraumatic, normocephalic Eye exam: PRESENT: periorbital swelling Neck exam: PRESENT: JVD Respiratory exam: PRESENT: crackles, tachypnea. ABSENT: rales, rhonchi, wheezes Cardiovascular exam: PRESENT: RRR, tachycardia. ABSENT: diastolic murmur, rubs, systolic murmur GI/Abdominal exam: PRESENT: normal bowel sounds, soft. ABSENT: distended, guarding, mass, organolmegaly, rebound, tenderness Extremities exam: PRESENT: +2 edema Neurological exam: PRESENT: alert, awake, oriented to person, oriented to place, oriented to time, oriented to situation, CN II-XII grossly intact. ABSENT: motor sensory deficit Skin exam: PRESENT: dry, intact, warm. ABSENT: cyanosis, rash Results Laboratory Results: 04/26/20 17:16 04/26/20 17:16 04/26/20 04/26/20 04/26/20 17:16 17:16 17:16 WBC 4.1 RBC 3.69 L Hgb 10.1 L Hct 31.1 L MCV 84 MCH 27.3 MCHC 32.3 RDW 14.5 H Plt Count 236 Seg Neutrophils % Not Reportable Sodium 138.7 Potassium 5.5 H Chloride 115 H Carbon Dioxide 20 L Anion Gap 4 L BUN 47 H Creatinine 2.30 H Est GFR ( Amer) 30 L Glucose 86 Calcium 7.3 L Magnesium 2.4 H Total Bilirubin 0.3 AST 24 Alkaline Phosphatase 73 C-Reactive Protein Total Protein 5.6 L Albumin 2.1 L Triglycerides Cholesterol LDL Cholesterol Direct VLDL Cholesterol HDL Cholesterol Lipase 276.0 Serum HCG, Qual NEGATIVE Urine Color Urine Appearance Urine pH Ur Specific [place] Urine Protein Urine Glucose (UA) Urine Ketones Urine Blood Urine Nitrite Ur Leukocyte Esterase Urine WBC (Auto) Urine RBC (Auto) Blood Type Antibody Screen 04/26/20 04/26/20 04/26/20 17:16 17:16 17:16 WBC RBC Hgb Hct MCV MCH MCHC RDW Plt Count Seg Neutrophils % Sodium Potassium Chloride Carbon Dioxide Anion Gap BUN Creatinine Est GFR ( Amer) Glucose Calcium Magnesium Total Bilirubin AST Alkaline Phosphatase C-Reactive Protein Total Protein Albumin Triglycerides 302 H Cholesterol 233.02 H LDL Cholesterol Direct 117 H VLDL Cholesterol 60.4 H HDL Cholesterol 42 Lipase Serum HCG, Qual Urine Color YELLOW Urine Appearance CLOUDY Urine pH 6.0 Ur Specific [place] 1.015 Urine Protein >=500 H Urine Glucose (UA) NEGATIVE Urine Ketones NEGATIVE Urine Blood SMALL H Urine Nitrite NEGATIVE Ur Leukocyte Esterase MODERATE H Urine WBC (Auto) 19 Urine RBC (Auto) 8 Blood Type A POSITIVE Antibody Screen NEGATIVE 04/26/20 17:16 WBC RBC Hgb Hct MCV MCH MCHC RDW Plt Count Seg Neutrophils % Sodium Potassium Chloride Carbon Dioxide Anion Gap BUN Creatinine Est GFR ( Amer) Glucose Calcium Magnesium Total Bilirubin AST Alkaline Phosphatase C-Reactive Protein 10.7 H Total Protein Albumin Triglycerides Cholesterol LDL Cholesterol Direct VLDL Cholesterol HDL Cholesterol Lipase Serum HCG, Qual Urine Color Urine Appearance Urine pH Ur Specific [place] Urine Protein Urine Glucose (UA) Urine Ketones Urine Blood Urine Nitrite Ur Leukocyte Esterase Urine WBC (Auto) Urine RBC (Auto) Blood Type Antibody Screen 04/26/20 04/26/20 17:16 17:16 Creatine Kinase 83 Troponin I 0.037 NT-Pro-B Natriuret Pep [id number] H Impressions: Chest X-Ray 04/26/20 16:31 IMPRESSION: Borderline heart size with no pulmonary edema. Small pleural effusions. Assessment and Plan - Diagnosis (1) Acute congestive heart failure Qualifiers: Heart failure type: systolic Qualified Code(s): I50.21 - Acute systolic (congestive) heart failure Is this a current diagnosis for this admission?: Yes Plan: Denies any history of CAD. Mildly elevated troponins likely due to mismatch. No acute EKG changes. This is likely as a consequence of renal failure caused by untreated systemic lupus erythematosus. Patient is presenting with anasarca, complaining of orthopnea and paroxysmal [place] [id number]. Recent 2D echo was negative for any acute abnormalities. Admit to IMCU, IV diuretics guided by volume status and renal function, trend troponins ,daily weight, strict in and out, fluid restriction. May need to repeat 2D echo if no resolution. (2) Anasarca Is this a current diagnosis for this admission?: Yes Plan: Due to #1. Plan as per number of. (3) Acute kidney injury superimposed on CKD Is this a current diagnosis for this admission?: Yes Plan: Likely the consequence of untreated systemic lupus erythematosus. Patient is presenting with hyperkalemia, metabolic acidosis and significant proteinuria on UA. Denies ingesting any nephrotoxic meds. Monitor volume status and electrolytes, replace as needed, avoid nephrotoxic meds. Significant proteinuria on UA. We will obtain C3, C4, double-stranded DNA, CRP, sed rate, urine protein, urine creatinine, urine sodium. We will consult nephrology, patient may need renal biopsy if this is suspected to be lupus nephritis. (4) Systemic lupus erythematosus Qualifiers: Systemic lupus erythematosus organ involvement: glomerular disease Is this a current diagnosis for this admission?: Yes Plan: History of untreated lupus erythematosus. Patient used to take methotrexate but was stopped by her automotive engineer at it was not working. Patient was taking Plaquenil but unfortunately stopped a year ago due to financial reasons. Patient was on steroids but it was stopped recently to see if her chronic iron deficiency anemia was caused by stomach ulcer due to chronic steroid intake. We will resume Plaquenil, IV Solu-Medrol. Will obtain C3, C4, [id number] DNA. Consult case management for possible assisting with medication. Unfortunately no rheumatology consult available at [facility]. Outpatient PCP and rheumatology follow-up. (5) Chronic iron deficiency anemia Is this a current diagnosis for this admission?: Yes Plan: History of chronic iron deficiency anemia requiring IV iron transfusion. No sign of acute bleeding. Denies any hematemesis, hemoptysis, easy bleeding, hematuria, melena or hematochezia. Monitor H&H. Followed by Dr. Foster auto tire recapper. Will consult hematology. (6) Metabolic acidosis Is this a current diagnosis for this admission?: Yes Plan: Most likely due to LAMAR and CKD. Plan as per above. (7) Hyperkalemia Is this a current diagnosis for this admission?: Yes (8) Proteinuria Qualifiers: Proteinuria type: unspecified Qualified Code(s): R80.9 - Proteinuria, unspecified Is this a current diagnosis for this admission?: Yes Plan: Likely due to untreated SLE or lupus nephritis. We will quantify urine protein and consult nephrology. Patient may need renal biopsy if this is suspected to be lupus nephritis. (9) Hypertension Is this a current diagnosis for this admission?: Yes Plan: Volume overload. Not controlled. Continue IV diuretics, may start on beta-blockers once euvolemic, may start on ISADORA or ARB once renal function improves. PRN IV hydralazine. - Time Time Spent with patient: 35 or more minutes Medications reviewed and adjusted accordingly: Yes Anticipated Discharge Disposition: Home with Home Health Anticipated Discharge Timeframe: within 72 hours
[2020-04-27] MEDS ORDERED: HYDRALAZINE HCL INJ/PF 20 MG/1 ML SDV IV PRN (00:10)
[2020-04-27] MEDS ORDERED: HYDRALAZINE HCL INJ/PF 20 MG/1 ML SDV IV ONE (01:24)
[2020-04-27 01:27] LABS: URINE CREATININE 36.3 mg/dL (16-327)
[2020-04-27 01:33] LABS: ANION GAP 5 (5-19); BLOOD UREA NITROGEN 44 mg/dL (7-20); CALCIUM 7.8 mg/dL (8.4-10.2); CARBON DIOXIDE 17 mmol/L (22-30); CHLORIDE 117 mmol/L (98-107); GLUCOSE 152 mg/dL (75-110); POTASSIUM 4.8 mmol/L (3.6-5.0)
--- NOTE | 2020-04-27 02:18 | RADIOLOGY REPORT (SQ) ---
RENAL ULTRASOUND: 04/27/2020 1:16 AM CDT HISTORY: 34-year old with acute kidney injury, proteinuria. COMPARISON: CT of abdomen and pelvis from 01/17/2020 TECHNIQUE: Limited sonographic evaluation of the kidneys was performed. FINDINGS: Both kidneys demonstrate diffusely increased cortical echogenicity. The right kidney measures up to 12.6 cm in length. The left kidney measures up to 12.3 cm in length. No hydronephrosis is noted in either kidney. The spleen measures at least 12.0 cm in length. Trace free intraperitoneal fluid is seen at the right adnexa. The urinary bladder is decompressed by a Sood catheter. The abdominal aorta and inferior vena cava are not well visualized. IMPRESSION: There is no evidence of hydronephrosis. Trace free intraperitoneal fluid is seen. Both kidneys demonstrate increased cortical echogenicity, suggestive of chronic medical renal disease.
[2020-04-27] MEDS ORDERED: HYDROXYCHLOROQUINE SULFATE 200 MG TABLET ONE (03:19)
[2020-04-27] MEDS ORDERED: HEPARIN SOD (PORCINE) 5,000 UNIT/ML 1 ML VIAL SUBCUT SCH (06:00)
[2020-04-27] MEDS ORDERED: FUROSEMIDE INJ/PF 20 MG/2 ML SDV IV SCH (06:00)
[2020-04-27] MEDS: METHYLPREDNISOLONE INJ 40 MG/1 ML SDV IV SCH ×3 (06:36→21:10)
[2020-04-27] MEDS: INSULIN LISPRO 100 UNIT/ML 3 ML VIAL SUBCUT SCH ×4 (07:41→21:27)
[2020-04-27 08:25] LABS: HEMATOCRIT 28.6 % (36.0-47.0); HEMOGLOBIN 9.5 g/dL (12.0-15.5); MEAN CORPUSCULAR HEMOGLOBIN 27.7 pg (27.0-33.4); MEAN CORPUSCULAR HGB CONC 33.2 g/dL (32.0-36.0); MEAN CORPUSCULAR VOLUME 83 fl (80-97); PLATELET COUNT 235 10^3/uL (150-450); RED BLOOD COUNT 3.43 10^6/uL (3.72-5.28); RED CELL DISTRIBUTION WIDTH 14.6 % (11.5-14.0); WHITE BLOOD COUNT 3.7 10^3/uL (4.0-10.5)
[2020-04-27 08:39] LABS: ALKALINE PHOSPHATASE 71 U/L (38-126); ASPARTATE AMINO TRANSFERASE 22 U/L (14-36); BILIRUBIN,DIRECT 0.2 mg/dL (0.0-0.4); BILIRUBIN,TOTAL 0.2 mg/dL (0.2-1.3); BLOOD UREA NITROGEN 41 mg/dL (7-20); CALCIUM 7.6 mg/dL (8.4-10.2); CARBON DIOXIDE 18 mmol/L (22-30); GLUCOSE 117 mg/dL (75-110); PHOSPHORUS 5.2 mg/dL (2.5-4.5); POTASSIUM 5.4 mmol/L (3.6-5.0); TOTAL PROTEIN 5.6 g/dL (6.3-8.2)
[2020-04-27 08:44] LABS: CHLORIDE 116 mmol/L (98-107)
[2020-04-27 08:46] LABS: ANION GAP 4 (5-19)
--- NOTE | 2020-04-27 09:00 | PDOC CONSULTATION ---
Consultation Consult Date: 04/27/20 Provider Consulted: KEHINDE FRANKLIN Consult reason:: Hematology/Oncology consultation was requested for patient with iron deficiency anemia admitted with evidence of CHF. History of Present Illness Admission Date/PCP: 04/26/20 22:38 KEHINDE FRANKLIN MD History of Present Illness: SON BELTRAN is a 34 year old female who has a history of Lupus as well as chronic iron deficiency anemia. She most recently received IV iron infusion February 19 and February 26. She states that she was having more energy after these infusions, but her IV iron requirement has increased, raising the possibility of a chronic bleed. Although she had menses in Mar, and GI blood loss has been considered as well. She presented to the ED with a sudden onset of fatigue, abdominal bloating and swelling in her legs. Past Medical History Cardiac Medical History: Reports: Congestive Heart Failure Pulmonary Medical History: Reports: Asthma GI Medical History: Reports: Gastroesophageal Reflux Disease Musculoskeltal Medical History: Reports: Arthritis Psychiatric Medical History: Reports: Depression Hematology: Reports: Anemia Past Surgical History Past Surgical History: Reports: Adenoidectomy, Section - x1, Tonsillectomy - tonsils and adenoids Social History Smoking Status: Never Smoker Electronic Cigarette use?: No Frequency of Alcohol Use: None Hx Recreational Drug Use: No Drugs: None Hx Prescription Drug Abuse: No Family History Family History: Arthritis, CAD, CVA, DM, Hyperlipidemia, Hypertension, Thyroid Disfunction. denies: COPD, Malignancy Parental Family History Reviewed: Yes Children Family History Reviewed: No Sibling(s) Family History Reviewed.: No Medication/Allergy Home Medications: Prednisone [Deltasone 20 mg Tablet] 40 mg PO DAILY 01/17/20 Allergies/Adverse Reactions: No Known Allergies Allergy (Verified 04/26/20 16:26) Review of Systems Constitutional: ABSENT: fever(s), headache(s) Eyes: ABSENT: visual disturbances Ears: ABSENT: hearing changes Nose, Mouth, and Throat: ABSENT: sore throat Cardiovascular: PRESENT: orthropnea Respiratory: PRESENT: dyspnea Gastrointestinal: PRESENT: abdominal pain, bloating. ABSENT: constipation Genitourinary: ABSENT: dysuria Musculoskeletal: PRESENT: as per HPI Integumentary: ABSENT: rash Neurological: PRESENT: weakness Hematologic/Lymphatic: ABSENT: easy bleeding Physical Exam Vital Signs: Temp Pulse Resp BP Pulse Ox 98.4 F 76 30 H 146/89 H 97 04/27/20 02:51 04/27/20 06:49 04/27/20 02:51 04/27/20 02:51 04/27/20 02:51 Intake & Output 04/26/20 04/27/20 04/28/20 06:59 06:59 06:59 Output Total 625 Balance -625 Weight 69.3 kg General appearance: PRESENT: no acute distress, well-developed, well-nourished Head exam: PRESENT: normocephalic Eye exam: PRESENT: EOMI Mouth exam: PRESENT: moist Neck exam: ABSENT: JVD Respiratory exam: PRESENT: unlabored GI/Abdominal exam: ABSENT: distended Extremities exam: PRESENT: +1 edema Musculoskeletal exam: PRESENT: normal inspection Neurological exam: PRESENT: alert, awake Psychiatric exam: PRESENT: appropriate affect Skin exam: PRESENT: normal color Results Laboratory Results: 04/27/20 07:39 04/26/20 04/26/20 04/26/20 17:16 17:16 17:16 WBC 4.1 RBC 3.69 L Hgb 10.1 L Hct 31.1 L MCV 84 MCH 27.3 MCHC 32.3 RDW 14.5 H Plt Count 236 Seg Neutrophils % Not Reportable Sodium 138.7 Potassium 5.5 H Chloride 115 H Carbon Dioxide 20 L Anion Gap 4 L BUN 47 H Creatinine 2.30 H Est GFR ( Amer) 30 L Glucose 86 Calcium 7.3 L Phosphorus Magnesium 2.4 H Total Bilirubin 0.3 AST 24 Alkaline Phosphatase 73 C-Reactive Protein Total Protein 5.6 L Albumin 2.1 L Triglycerides Cholesterol LDL Cholesterol Direct VLDL Cholesterol HDL Cholesterol Lipase 276.0 Serum HCG, Qual NEGATIVE Urine Color Urine Appearance Urine pH Ur Specific [place] Urine Protein Urine Glucose (UA) Urine Ketones Urine Blood Urine Nitrite Ur Leukocyte Esterase Urine WBC (Auto) Urine RBC (Auto) Blood Type Antibody Screen 04/26/20 04/26/20 04/26/20 17:16 17:16 17:16 WBC RBC Hgb Hct MCV MCH MCHC RDW Plt Count Seg Neutrophils % Sodium Potassium Chloride Carbon Dioxide Anion Gap BUN Creatinine Est GFR ( Amer) Glucose Calcium Phosphorus Magnesium Total Bilirubin AST Alkaline Phosphatase C-Reactive Protein Total Protein Albumin Triglycerides 302 H Cholesterol 233.02 H LDL Cholesterol Direct 117 H VLDL Cholesterol 60.4 H HDL Cholesterol 42 Lipase Serum HCG, Qual Urine Color YELLOW Urine Appearance CLOUDY Urine pH 6.0 Ur Specific [place] 1.015 Urine Protein >=500 H Urine Glucose (UA) NEGATIVE Urine Ketones NEGATIVE Urine Blood SMALL H Urine Nitrite NEGATIVE Ur Leukocyte Esterase MODERATE H Urine WBC (Auto) 19 Urine RBC (Auto) 8 Blood Type A POSITIVE Antibody Screen NEGATIVE 04/26/20 04/27/20 04/27/20 17:16 00:45 07:39 WBC RBC Hgb Hct MCV MCH MCHC RDW Plt Count Seg Neutrophils % Sodium 139.4 138.2 Potassium 4.8 5.4 H Chloride 117 H 116 H Carbon Dioxide 17 L 18 L Anion Gap 5 4 L BUN 44 H 41 H Creatinine 2.15 H 2.28 H Est GFR ( Amer) 32 L 30 L Glucose 152 H 117 H Calcium 7.8 L 7.6 L Phosphorus 5.2 H Magnesium 2.2 Total Bilirubin 0.2 AST 22 Alkaline Phosphatase 71 C-Reactive Protein 10.7 H Total Protein 5.6 L Albumin 2.0 L Triglycerides Cholesterol LDL Cholesterol Direct VLDL Cholesterol HDL Cholesterol Lipase Serum HCG, Qual Urine Color Urine Appearance Urine pH Ur Specific [place] Urine Protein Urine Glucose (UA) Urine Ketones Urine Blood Urine Nitrite Ur Leukocyte Esterase Urine WBC (Auto) Urine RBC (Auto) Blood Type Antibody Screen 04/26/20 04/26/20 04/27/20 17:16 17:16 00:45 Creatine Kinase 83 Troponin I 0.037 0.045 NT-Pro-B Natriuret Pep 13883 H Impressions: Chest X-Ray 04/26/20 16:31 IMPRESSION: Borderline heart size with no pulmonary edema. Small pleural effusions. Renal Ultrasound 04/27/20 21:50 IMPRESSION: There is no evidence of hydronephrosis. Trace free intraperitoneal fluid is seen. Both kidneys demonstrate increased cortical echogenicity, suggestive of chronic medical renal disease. Assessment & Plan - Diagnosis (1) Chronic iron deficiency anemia Is this a current diagnosis for this admission?: Yes Plan: I will repeat ferritin now, to see if this remains low, despite IV iron. If so, then will repeat IV iron and consider GI work-up for blood loss. Often, severe iron deficiency can cause her current symptoms, but at this point it does not appear that this is the cause. Consider CT abdomen, once renal function improves. - Plan Summary Plan Summary: I will be happy to follow her with you.
[2020-04-27 09:02] LABS: ABSOLUTE LYMPHOCYTES# (MANUAL) 0.3 10^3/uL (0.5-4.7); ANISOCYTOSIS SLIGHT; BASOPHILS % (MANUAL) 0 % (0-2); EOSINOPHILS % (MANUAL) 0 % (0-6); LYMPHOCYTES % (MANUAL) 8 % (13-45); MONOCYTES % (MANUAL) 1 % (3-13); PLATELET COMMENT ADEQUATE; SEGMENTED NEUTROPHILS % (MAN) 91 % (42-78); TOTAL CELLS COUNTED 100
[2020-04-27 09:03] LABS: HYPOCHROMASIA SLIGHT; OVALOCYTES SLIGHT
[2020-04-27 09:09] LABS: ABSOLUTE RETICS # 0.049 10^6/uL (0.028-0.122); RETICULOCYTE COUNT (AUTO) 1.41 % (0.66-2.85)
[2020-04-27] MEDS: HYDROXYCHLOROQUINE SULFATE 200 MG TABLET PO SCH ×2 (09:49→17:23)
[2020-04-27] MEDS: FUROSEMIDE INJ/PF 20 MG/2 ML SDV IV SCH ×2 (09:50→17:23)
[2020-04-27] MEDS ORDERED: FAMOTIDINE 20 MG TABLET PO SCH (10:00)
[2020-04-27] MEDS: CAPTOPRIL 12.5 MG TABLET PO SCH ×2 (10:28→21:58)
[2020-04-27 11:01] LABS: IRON(TIBC) < 10.1 ug/dL (37-170)
[2020-04-27 14:01] LABS: INTERNATIONAL RATION (INR) 0.93; PARTIAL THROMBOPLASTIN TIME 31.4 SEC (23.5-35.8); PROTHROMBIN TIME 12.7 SEC (11.4-15.4)
[2020-04-27] MEDS ORDERED: LABETALOL HCL INJ 20 MG/4 ML DISP.SYRIN IV PRN (15:15)
[2020-04-27] MEDS ORDERED: IRON SUCROSE COMPLEX INJ/PF 100 MG/5 ML SDV IV SCH (15:15)
--- NOTE | 2020-04-27 15:35 | PDOC PROGRESS REPORT ---
Subjective Progress Note for:: 04/27/20 Subjective:: Patient states her main problem is the lower extremity swelling. Did have some shortness of breath as well. Confirms that she does not take any medication for her lupus due to financial reasons. 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 Bone. Currently denies any chest pain. Reason For Visit: HYPERKALEMIA,ACUTE CHF EXACERBATION,LAMAR, Physical Exam Vital Signs: Temp Pulse Resp BP Pulse Ox 98.1 F 67 16 151/96 H 97 04/27/20 07:32 04/27/20 14:00 04/27/20 09:35 04/27/20 09:57 04/27/20 09:35 Intake & Output 04/26/20 04/27/20 04/28/20 06:59 06:59 06:59 Output Total 625 Balance -625 Weight 69.3 kg General appearance: PRESENT: no acute distress, cooperative Neck exam: ABSENT: JVD Respiratory exam: PRESENT: crackles, symmetrical, unlabored. ABSENT: tachypnea, wheezes Cardiovascular exam: PRESENT: RRR, +S1, +S2. ABSENT: tachycardia GI/Abdominal exam: PRESENT: soft. ABSENT: rebound, rigid, tenderness Extremities exam: PRESENT: pedal edema, +2 edema. ABSENT: calf tenderness Neurological exam: PRESENT: alert, awake, oriented to person, oriented to place, oriented to time Psychiatric exam: ABSENT: agitated, anxious Results Laboratory Results: 04/27/20 07:39 04/27/20 07:39 04/26/20 04/26/20 04/26/20 17:16 17:16 17:16 WBC 4.1 RBC 3.69 L Hgb 10.1 L Hct 31.1 L MCV 84 MCH 27.3 MCHC 32.3 RDW 14.5 H Plt Count 236 Seg Neutrophils % Not Reportable Retic Count (auto) Sodium 138.7 Potassium 5.5 H Chloride 115 H Carbon Dioxide 20 L Anion Gap 4 L BUN 47 H Creatinine 2.30 H Est GFR ( Amer) 30 L Glucose 86 Calcium 7.3 L Phosphorus Magnesium 2.4 H Iron TIBC Ferritin Total Bilirubin 0.3 AST 24 Alkaline Phosphatase 73 C-Reactive Protein Total Protein 5.6 L Albumin 2.1 L Triglycerides Cholesterol LDL Cholesterol Direct VLDL Cholesterol HDL Cholesterol Lipase 276.0 Vitamin B12 Folate TSH Serum HCG, Qual NEGATIVE Urine Color Urine Appearance Urine pH Ur Specific [place] Urine Protein Urine Glucose (UA) Urine Ketones Urine Blood Urine Nitrite Ur Leukocyte Esterase Urine WBC (Auto) Urine RBC (Auto) Blood Type Antibody Screen 04/26/20 04/26/20 04/26/20 17:16 17:16 17:16 WBC RBC Hgb Hct MCV MCH MCHC RDW Plt Count Seg Neutrophils % Retic Count (auto) Sodium Potassium Chloride Carbon Dioxide Anion Gap BUN Creatinine Est GFR ( Amer) Glucose Calcium Phosphorus Magnesium Iron TIBC Ferritin Total Bilirubin AST Alkaline Phosphatase C-Reactive Protein Total Protein Albumin Triglycerides 302 H Cholesterol 233.02 H LDL Cholesterol Direct 117 H VLDL Cholesterol 60.4 H HDL Cholesterol 42 Lipase Vitamin B12 Folate TSH Serum HCG, Qual Urine Color YELLOW Urine Appearance CLOUDY Urine pH 6.0 Ur Specific [place] 1.015 Urine Protein >=500 H Urine Glucose (UA) NEGATIVE Urine Ketones NEGATIVE Urine Blood SMALL H Urine Nitrite NEGATIVE Ur Leukocyte Esterase MODERATE H Urine WBC (Auto) 19 Urine RBC (Auto) 8 Blood Type A POSITIVE Antibody Screen NEGATIVE 04/26/20 04/27/20 04/27/20 17:16 00:45 07:39 WBC 3.7 L RBC 3.43 L Hgb 9.5 L Hct 28.6 L MCV 83 MCH 27.7 MCHC 33.2 RDW 14.6 H Plt Count 235 Seg Neutrophils % Not Reportable Retic Count (auto) Sodium 139.4 Potassium 4.8 Chloride 117 H Carbon Dioxide 17 L Anion Gap 5 BUN 44 H Creatinine 2.15 H Est GFR ( Amer) 32 L Glucose 152 H Calcium 7.8 L Phosphorus Magnesium Iron TIBC Ferritin Total Bilirubin AST Alkaline Phosphatase C-Reactive Protein 10.7 H Total Protein Albumin Triglycerides Cholesterol LDL Cholesterol Direct VLDL Cholesterol HDL Cholesterol Lipase Vitamin B12 Folate TSH Serum HCG, Qual Urine Color Urine Appearance Urine pH Ur Specific [place] Urine Protein Urine Glucose (UA) Urine Ketones Urine Blood Urine Nitrite Ur Leukocyte Esterase Urine WBC (Auto) Urine RBC (Auto) Blood Type Antibody Screen 04/27/20 04/27/20 04/27/20 07:39 07:39 07:39 WBC RBC Hgb Hct MCV MCH MCHC RDW Plt Count Seg Neutrophils % Retic Count (auto) 1.41 Sodium 138.2 Potassium 5.4 H Chloride 116 H Carbon Dioxide 18 L Anion Gap 4 L BUN 41 H Creatinine 2.28 H Est GFR ( Amer) 30 L Glucose 117 H Calcium 7.6 L Phosphorus 5.2 H Magnesium 2.2 Iron TIBC Ferritin Total Bilirubin 0.2 AST 22 Alkaline Phosphatase 71 C-Reactive Protein Total Protein 5.6 L Albumin 2.0 L Triglycerides Cholesterol LDL Cholesterol Direct VLDL Cholesterol HDL Cholesterol Lipase Vitamin B12 Folate TSH 1.58 Serum HCG, Qual Urine Color Urine Appearance Urine pH Ur Specific [place] Urine Protein Urine Glucose (UA) Urine Ketones Urine Blood Urine Nitrite Ur Leukocyte Esterase Urine WBC (Auto) Urine RBC (Auto) Blood Type Antibody Screen 04/27/20 07:39 WBC RBC Hgb Hct MCV MCH MCHC RDW Plt Count Seg Neutrophils % Retic Count (auto) Sodium Potassium Chloride Carbon Dioxide Anion Gap BUN Creatinine Est GFR ( Amer) Glucose Calcium Phosphorus Magnesium Iron < 10.1 L TIBC 158 L Ferritin 27.90 Total Bilirubin AST Alkaline Phosphatase C-Reactive Protein Total Protein Albumin Triglycerides Cholesterol LDL Cholesterol Direct VLDL Cholesterol HDL Cholesterol Lipase Vitamin B12 971.0 H Folate 17.30 TSH Serum HCG, Qual Urine Color Urine Appearance Urine pH Ur Specific [place] Urine Protein Urine Glucose (UA) Urine Ketones Urine Blood Urine Nitrite Ur Leukocyte Esterase Urine WBC (Auto) Urine RBC (Auto) Blood Type Antibody Screen 04/26/20 04/26/20 04/27/20 17:16 17:16 00:45 Creatine Kinase 83 Troponin I 0.037 0.045 NT-Pro-B Natriuret Pep 25708 H 04/27/20 07:39 Creatine Kinase Troponin I 0.048 NT-Pro-B Natriuret Pep Impressions: Chest X-Ray 04/26/20 16:31 IMPRESSION: Borderline heart size with no pulmonary edema. Small pleural effusions. Renal Ultrasound 04/27/20 21:50 IMPRESSION: There is no evidence of hydronephrosis. Trace free intraperitoneal fluid is seen. Both kidneys demonstrate increased cortical echogenicity, suggestive of chronic medical renal disease. Assessment and Plan - Diagnosis (1) Nephrotic syndrome Is this a current diagnosis for this admission?: Yes Plan: Seems this may very well be the culprit of patient's anasarca. Continue diuresis Lasix IV 40 mg twice daily. Strict I's and O's. Protein creatinine ratio is exceedingly high given an estimation of>18G/24HR We will do a 24-hour urine protein collection I suspect this is likely a manifestation of lupus nephritis Diagnostic labs ordered Ultimately, she will likely need pulse dose Solu-Medrol for 3 days then snf high-dose prednisone as well as MMF. However we will obtain kidney biopsy first tomorrow. Hold heparin. Nephrology is following (2) Acute congestive heart failure Qualifiers: Heart failure type: diastolic Qualified Code(s): I50.31 - Acute diastolic (congestive) heart failure Is this a current diagnosis for this admission?: Yes Plan: Echocardiogram 09/2018 showed normal left heart systolic and diastolic function but did show a moderate MR and mild pulmonary hypertension. We will repeat another echo. However I suspect patient's fluid overload state and elevated BNP are likely secondary to nephrotic syndrome more so than heart failure. (3) Acute kidney injury superimposed on CKD Is this a current diagnosis for this admission?: Yes Plan: Renal ultrasound indicating of chronic renal disease. Creatinine much higher than before. Plan as problem #1. (4) Chronic iron deficiency anemia Is this a current diagnosis for this admission?: Yes Plan: Severely iron deficient. Will give Venofer for 3 days. Initiated on ferrous sulfate. (5) Hyperkalemia Is this a current diagnosis for this admission?: Yes Plan: Potassium is 5.4 this morning. Likely secondary to renal failure. Received a dose of Kayexalate close to midnight. Will give some time to have effect. Will repeat BMP later today and treat accordingly if needed. IV Lasix should help as well. (6) Hypertension Is this a current diagnosis for this admission?: Yes Plan: Constellation of renal failure. Will start on captopril p.o. given nephrotic syndrome-Uptitrate as needed. IV labetalol as needed. (7) Metabolic acidosis Is this a current diagnosis for this admission?: Yes Plan: Most likely due to LAMAR and CKD. Monitor bicarb on BMP. (8) Systemic lupus erythematosus Qualifiers: Systemic lupus erythematosus type: other Systemic lupus erythematosus organ involvement: glomerular disease Qualified Code(s): M32.14 - Glomerular disease in systemic lupus erythematosus Is this a current diagnosis for this admission?: Yes Plan: History of untreated lupus erythematosus. Patient used to take methotrexate but was stopped by her delivery sales worker Dr. Bone as it was not working. Patient was taking Plaquenil but unfortunately stopped a year ago due to financial reasons. Patient was on steroids but it was stopped recently to see if her chronic iron deficiency anemia was caused by stomach ulcer due to chronic steroid intake. We will resume Plaquenil, IV Solu-Medrol. Will obtain C3, C4, [id number] DNA. Consult case management for possible assisting with medication. Unfortunately no rheumatology consult available at [facility]. Outpatient PCP and rheumatology follow-up. - Time Time Spent with patient: 15-24 minutes Anticipated Discharge Disposition: Home, Self Care Anticipated Discharge Timeframe: undetermined. several days
[2020-04-27 16:34] LABS: ANION GAP 5 (5-19); BLOOD UREA NITROGEN 45 mg/dL (7-20); CALCIUM 7.7 mg/dL (8.4-10.2); CARBON DIOXIDE 17 mmol/L (22-30); CHLORIDE 116 mmol/L (98-107); GLUCOSE 179 mg/dL (75-110); POTASSIUM 5.5 mmol/L (3.6-5.0)
[2020-04-27] MEDS: IRON SUCROSE COMPLEX 300 MG in NORMAL SALINE 250 ML IV SCH (17:47)
[2020-04-27] MEDS ORDERED: IRON DEXTRAN COMPLEX 300 MG in NORMAL SALINE 500 ML IV SCH (18:00)
[2020-04-27] MEDS ORDERED: LACTULOSE SYRUP 20 GM/30 ML UDCUP PO ONE (19:30)
--- NOTE | 2020-04-27 19:47 | XCELERA REPORT ---
[address] [address] Transthoracic Echocardiogram Report Name: SON BELTRAN Age: 34 yrs Gender: Female : 1985 Patient Status: Inpatient Patient Location: [address] [place], [place] [address] Study Date: 04/27/2020 06:19 PM Height: 65 in Weight: 152 lb BSA: 1.8 m2 Procedure: A complete two-dimensional transthoracic echocardiogram was performed (2D, M-mode, spectral and color flow Doppler). The study was technically adequate with some images being suboptimal in quality. Reason For Study: elevated BNP. Lupus, EF asses. Nephrotic. poss HF Ordering Physician: BAMBI MORRISON Performed By: Alana Damon Interpretation Summary The left ventricle is grossly normal size. Left ventricular systolic function is normal. The Ejection Fraction estimate is 55-60%. Doppler measurements suggest impaired left ventricular relaxation, which is associated with grade I/IV or mild diastolic dysfunction. The left ventricular wall motion is normal. Moderate MR, mild to moderate AI, trace TR, moderate PI. Trace, hemodynamically insignificant anterior pericadial effusion. When compared to a prior study dated 10/17/18: -AI is now mild to moderate. -Diastolic dysfunction is now grade I. -Pulmonary pressure is now normal. -No regional wall motion abnormalities. MMode/2D Measurements & Calculations RVDd: 2.6 cm LVIDd: 4.7 cm FS: 31.1 % Ao root diam: IVSd: 0.98 cm LVIDs: 3.3 cm EDV(Teich): 3.3 cm 104.9 ml Ao root area: LVPWd: 1.1 cm ESV(Teich): 8.4 cm2 43.3 ml LA dimension: EF(Teich): 58.8 % 3.8 cm LVLd ap4: 7.9 cm SV(MOD-sp4): EDV(MOD-sp4): 85.0 ml 123.0 ml LVLs ap4: 6.4 cm ESV(MOD-sp4): 38.0 ml EF(MOD-sp4): 69.1 % Doppler Measurements & Calculations MV E max radha: MV P1/2t max radha: Ao V2 max: AI max radha: 143.8 cm/sec 162.9 cm/sec 167.2 cm/sec 514.3 cm/sec MV A max radha: MV P1/2t: 109.7 msec Ao max PG: AI max P.5 cm/sec MVA(P1/2t): 2.0 cm2 11.2 mmHg 105.8 mmHg MV E/A: 1.0 MV dec slope: AI dec slope: 248.4 cm/sec2 434.8 cm/sec2 AI P1/2t: MV dec time: 606.3 msec 0.31 sec LV V1 max PG: PA V2 max: PI end-d radha: TR max radha: 5.6 mmHg 97.7 cm/sec 194.1 cm/sec 224.0 cm/sec LV V1 max: PA max P.8 mmHg TR max P.5 cm/sec 20.1 mmHg AV P1/2t-pr_phl: MV P1/2t-pr_phl: 606.3 msec 109.7 msec Left Ventricle The left ventricle is grossly normal size. Left ventricular systolic function is normal. The Ejection Fraction estimate is 55-60%. Doppler measurements suggest impaired left ventricular relaxation, which is associated with grade I/IV or mild diastolic dysfunction. The left ventricular wall motion is normal. Right Ventricle The right ventricle is normal in size, thickness and function. The right ventricular systolic function is normal. Atria The right atrium is normal. The left atrial size is normal. Mitral Valve The mitral valve is grossly normal. There is no evidence of mitral valve prolapse. There is no mitral valve stenosis. There is a moderate amount of mitral regurgitation. Aortic Valve The aortic valve is grossly normal. There is no aortic valvular vegetation. There is no aortic valve stenosis. There is a mild to moderate amount of aortic regurgitation. Tricuspid Valve The tricuspid valve is not well visualized, but is grossly normal. There is no tricuspid valve prolapse. There is no tricuspid stenosis. There is a trace amount of tricuspid regurgitation. Pulmonic Valve The pulmonic valve is not well seen, but is grossly normal. There is no vegetation on the pulmonic valve. There is no pulmonic valvular stenosis. There is a moderate amount of pulmonic regurgitation. Effusions Minimal pericardial effusion. : BAMBI MORRISON Antonio
--- NOTE | 2020-04-27 20:55 | PDOC CONSULTATION ---
Consultation Consult Date: 04/27/20 Provider Consulted: EBONI DELANEY Consult reason:: LAMAR, Proteinuria, Edema History of Present Illness Admission Date/PCP: 04/26/20 22:38 KEHINDE FRANKLIN MD History of Present Illness: SON BELTRAN is a 34 year old female with history of lupus diagnosed when she was 17 years old, history of proteinuria, chronic kidney disease, and iron deficiency who was admitted yesterday because of progressively worsening bilateral lower extremity edema for the past 3 to 4 weeks associated with increasing abdominal distention, orthopnea and paroxysmal nocturnal dyspnea. Since 17 years old the patient has been treated for SLE starting in [place]. She related that she was treated with methotrexate which was ineffective so she was switched to CellCept. At age [age] years old she got so her CellCept was switched to Plaquenil. She was on Plaquenil since then. She has been following up with her local cut out machine operator, Dr. Bone but due to financial reasons she has not seen him since about a year ago. For the same reason she also has not been on any medications including her Plaquenil for about a year as well. Initial evaluation in the emergency room reveals elevated BUN of 47, creatinine of 2.3, potassium of 5.5 and bicarbonate of 20. Review of records revealed that in February 10, 2020 she had a BUN of 24, creatinine of 1.03. On January 15 she had a BUN of 36 and creatinine of 1.99 and on October 2019 she had a BUN of 18 and creatinine of 0.81. Her initial urinalysis showed greater than or equal to 500 mg of protein, small blood with 8 RBCs, moderate leukocyte esterase, WBC of 19 and hyaline casts of 18. Her urine protein to creatinine ratio is 18.65. She has low hemoglobin of 10.1 as well. Her iron is less than 10.1, ferritin of 27.9 and T sat cannot be calculated. She has elevated ESR of 75. Albumin is low at 2.0. Her lipid panel showed elevated triglycerides of 302, total cholesterol 233, LDL of 117 and HDL of 42. Her renal ultrasound normal size kidneys with the right at 12.58 cm and the left at 12.32 cm without any evidence of hydronephrosis but there is diffuse increased cortical echogenicity bilaterally. An echocardiogram in October 17, 2018 showed normal left ventricular ejection fraction of 70 to 75% and normal left ventricular diastolic function with mild septal wall hypokinesia at the time. In the emerg ency room she was given a dose of calcium gluconate and Kayexalate 15 g x 1 dose. Patient also presented with elevated blood pressure and since admission her blood pressure ranges anywhere between 146-187/89-113. She denies previous history of hypertension. Her urine output since admission has been 625 mL. Patient stated that she was told that she has some mild proteinuria in the past but is never been told that she has abnormal kidney function. 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 She denies any gross hematuria nor note of any foamy urine. She denies any flank pain. Claims that she drinks plenty of fluids. She states that about 3 years ago she has had an episode of pleurisy for which it is associated also with lower extremity edema and she was hospitalized at [facility] although that episode is not as bad as now. She denies any fever, cough, nausea, vomiting, abdominal pain, diarrhea nor constipation. Past Medical History Pulmonary Medical History: Reports: Asthma Renal/ Medical History: Reports: Chronic Kidney Disease Stage II, Proteinuria GI Medical History: Reports: Gastroesophageal Reflux Disease Musculoskeltal Medical History: Reports: Arthritis, Systemic Lupus Erythematosus Hematology Medical History: Reports Iron Deficiency Anemia Past Surgical History Past Surgical History: Reports: Section - x1, Tonsillectomy - tonsils and adenoids Social History Information Source: Patient Lives with: Family Smoking Status: Never Smoker Electronic Cigarette use?: No Frequency of Alcohol Use: None Hx Recreational Drug Use: No Drugs: None Hx Prescription Drug Abuse: No Family History Family History: CAD - Maternal grandmother, DM - Mother, Other - Lupus on her couisin and sister; Kawasaki disease on her brother Parental Family History Reviewed: Yes Children Family History Reviewed: Yes Sibling(s) Family History Reviewed.: Yes Medication/Allergy Home Medications: Cyanocobalamin (Vitamin B-12) [Vitamin B-12 1000 mcg Tablet] 1,000 mcg PO DAILY 04/27/20 Omeprazole 20 mg PO BID 04/27/20 Allergies/Adverse Reactions: No Known Allergies Allergy (Verified 04/26/20 16:26) Review of Systems All systems: reviewed and no additional remarkable complaints except as stated Review of Systems: Constitutional: ABSENT: chills, fatigue, fever(s), headache(s), weight gain, weight loss Eyes: ABSENT: visual disturbances Ears: ABSENT: hearing changes Cardiovascular: ABSENT: chest pain, dyspnea on exertion, palpitations; admits orthopnea and edema Respiratory: ABSENT: cough, dyspnea, hemoptysis Gastrointestinal: ABSENT: abdominal pain, constipation, diarrhea, hematemesis, hematochezia, nausea, vomiting; admits abdominal distention Genitourinary: ABSENT: dysuria, hematuria Musculoskeletal: ABSENT: joint swelling Integumentary: ABSENT: rash, wounds Neurological: ABSENT: abnormal gait, abnormal speech, confusion, dizziness, focal weakness, numbness, syncope Psychiatric: ABSENT: anxiety, depression Endocrine: ABSENT: cold intolerance, heat intolerance, polydipsia, polyuria Hematologic/Lymphatic: ABSENT: easy bleeding, easy bruising, lymphadenopathy Physical Exam Vital Signs: Temp Pulse Resp BP Pulse Ox 98.1 F 103 H 16 151/96 H 97 04/27/20 07:32 04/27/20 09:35 04/27/20 09:35 04/27/20 09:57 04/27/20 09:35 Intake & Output 04/26/20 04/27/20 04/28/20 06:59 06:59 06:59 Output Total 625 Balance -625 Weight 69.3 kg Exam: General appearance: No acute distress, cooperative, well-developed, well- nourished Head exam: PRESENT: atraumatic, normocephalic Eye exam: PRESENT: Conjunctiva pale, EOMI, PERRLA. ABSENT: conjunctival injection, scleral icterus Mouth exam: PRESENT: moist, neck supple, tongue midline Neck exam: PRESENT: full ROM. ABSENT: carotid bruit, JVD, lymphadenopathy, thyromegaly Respiratory exam: PRESENT: clear to auscultation bilaterally. ABSENT: rales, rhonchi, stridor, wheezes Cardiovascular exam: PRESENT: RRR, +S1, +S2. ABSENT: systolic murmur Pulses: PRESENT: normal radial pulses, normal dorsalis pedis pulses GI/Abdominal exam: PRESENT: normal bowel sounds, soft. Abdomen moderately distended with minimal subcutaneous edema ABSENT: guarding, mass, tenderness Rectal exam: Deferred Extremities exam: PRESENT: full ROM. Grade 2 bilateral lower extremity pitting edema extending ABSENT: calf tenderness Musculoskeletal: PRESENT: full ROM. ABSENT: deformity Neurological exam: PRESENT: alert, Awake, Oriented to person, Oriented to place, Oriented to time, reflexes normal, CN II-XII grossly intact. ABSENT: motor sensory deficit Psychiatric exam: PRESENT: appropriate affect, normal mood. ABSENT: homicidal ideation, suicidal ideation Skin exam: PRESENT: intact, dry, warm. ABSENT: rash Results Laboratory Results: 04/27/20 07:39 04/27/20 07:39 04/26/20 04/26/20 04/26/20 17:16 17:16 17:16 WBC 4.1 RBC 3.69 L Hgb 10.1 L Hct 31.1 L MCV 84 MCH 27.3 MCHC 32.3 RDW 14.5 H Plt Count 236 Seg Neutrophils % Not Reportable Retic Count (auto) Sodium 138.7 Potassium 5.5 H Chloride 115 H Carbon Dioxide 20 L Anion Gap 4 L BUN 47 H Creatinine 2.30 H Est GFR ( Amer) 30 L Glucose 86 Calcium 7.3 L Phosphorus Magnesium 2.4 H Total Bilirubin 0.3 AST 24 Alkaline Phosphatase 73 C-Reactive Protein Total Protein 5.6 L Albumin 2.1 L Triglycerides Cholesterol LDL Cholesterol Direct VLDL Cholesterol HDL Cholesterol Lipase 276.0 Serum HCG, Qual NEGATIVE Urine Color Urine Appearance Urine pH Ur Specific Ashley Urine Protein Urine Glucose (UA) Urine Ketones Urine Blood Urine Nitrite Ur Leukocyte Esterase Urine WBC (Auto) Urine RBC (Auto) Blood Type Antibody Screen 04/26/20 04/26/20 04/26/20 17:16 17:16 17:16 WBC RBC Hgb Hct MCV MCH MCHC RDW Plt Count Seg Neutrophils % Retic Count (auto) Sodium Potassium Chloride Carbon Dioxide Anion Gap BUN Creatinine Est GFR ( Amer) Glucose Calcium Phosphorus Magnesium Total Bilirubin AST Alkaline Phosphatase C-Reactive Protein Total Protein Albumin Triglycerides 302 H Cholesterol 233.02 H LDL Cholesterol Direct 117 H VLDL Cholesterol 60.4 H HDL Cholesterol 42 Lipase Serum HCG, Qual Urine Color YELLOW Urine Appearance CLOUDY Urine pH 6.0 Ur Specific Ashley 1.015 Urine Protein >=500 H Urine Glucose (UA) NEGATIVE Urine Ketones NEGATIVE Urine Blood SMALL H Urine Nitrite NEGATIVE Ur Leukocyte Esterase MODERATE H Urine WBC (Auto) 19 Urine RBC (Auto) 8 Blood Type A POSITIVE Antibody Screen NEGATIVE 04/26/20 04/27/20 04/27/20 17:16 00:45 07:39 WBC 3.7 L RBC 3.43 L Hgb 9.5 L Hct 28.6 L MCV 83 MCH 27.7 MCHC 33.2 RDW 14.6 H Plt Count 235 Seg Neutrophils % Not Reportable Retic Count (auto) Sodium 139.4 Potassium 4.8 Chloride 117 H Carbon Dioxide 17 L Anion Gap 5 BUN 44 H Creatinine 2.15 H Est GFR ( Amer) 32 L Glucose 152 H Calcium 7.8 L Phosphorus Magnesium Total Bilirubin AST Alkaline Phosphatase C-Reactive Protein 10.7 H Total Protein Albumin Triglycerides Cholesterol LDL Cholesterol Direct VLDL Cholesterol HDL Cholesterol Lipase Serum HCG, Qual Urine Color Urine Appearance Urine pH Ur Specific Ashley Urine Protein Urine Glucose (UA) Urine Ketones Urine Blood Urine Nitrite Ur Leukocyte Esterase Urine WBC (Auto) Urine RBC (Auto) Blood Type Antibody Screen 04/27/20 04/27/20 07:39 07:39 WBC RBC Hgb Hct MCV MCH MCHC RDW Plt Count Seg Neutrophils % Retic Count (auto) 1.41 Sodium 138.2 Potassium 5.4 H Chloride 116 H Carbon Dioxide 18 L Anion Gap 4 L BUN 41 H Creatinine 2.28 H Est GFR ( Amer) 30 L Glucose 117 H Calcium 7.6 L Phosphorus 5.2 H Magnesium 2.2 Total Bilirubin 0.2 AST 22 Alkaline Phosphatase 71 C-Reactive Protein Total Protein 5.6 L Albumin 2.0 L Triglycerides Cholesterol LDL Cholesterol Direct VLDL Cholesterol HDL Cholesterol Lipase Serum HCG, Qual Urine Color Urine Appearance Urine pH Ur Specific Ashley Urine Protein Urine Glucose (UA) Urine Ketones Urine Blood Urine Nitrite Ur Leukocyte Esterase Urine WBC (Auto) Urine RBC (Auto) Blood Type Antibody Screen 04/26/20 04/26/20 04/27/20 17:16 17:16 00:45 Creatine Kinase 83 Troponin I 0.037 0.045 NT-Pro-B Natriuret Pep [id number] H 04/27/20 07:39 Creatine Kinase Troponin I 0.048 NT-Pro-B Natriuret Pep Impressions: Chest X-Ray 04/26/20 16:31 IMPRESSION: Borderline heart size with no pulmonary edema. Small pleural effusions. Renal Ultrasound 04/27/20 21:50 IMPRESSION: There is no evidence of hydronephrosis. Trace free intraperitoneal fluid is seen. Both kidneys demonstrate increased cortical echogenicity, suggestive of chronic medical renal disease. Assessment & Plan - Diagnosis (1) Nephrotic syndrome Is this a current diagnosis for this admission?: Yes Plan: This is evident by nephrotic range proteinuria of 18.6, hypoalbuminemia, hyperlipidemia and anasarca. Patient has also minimal microhematuria with elevated sed rate. With a background history of lupus without treatment for almost a year there is very high likelihood that this is lupus nephritis unless proven otherwise. I will send further work-up including serologies related to lupus will also send for other work-up for glomerular disease and vasculitis including paraproteinemia to make sure nothing else is going on. To confirm diagnosis we would need a kidney biopsy. I discussed the procedure, benefits and risks of kidney biopsy with the patient. The risks includes, but not limited to bleeding, infection, and possible losing her kidney. Patient understood and consented to proceed. I will then try to schedule to have this done as soon as possible. If confirmed to have lupus nephritis, we will do induction treatment with pulse steroids and either MMF or IV Cytoxan subsequently. Meanwhile I agree with starting diuretics with Lasix currently at 40 mg every 12. Patient was also started on captopril which is ideal, however we have to monitor the patient's potassium and kidney function with current acute worsenin g. (2) Acute kidney injury superimposed on CKD Is this a current diagnosis for this admission?: Yes Plan: Acute worsening of the kidney function most likely related to the cause of her nephrotic syndrome again, as a stated above possibly lupus nephritis unless proven otherwise. Monitor kidney function and electrolytes. Avoid nephrotoxic medications and adjust therapy according to kidney function. (3) Hyperkalemia Is this a current diagnosis for this admission?: Yes Plan: Follow low potassium diet, may repeat giving Kayexalate or if potassium persisted to be high will consider Veltassa or Lokelma. (4) Hypertension Is this a current diagnosis for this admission?: Yes Plan: Captopril was already started. Lasix would also help blood pressure control. I would avoid hydralazine. May give IV labetalol for PRN medication and calcium channel blockers. (5) Metabolic acidosis Is this a current diagnosis for this admission?: Yes Plan: Sodium bicarbonate started. (6) Chronic iron deficiency anemia Is this a current diagnosis for this admission?: Yes Plan: Patient would need iron supplements. (7) Systemic lupus erythematosus Qualifiers: Systemic lupus erythematosus type: other Systemic lupus erythematosus organ involvement: glomerular disease Qualified Code(s): M32.14 - Glomerular disease in systemic lupus erythematosus Is this a current diagnosis for this admission?: Yes Plan: Agree with reinitiation of Plaquenil and currently on some steroids. (8) Hyperphosphatemia Is this a current diagnosis for this admission?: Yes Plan: Follow low phosphorus diet. - Notes Notes: Discussed with Dr. Degroot. Thank you very much for this consultation. - Time Time Spent with patient: Total time spent with patient today including coordination of care about 70 minutes.
[2020-04-27] MEDS: ATORVASTATIN CALCIUM 40 MG TABLET PO SCH (21:11)
[2020-04-27] MEDS: SODIUM BICARBONATE 650 MG TABLET PO SCH (21:11)
[2020-04-28] MEDS: PANTOPRAZOLE SODIUM 40 MG TABLET.DR PO SCH (05:18)
[2020-04-28] MEDS: METHYLPREDNISOLONE INJ 40 MG/1 ML SDV IV SCH (05:37)
[2020-04-28 06:09] LABS: ABSOLUTE LYMPHOCYTES (AUTO) 1.1 10^3/uL (0.5-4.7); ABSOLUTE MONOCYTES (AUTO) 0.7 10^3/uL (0.1-1.4); ABSOLUTE NEUT (AUTO) 3.9 10^3/uL (1.7-8.2); BASOPHILS % (AUTO) 0.3 % (0-2); HEMATOCRIT 26.6 % (36.0-47.0); HEMOGLOBIN 8.8 g/dL (12.0-15.5); LYMPHOCYTES % (AUTO) 18.6 % (13-45); MEAN CORPUSCULAR HEMOGLOBIN 27.4 pg (27.0-33.4); MEAN CORPUSCULAR HGB CONC 33.2 g/dL (32.0-36.0); MEAN CORPUSCULAR VOLUME 83 fl (80-97); MONOCYTES % (AUTO) 12.8 % (3-13); RED BLOOD COUNT 3.22 10^6/uL (3.72-5.28); SEGMENTED NEUTROPHILS % (AUTO) 68.3 % (42-78); TOTAL CELLS COUNTED % (AUTO) 100 %; WHITE BLOOD COUNT 5.7 10^3/uL (4.0-10.5)
[2020-04-28 06:36] LABS: BLOOD UREA NITROGEN 54 mg/dL (7-20); CALCIUM 7.5 mg/dL (8.4-10.2); GLUCOSE 127 mg/dL (75-110); PHOSPHORUS 6.9 mg/dL (2.5-4.5); POTASSIUM 5.9 mmol/L (3.6-5.0)
[2020-04-28 06:37] LABS: HEPATITS B SURFACE ANTIGEN Negative (Negative)
[2020-04-28 06:42] LABS: ANION GAP 5 (5-19); CARBON DIOXIDE 17 mmol/L (22-30); CHLORIDE 115 mmol/L (98-107)
[2020-04-28 07:00] LABS: HEPATITIS B CORE AB TOT Negative (Negative)
[2020-04-28 07:17] LABS: PLATELET COUNT 198 10^3/uL (150-450)
--- NOTE | 2020-04-28 09:03 | PDOC PROGRESS REPORT ---
Subjective Progress Note for:: 04/28/20 Subjective:: Patient states that she is feeling better. Swelling in her legs has improved. She is scheduled for kidney biopsy today and is currently NPO. Reason For Visit: HYPERKALEMIA,ACUTE CHF EXACERBATION,LAMAR, Physical Exam Vital Signs: Temp Pulse Resp BP Pulse Ox 97.6 F 60 16 183/101 H 100 04/28/20 07:32 04/28/20 07:32 04/28/20 07:32 04/28/20 07:32 04/28/20 07:32 Intake & Output 04/27/20 04/28/20 04/29/20 06:59 06:59 06:59 Intake Total 580 Output Total 625 1360 Balance -625 -780 Weight 69.3 kg 78.6 kg General appearance: PRESENT: no acute distress, well-developed, well-nourished Head exam: PRESENT: normocephalic Respiratory exam: PRESENT: unlabored Extremities exam: PRESENT: +1 edema Neurological exam: PRESENT: alert, awake, oriented to person, oriented to place, oriented to time, oriented to situation Psychiatric exam: PRESENT: appropriate affect Skin exam: PRESENT: normal color Results Laboratory Results: 04/28/20 05:09 04/28/20 05:09 04/27/20 04/27/20 04/27/20 07:39 07:39 07:39 WBC 3.7 L RBC 3.43 L Hgb 9.5 L Hct 28.6 L MCV 83 MCH 27.7 MCHC 33.2 RDW 14.6 H Plt Count 235 Seg Neutrophils % Retic Count (auto) 1.41 Sodium Potassium Chloride Carbon Dioxide Anion Gap BUN Creatinine Est GFR ( Amer) Glucose Calcium Phosphorus Iron TIBC Ferritin Vitamin B12 Folate TSH 1.58 04/27/20 04/27/20 04/28/20 07:39 16:00 05:09 WBC RBC Hgb Hct MCV MCH MCHC RDW Plt Count Seg Neutrophils % Retic Count (auto) Sodium 138.4 136.6 L Potassium 5.5 H 5.9 H Chloride 116 H 115 H Carbon Dioxide 17 L 17 L Anion Gap 5 5 BUN 45 H 54 H Creatinine 2.42 H 2.63 H Est GFR ( Amer) 28 L 25 L Glucose 179 H 127 H Calcium 7.7 L 7.5 L Phosphorus 6.9 H Iron < 10.1 L TIBC 158 L Ferritin 27.90 Vitamin B12 971.0 H Folate 17.30 TSH 04/28/20 05:09 WBC 5.7 RBC 3.22 L Hgb 8.8 L Hct 26.6 L MCV 83 MCH 27.4 MCHC 33.2 RDW 15.0 H Plt Count 198 Seg Neutrophils % 68.3 Retic Count (auto) Sodium Potassium Chloride Carbon Dioxide Anion Gap BUN Creatinine Est GFR ( Amer) Glucose Calcium Phosphorus Iron TIBC Ferritin Vitamin B12 Folate TSH 04/26/20 04/26/20 04/27/20 17:16 17:16 00:45 Creatine Kinase 83 Troponin I 0.037 0.045 NT-Pro-B Natriuret Pep [id number] H 04/27/20 07:39 Creatine Kinase Troponin I 0.048 NT-Pro-B Natriuret Pep Impressions: Chest X-Ray 04/26/20 16:31 IMPRESSION: Borderline heart size with no pulmonary edema. Small pleural effusions. Renal Ultrasound 04/27/20 21:50 IMPRESSION: There is no evidence of hydronephrosis. Trace free intraperitoneal fluid is seen. Both kidneys demonstrate increased cortical echogenicity, suggestive of chronic medical renal disease. Assessment & Plan - Diagnosis (1) Chronic iron deficiency anemia Is this a current diagnosis for this admission?: Yes Plan: I will stop the PO iron, as if she does have an ulcer, this would be contraindicated. Agree with the IV iron. I believe GI workup to find source of blood loss should occur in addition to the renal work-up. - Time Time Spent with patient: Less than 15 minutes - Plan Summary Plan Summary: Patient was discussed with Dr. Underwood.
--- NOTE | 2020-04-28 09:31 | PDOC PROGRESS REPORT ---
Subjective Progress Note for:: 04/28/20 Subjective:: SON BELTRAN is a 34 year old female past medical history untreated lupus erythematosus, chronic iron deficiency anemia, CKD, presenting to ED complaining of progressively worsening bilateral lower extremity edema, abdominal distention, orthopnea and paroxysmal nocturnal dyspnea for the last several weeks. She used to take methotrexate however was stopped at it was not working for her, she was switched to Plaquenil but unfortunately she had to stop taking it as she could not see a technical buyer due to financial reason and did not have a prescription for Plaquenil, she was taking prednisone which she states was recently stopped stopped as to see if her chronic iron deficiency anemia was caused due to stomach ulcer caused by chronic prednisone intake. About 3 to 4 weeks ago patient started noticing abdominal distention, bilateral lower extremity swelling extending proximally to her thighs and recently patient has been experiencing orthopnea and paroxysmal nocturnal dyspnea. Patient denies any cloudy urine, decrease in urine output, dysuria, hematuria, patient is to drink excessive fluid as it was feels thirsty, denies ingesting any nephrotoxic medication, any history of CAD or CHF, denies any history of hypertension, denies any IV drug abuse. Denies any oral, genital or skin rash, denies any joint pain or swelling. In ED she was noted to be hypertensive, tachypneic, hyperkalemia, elevated creatinine, elevated troponin, elevated proBNP, positive leukocyte esterase and excessive proteinuria, chest x-ray was negative for any acute abnormalities. Hospitalist consulted for admission. 04/28/2020. No acute events overnight. Patient reporting improvement of her lower extremity edema, orthopnea paroxysmal nocturnal dyspnea, denies any chest pain, nausea, vomiting, diarrhea, constipation or any urinary symptoms. Patient has been started on iron transfusion by oncology, and is pending for renal biopsy ordered by nephrology. Reason For Visit: HYPERKALEMIA,ACUTE CHF EXACERBATION,LAMAR, Physical Exam Vital Signs: Temp Pulse Resp BP Pulse Ox 97.6 F 60 16 183/101 H 100 04/28/20 07:32 04/28/20 07:32 04/28/20 07:32 04/28/20 07:32 04/28/20 07:32 Intake & Output 04/27/20 04/28/20 04/29/20 06:59 06:59 06:59 Intake Total 580 Output Total 625 1360 Balance -625 -780 Weight 69.3 kg 78.6 kg General appearance: PRESENT: no acute distress, obese, well-developed, well-nourished Respiratory exam: PRESENT: crackles. ABSENT: rales, rhonchi, wheezes Cardiovascular exam: PRESENT: RRR. ABSENT: diastolic murmur, rubs, systolic murmur GI/Abdominal exam: PRESENT: distended, normal bowel sounds, soft. ABSENT: guarding, mass, organolmegaly, rebound, tenderness Extremities exam: PRESENT: full ROM, +2 edema. ABSENT: calf tenderness, clubbing, pedal edema Neurological exam: PRESENT: alert, awake, oriented to person, oriented to place, oriented to time, oriented to situation, CN II-XII grossly intact. ABSENT: motor sensory deficit Results Laboratory Results: 04/28/20 05:09 04/28/20 05:09 04/27/20 04/27/20 04/27/20 07:39 07:39 16:00 WBC RBC Hgb Hct MCV MCH MCHC RDW Plt Count Seg Neutrophils % Sodium 138.4 Potassium 5.5 H Chloride 116 H Carbon Dioxide 17 L Anion Gap 5 BUN 45 H Creatinine 2.42 H Est GFR ( Amer) 28 L Glucose 179 H Calcium 7.7 L Phosphorus Iron < 10.1 L TIBC 158 L Ferritin 27.90 Vitamin B12 971.0 H Folate 17.30 TSH 1.58 04/28/20 04/28/20 05:09 05:09 WBC 5.7 RBC 3.22 L Hgb 8.8 L Hct 26.6 L MCV 83 MCH 27.4 MCHC 33.2 RDW 15.0 H Plt Count 198 Seg Neutrophils % 68.3 Sodium 136.6 L Potassium 5.9 H Chloride 115 H Carbon Dioxide 17 L Anion Gap 5 BUN 54 H Creatinine 2.63 H Est GFR ( Amer) 25 L Glucose 127 H Calcium 7.5 L Phosphorus 6.9 H Iron TIBC Ferritin Vitamin B12 Folate TSH 04/26/20 04/26/20 04/27/20 17:16 17:16 00:45 Creatine Kinase 83 Troponin I 0.037 0.045 NT-Pro-B Natriuret Pep 53980 H 04/27/20 07:39 Creatine Kinase Troponin I 0.048 NT-Pro-B Natriuret Pep Impressions: Chest X-Ray 04/26/20 16:31 IMPRESSION: Borderline heart size with no pulmonary edema. Small pleural effusions. Renal Ultrasound 04/27/20 21:50 IMPRESSION: There is no evidence of hydronephrosis. Trace free intraperitoneal fluid is seen. Both kidneys demonstrate increased cortical echogenicity, suggestive of chronic medical renal disease. Assessment and Plan - Diagnosis (1) Proteinuria Qualifiers: Proteinuria type: unspecified Qualified Code(s): R80.9 - Proteinuria, unspecified Is this a current diagnosis for this admission?: Yes Plan: Nephrotic range proteinuria, random urine to creatinine positive for proteinuria of about 19 g/day. Also has significant hyperlipidemia and hypertension and hypoalbuminemia. 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 Pending 24-hour urine protein quantification. Pending kidney biopsy. Pending SPEP/ABELARDO. Continue treating underlying SLE, continue IV steroids. (2) Acute congestive heart failure Qualifiers: Heart failure type: diastolic Qualified Code(s): I50.31 - Acute diastolic (congestive) heart failure Is this a current diagnosis for this admission?: Yes Plan: Improving. SPO2 WNL on RA. Still has bilateral lower extremity edema. 2D echo 04/27/2020, positive for left ventricular ejection fraction of 55 to 60% and mild diastolic dysfunction. 2D echo 09/2018 showed normal left heart systolic and diastolic function but did show a moderate MR and mild pulmonary hypertension. Denies any history of CAD this most likely due to underlying fluid overload state and elevated BNP are likely secondary to nephrotic syndrome more so than heart failure. Monitor volume status, IV diuretics, strict in and out, cardiac diet. (3) Acute kidney injury superimposed on CKD Is this a current diagnosis for this admission?: Yes Plan: Improving, still has metabolic acidosis and hyperkalemia, nonoliguric. Renal ultrasound indicating of chronic renal disease. Plan as problem #1. (4) Systemic lupus erythematosus Qualifiers: Systemic lupus erythematosus type: other Systemic lupus erythematosus organ involvement: glomerular disease Qualified Code(s): M32.14 - Glomerular disease in systemic lupus erythematosus Is this a current diagnosis for this admission?: Yes Plan: History of untreated lupus erythematosus. Patient used to take methotrexate but was stopped by her technical buyer Dr. Bone as it was not working. Patient was taking Plaquenil but unfortunately stopped a year ago due to financial reasons. Patient was on steroids but it was stopped recently to see if her chronic iron deficiency anemia was caused by stomach ulcer due to chronic steroid intake. Continue Plaquenil, IV Solu-Medrol. Pending C3, C4, [id number] DNA. Consult case management for possible assisting with medication. Unfortunately no rheumatology consult available at [facility]. Nephrology on board. Recommendations noted. (5) Chronic iron deficiency anemia Is this a current diagnosis for this admission?: Yes Plan: Severely iron deficient. On chronic iron transfusion. Currently scheduled to receive Venofer for 3 days. Pending guaiac, if positive will consult surgery for possible endoscopy. (6) Metabolic acidosis Is this a current diagnosis for this admission?: Yes Plan: Most likely due to LAMAR and CKD. Continue sodium bicarbonate. Daily BMP. Monitor vitals. (7) Hyperkalemia Is this a current diagnosis for this admission?: Yes Plan: Persistent hyperkalemia, likely secondary to renal failure. No acute EKG changes. Hyperkalemia protocol. BMP tomorrow. (8) Hypertension Is this a current diagnosis for this admission?: Yes Plan: Not optimized. Significant hypervolemia. Likely Constellation of renal failure. Currently on captopril, Lasix, PRN IV hydralazine and labetalol. Monitor renal function, uptitrate captopril if possible. (9) Anasarca Is this a current diagnosis for this admission?: Yes Plan: Moderate improvement. Plan as above. - Time Time Spent with patient: 35 or more minutes Medications reviewed and adjusted accordingly: Yes Anticipated Discharge Disposition: Home with Home Health Anticipated Discharge Timeframe: within 72 hours
[2020-04-28] MEDS: INSULIN LISPRO 100 UNIT/ML 3 ML VIAL SUBCUT SCH ×4 (09:47→21:23)
[2020-04-28] MEDS: FUROSEMIDE INJ/PF 20 MG/2 ML SDV IV SCH ×2 (09:51→17:48)
[2020-04-28] MEDS: CAPTOPRIL 12.5 MG TABLET PO SCH (09:51)
[2020-04-28] MEDS ORDERED: CAPTOPRIL 12.5 MG TABLET PO SCH (10:00)
[2020-04-28] MEDS ORDERED: CALCIUM GLUCONATE 1000 MG/10 ML INJ IV ONE (10:00)
[2020-04-28] MEDS ORDERED: FERROUS SULFATE 325 MG TABLET PO SCH (10:00)
[2020-04-28] MEDS ORDERED: SODIUM POLYSTYRENE SULFONATE 15 GM/60 ML PO ONE (10:00)
[2020-04-28] MEDS: HYDRALAZINE HCL INJ/PF 20 MG/1 ML SDV IV PRN ×2 (10:18→20:23)
[2020-04-28 10:52] LABS: URINE CREATININE 58.6 mg/dL (16-327)
[2020-04-28] MEDS: CYANOCOBALAMIN (VITAMIN B-12) 1,000 MCG TABLET PO SCH (11:03)
[2020-04-28] MEDS: SODIUM BICARBONATE 650 MG TABLET PO SCH ×2 (11:03→21:24)
[2020-04-28] MEDS ORDERED: FENTANYL CITRATE INJ/PF 100 MCG/2 ML AMPUL ONE (11:58)
[2020-04-28] MEDS ORDERED: MIDAZOLAM 2 MG/2 ML INJ ONE (11:58)
--- NOTE | 2020-04-28 12:33 | PDOC PROGRESS REPORT ---
Subjective Progress Note for:: 04/28/20 Subjective:: Patient is feeling fine and has no complaints. I saw her prior to going to kidney biopsy by the interventional radiologist. Her blood pressure has been elevated and uncontrolled. She is making some urine and is in negative fluid balance of 780 for the past 24 hours. She feels like her swelling is improving though. Reason For Visit: HYPERKALEMIA,ACUTE CHF EXACERBATION,LAMAR, Physical Exam Vital Signs: Temp Pulse Resp BP Pulse Ox 98.1 F 63 14 156/93 H 99 04/28/20 11:31 04/28/20 11:31 04/28/20 11:31 04/28/20 11:31 04/28/20 11:31 Intake & Output 04/27/20 04/28/20 04/29/20 06:59 06:59 06:59 Intake Total 580 Output Total 625 1360 Balance -625 -780 Weight 69.3 kg 78.6 kg Exam: General appearance: PRESENT: no acute distress, cooperative, well-developed, well-nourished Head exam: PRESENT: atraumatic, normocephalic Eye exam: PRESENT: conjunctiva slightly pale, PERRLA. ABSENT: scleral icterus Neck exam: ABSENT: JVD Respiratory exam: PRESENT: Normal breath sounds. ABSENT: crackles, rales, rho nchi, unlabored, wheezes Cardiovascular exam: PRESENT: Regular rate rhythm -+S1, +S2. ABSENT: diastolic murmur, systolic murmur GI/Abdominal exam: PRESENT: normal bowel sounds, soft. Mild to moderate abdominal distention ABSENT: guarding, mass, tenderness Extremities exam: Grade 2 bilateral lower extremity pitting edema up to her thighs Neurological exam: PRESENT: alert, awake, oriented to person, place and time. Skin exam: PRESENT: dry, warm, Results Laboratory Results: 04/28/20 05:09 04/28/20 05:09 04/27/20 04/27/20 04/27/20 07:39 09:40 16:00 WBC RBC Hgb Hct MCV MCH MCHC RDW Plt Count Seg Neutrophils % Sodium 138.4 Potassium 5.5 H Chloride 116 H Carbon Dioxide 17 L Anion Gap 5 BUN 45 H Creatinine 2.42 H Est GFR ( Amer) 28 L Glucose 179 H Calcium 7.7 L Phosphorus Iron < 10.1 L TIBC 158 L Ferritin 27.90 Vitamin B12 971.0 H Folate 17.30 Ur 24 Hour Volume 1160 04/28/20 04/28/20 05:09 05:09 WBC 5.7 RBC 3.22 L Hgb 8.8 L Hct 26.6 L MCV 83 MCH 27.4 MCHC 33.2 RDW 15.0 H Plt Count 198 Seg Neutrophils % 68.3 Sodium 136.6 L Potassium 5.9 H Chloride 115 H Carbon Dioxide 17 L Anion Gap 5 BUN 54 H Creatinine 2.63 H Est GFR ( Amer) 25 L Glucose 127 H Calcium 7.5 L Phosphorus 6.9 H Iron TIBC Ferritin Vitamin B12 Folate Ur 24 Hour Volume 04/26/20 04/26/20 04/27/20 17:16 17:16 00:45 Creatine Kinase 83 Troponin I 0.037 0.045 NT-Pro-B Natriuret Pep 25219 H 04/27/20 07:39 Creatine Kinase Troponin I 0.048 NT-Pro-B Natriuret Pep Impressions: Chest X-Ray 04/26/20 16:31 IMPRESSION: Borderline heart size with no pulmonary edema. Small pleural effusions. Renal Ultrasound 04/27/20 21:50 IMPRESSION: There is no evidence of hydronephrosis. Trace free intraperitoneal fluid is seen. Both kidneys demonstrate increased cortical echogenicity, suggestive of chronic medical renal disease. Assessment & Plan - Diagnosis (1) Nephrotic syndrome Is this a current diagnosis for this admission?: Yes Plan: This is evident by nephrotic range proteinuria of 18.6, hypoalbuminemia, hyperlipidemia and anasarca. Patient has also minimal microhematuria with elevated sed rate. With a background history of lupus without treatment for almost a year there is very high likelihood that this is lupus nephritis unless proven otherwise. I will send further work-up including serologies related to lupus will also send for other work-up for glomerular disease and vasculitis including paraproteinemia to make sure nothing else is going on. So far all the se rologies are still currently pending To confirm diagnosis we would need a kidney biopsy. I discussed the procedure, benefits and risks of kidney biopsy with the patient yesterday. The risks includes, but not limited to bleeding, infection, and possible losing her kidney. Patient understood and consented to proceed. She is a scheduled to have her biopsy today. After the biopsy I will start her with pulse methylprednisolone at 1 g daily for the next 3 days. Depending on the biopsy results, will probably need to add another immunosuppressive medications at her [facility] or Cytoxan. Continue the same Lasix of 40 mg IV every 12 hours. I will change her captopril to a more longer acting ISADORA inhibitor, lisinopril. (2) Acute kidney injury superimposed on CKD Is this a current diagnosis for this admission?: Yes Plan: Acute worsening of the kidney function most likely related to the cause of her nephrotic syndrome again, as a stated above possibly lupus nephritis unless proven otherwise. Monitor kidney function and electrolytes. Avoid nephrotoxic medications and adjust therapy according to kidney function. (3) Hyperkalemia Is this a current diagnosis for this admission?: Yes Plan: Follow low potassium diet, may repeat giving Kayexalate or if potassium persisted to be high will consider Veltassa or Lokelma. (4) Hypertension Is this a current diagnosis for this admission?: Yes Plan: Continue Lasix. Change captopril to lisinopril. Start amlodipine. Continue as needed medications including IV labetalol and IV hydralazine. (5) Metabolic acidosis Is this a current diagnosis for this admission?: Yes Plan: Sodium bicarbonate started. (6) Chronic iron deficiency anemia Is this a current diagnosis for this admission?: Yes Plan: Patient would need iron supplements. Patient started on IV Venofer. Probably warrant GI work-up for chronic iron deficiency. (7) Systemic lupus erythematosus Qualifiers: Systemic lupus erythematosus type: other Systemic lupus erythematosus organ involvement: glomerular disease Qualified Code(s): M32.14 - Glomerular disease in systemic lupus erythematosus Is this a current diagnosis for this admission?: Yes Plan: Agree with reinitiation of Plaquenil and currently on steroids. (8) Hyperphosphatemia Is this a current diagnosis for this admission?: Yes Plan: Follow low phosphorus diet. - Notes Notes: Discussed plan with Dr. Curry and the patient's nurse today. - Time Time with patient: Greater than 35 minutes
[2020-04-28 12:59] LABS: URINE PROTEIN 411.5 mg/dL (<12)
[2020-04-28 13:00] LABS: GLOMERULAR BASMENT MEMBRANE AB 4 units (0-20)
[2020-04-28] MEDS ORDERED: HYDRALAZINE HCL INJ/PF 20 MG/1 ML SDV IV ONE (13:00)
[2020-04-28 13:03] LABS: 24 HOUR URINE PROTEIN RESULT 4773 mg/day (42-225)
--- NOTE | 2020-04-28 13:22 | RADIOLOGY REPORT (SQ) ---
EXAM DESCRIPTION: CT BIOPSY RENAL; CT NEEDLE PLACEMENT IMAGES COMPLETED DATE/TIME: 04/28/2020 12:59 pm REASON FOR STUDY: Nehrotic Syndrome, Lupus; RENAL BIOPSY COMPARISON: None. FLUORO TIME: 7.3 seconds. 150 images submitted to PACS. LIMITATIONS: None. PROCEDURE: The procedure, risks, benefits, and alternatives were discussed with the patient in the p reprocedural area, and all questions were answered. Informed consent was obtained verbally and in wri ting. The patient was then brought to the CT suite, positioned prone on the CT gurney, and a time-out was p erformed. After that, axial images of the abdomen were obtained for targeting of the lower pole of t he left kidney. Based on review of the axial images an appropriate access site was selected on the s kin. The area around selected access site was then prepped and draped with 2% chlorhexidine utilizing briana dard sterile technique. After that, the access site was infiltrated with 1% lidocaine and an incisio n was made in the skin with a #11 blade. A 17 gauge coaxial needle was then advanced through the skin incision and into the lower pole of the left kidney utilizing CT fluoroscopic guidance. After that, the inner stylet of the coaxial needle was removed and 3 18 gauge core samples were obtained - the sa mples were collected and submitted to cytopathology in formalin. Then, as coaxial needle was removed, the biopsy track was embolized with Gelfoam. After the coaxial needle was removed axial images of the abdomen were repeated and reviewed ; the images demonstrated n o acute biopsy-related complication. The patient tolerated the procedure well without immediate complication. At the end of the procedure the patient's condition was unchanged from the preprocedural baseline. IV conscious sedation was administered at the direction of the performing physician by a aura graff. 1 milligrams of Versed and 50 micrograms of fentanyl. Physiologic monitoring was provided befor e, during, and after sedation. The total sedation time was 30 minutes. Documentation of vtrt-ad-bcol time the performing proceduralist spent monitoring the patient: 15 min utes. IMPRESSION: Successful CT-guided biopsy of the lower pole of the left kidney as detailed above. COMMENT: Patient medication list reviewed: Yes- Quality ID# 130:Eligible professional attests to doc umenting in the medical record they obtained, updated, or reviewed the patient's current medications. Quality ID #76: The patient was prepped and draped using maximum sterile barrier technique including cap, mask, sterile gown, sterile gloves, a large sterile sheet, hand hygiene, and 2% Chlorhexidine fo r cutaneous antisepsis. When ultrasound is used, sterile ultrasound techniques are followed requiring sterile gel and sterile probes. Quality ID 145: Final reports for procedures using fluoroscopy that document radiation exposure katelyn hubert, or exposure time and number of fluorographic images (if radiation exposure indices are not avail able) Quality ID# 436: Final reports with documentation of one or more dose reduction techniques (e.g., Aut omated exposure control, adjustment of the mA and/or kV according to patient size, use of iterative r econstruction technique) TECHNICAL DOCUMENTATION: JOB ID: [id number] 2010 [employer]- All Rights Reserved Reading location - IP/workstation name: [email or web address]
[2020-04-28] MEDS: HYDROXYCHLOROQUINE SULFATE 200 MG TABLET PO SCH ×2 (13:28→17:48)
[2020-04-28] MEDS: AMLODIPINE BESYLATE 5 MG TABLET PO SCH (13:28)
[2020-04-28] MEDS: LISINOPRIL 10 MG TABLET PO SCH (13:28)
[2020-04-28] MEDS ORDERED: SODIUM POLYSTYRENE SULFONATE 15 GM/60 ML ONE (13:30)
[2020-04-28 13:37] LABS: ANTINUCLEAR ANTIBODIES Positive (Negative); SJOGREN'S ANTI-SS-B AB <0.2 AI (0.0-0.9); SJOGREN'S SS-A ANTIBODY 0.2 AI (0.0-0.9); SMITH AB ANA >8.0 AI (0.0-0.9)
[2020-04-28 13:50] LABS: CREATININE 2.63 mg/dL (0.52-1.25); URINE CREATININE 58.6 mg/dL (16-327)
[2020-04-28 14:20] LABS: DNA DOUBLE STRAND ANTIBODY ANA >300 IU/mL (0-9)
[2020-04-28 15:37] LABS: COMPLEMENT C4 3 mg/dL (14-44)
[2020-04-28] MEDS: METHYLPREDNISOLONE SOD SUCC 1,000 MG in DEXTROSE 5%-WATER 100 ML IV SCH (16:43)
[2020-04-28 17:37] LABS: COMPLEMENT C3 35 mg/dL (82-167)
[2020-04-28] MEDS: IRON SUCROSE COMPLEX 300 MG in NORMAL SALINE 250 ML IV SCH (17:48)
[2020-04-28] MEDS: ATORVASTATIN CALCIUM 40 MG TABLET PO SCH (21:24)
[2020-04-28 21:38] LABS: ANION GAP 13 (5-19); BLOOD UREA NITROGEN 54 mg/dL (7-20); CARBON DIOXIDE 13 mmol/L (22-30); CHLORIDE 115 mmol/L (98-107); GLUCOSE 200 mg/dL (75-110); POTASSIUM 5.3 mmol/L (3.6-5.0)
[2020-04-28] MEDS ORDERED: CAPTOPRIL 25 MG TABLET PO SCH (22:00)
[2020-04-29] MEDS: PANTOPRAZOLE SODIUM 40 MG TABLET.DR PO SCH (06:12)
[2020-04-29 06:25] LABS: HEMATOCRIT 25.9 % (36.0-47.0); HEMOGLOBIN 8.8 g/dL (12.0-15.5); MEAN CORPUSCULAR HEMOGLOBIN 27.6 pg (27.0-33.4); MEAN CORPUSCULAR HGB CONC 33.8 g/dL (32.0-36.0); MEAN CORPUSCULAR VOLUME 82 fl (80-97); PLATELET COUNT 189 10^3/uL (150-450); RED BLOOD COUNT 3.17 10^6/uL (3.72-5.28); RED CELL DISTRIBUTION WIDTH 15.2 % (11.5-14.0); WHITE BLOOD COUNT 7.2 10^3/uL (4.0-10.5)
[2020-04-29 06:44] LABS: ANION GAP 8 (5-19); BLOOD UREA NITROGEN 63 mg/dL (7-20); CALCIUM 7.6 mg/dL (8.4-10.2); CARBON DIOXIDE 17 mmol/L (22-30); CHLORIDE 115 mmol/L (98-107); GLUCOSE 153 mg/dL (75-110); PHOSPHORUS 7.4 mg/dL (2.5-4.5); POTASSIUM 5.2 mmol/L (3.6-5.0)
--- NOTE | 2020-04-29 07:41 | PDOC PROGRESS REPORT ---
Subjective Progress Note for:: 04/29/20 Subjective:: Patient states she is feeling ramona.r Anxious to get a shower after the biopsy yesterday. She has received 2/3 doses of IV iron without any reactions. Reason For Visit: HYPERKALEMIA,ACUTE CHF EXACERBATION,LAMAR, Physical Exam Vital Signs: Temp Pulse Resp BP Pulse Ox 97.7 F 83 16 101/71 99 04/29/20 03:56 04/29/20 07:00 04/29/20 03:56 04/29/20 03:56 04/29/20 03:56 Intake & Output 04/28/20 04/29/20 04/30/20 06:59 06:59 06:59 Intake Total 845 685 Output Total 1360 1425 Balance -515 -740 Weight 78.6 kg 75.2 kg General appearance: PRESENT: no acute distress Head exam: PRESENT: normocephalic Respiratory exam: PRESENT: unlabored Musculoskeletal exam: PRESENT: ambulatory Neurological exam: PRESENT: alert, awake Skin exam: PRESENT: normal color Results Laboratory Results: 04/29/20 05:32 04/29/20 05:32 04/27/20 04/27/20 04/27/20 09:40 09:40 09:40 WBC RBC Hgb Hct MCV MCH MCHC RDW Plt Count Sodium Potassium Chloride Carbon Dioxide Anion Gap BUN Creatinine Est GFR ( Amer) Glucose Calcium Phosphorus Magnesium Ur 24 Hour Volume 1160 1160 1160 Ur Total Protein 24 Hr 4773 H Stool Occult Blood 04/28/20 04/28/20 04/29/20 19:19 21:16 05:32 WBC 7.2 RBC 3.17 L Hgb 8.8 L Hct 25.9 L MCV 82 MCH 27.6 MCHC 33.8 RDW 15.2 H Plt Count 189 Sodium 140.8 Potassium 5.3 H Chloride 115 H Carbon Dioxide 13 L Anion Gap 13 BUN 54 H Creatinine 2.70 H Est GFR ( Amer) 25 L Glucose 200 H Calcium 8.0 L Phosphorus Magnesium Ur 24 Hour Volume Ur Total Protein 24 Hr Stool Occult Blood NEGATIVE 04/29/20 05:32 WBC RBC Hgb Hct MCV MCH MCHC RDW Plt Count Sodium 139.5 Potassium 5.2 H Chloride 115 H Carbon Dioxide 17 L Anion Gap 8 BUN 63 H Creatinine 2.83 H Est GFR ( Amer) 23 L Glucose 153 H Calcium 7.6 L Phosphorus 7.4 H Magnesium 2.4 H Ur 24 Hour Volume Ur Total Protein 24 Hr Stool Occult Blood 04/26/20 04/26/20 04/27/20 17:16 17:16 00:45 Creatine Kinase 83 Troponin I 0.037 0.045 NT-Pro-B Natriuret Pep 68175 H 04/27/20 07:39 Creatine Kinase Troponin I 0.048 NT-Pro-B Natriuret Pep Impressions: Chest X-Ray 04/26/20 16:31 IMPRESSION: Borderline heart size with no pulmonary edema. Small pleural e ffusions. Renal Ultrasound 04/27/20 21:50 IMPRESSION: There is no evidence of hydronephrosis. Trace free intraperitoneal fluid is seen. Both kidneys demonstrate increased cortical echogenicity, suggestive of chronic medical renal disease. Guidance Needle Placement CT 04/28/20 00:00 IMPRESSION: Successful CT-guided biopsy of the lower pole of the left kidney as detailed above. Renal Biopsy CT 04/28/20 00:00 IMPRESSION: Successful CT-guided biopsy of the lower pole of the left kidney as detailed above. Assessment & Plan - Diagnosis (1) Chronic iron deficiency anemia Is this a current diagnosis for this admission?: Yes Plan: Her current recommended dose of IV iron is 6504-5380 mg. 900 mg has been ordered thus far. She may receive a larger dose prior to discharge (can be given as a single bolus) or I am happy to arrange for the remainder as an outpatient. - Time Time Spent with patient: Less than 15 minutes - Plan Summary Plan Summary: Dr. Canales will be covering until 05/04/20. Please call with any concerns.
[2020-04-29] MEDS: INSULIN LISPRO 100 UNIT/ML 3 ML VIAL SUBCUT SCH ×4 (09:09→22:50)
[2020-04-29] MEDS: SODIUM BICARBONATE 650 MG TABLET PO SCH ×2 (09:15→22:50)
[2020-04-29] MEDS: AMLODIPINE BESYLATE 5 MG TABLET PO SCH (09:15)
[2020-04-29] MEDS: HYDROXYCHLOROQUINE SULFATE 200 MG TABLET PO SCH ×2 (09:15→17:12)
[2020-04-29] MEDS: CYANOCOBALAMIN (VITAMIN B-12) 1,000 MCG TABLET PO SCH (09:15)
[2020-04-29] MEDS: FUROSEMIDE INJ/PF 20 MG/2 ML SDV IV SCH (09:16)
[2020-04-29] MEDS: LISINOPRIL 10 MG TABLET PO SCH (09:16)
[2020-04-29 09:27] LABS: HEPATITIS C VIRUS RNA QUAL NAA Negative (Negative)
[2020-04-29] MEDS ORDERED: AMLODIPINE BESYLATE 5 MG TABLET PO SCH (10:00)
[2020-04-29] MEDS ORDERED: PROMETHAZINE HCL INJ 25 MG/1 ML VIAL IV PRN (13:00)
[2020-04-29] MEDS: HYDRALAZINE HCL INJ/PF 20 MG/1 ML SDV IV PRN (16:45)
--- NOTE | 2020-04-29 16:46 | PDOC PROGRESS REPORT ---
Subjective Progress Note for:: 04/29/20 Subjective:: 34 year old female with past medical history of untreated lupus erythematosus, chronic iron deficiency anemia, CKD, who p/w progressively worsening edema. She used to take methotrexate however was stopped at it was not working for her, she was switched to Plaquenil but unfortunately she had to stop taking it as she could not see a celebrity chef entrepreneur media personality due to financial reason and did not have a prescription for Plaquenil, she was taking prednisone which she states was re cently stopped as to see if her chronic iron deficiency anemia was caused due to stomach ulcer caused by chronic prednisone intake. About 3 to 4 weeks ago patient started noticing abdominal distention, bilateral lower extremity swelling extending proximally to her thighs and bilateral diffuse hand swelling. Denies any oral, genital or skin rash, denies any joint pain or swelling. In ED she was noted to be hypertensive, tachypneic, hyperkalemia, elevated creatinine, elevated troponin, elevated proBNP, positive leukocyte esterase and excessive proteinuria. Nephrology was consulted due to concern for lupus nephritis, and she underwent IR-guided kidney biopsy on 04/28/2020. She was subsequently started on pulse steroids x3 days. Awaiting pathology report from kidney biopsy. No acute events overnight. Patient reporting improvement of her lower extremity edema. Reason For Visit: anasarca due to lupus nephritis Physical Exam Vital Signs: Temp Pulse Resp BP Pulse Ox 97.4 F 69 16 161/92 H 100 04/29/20 14:53 04/29/20 14:53 04/29/20 14:53 04/29/20 14:53 04/29/20 14:53 Intake & Output 04/28/20 04/29/20 04/30/20 06:59 06:59 06:59 Intake Total 845 685 Output Total 1360 1425 Balance -515 -740 Weight 78.6 kg 75.2 kg Additional comments: General: appears well, good spirits Head: normocephalic, atraumatic Eyes: anicteric sclera ENT: moist mucus memranes, no oropharyngeal erythema/exudate Neck: no lymphadenopathy Lungs: clear to auscultation bilaterally Heart: regular rate and rhythm, no murmurs/rubs/gallops Abdomen: normoactive bowel sounds, soft, non-tender, non-distended : no CVA tenderness, no suprapubic tenderness Extremities: warm and well perfused, 2+ BLE pitting edema Vascular: 2+ peripheral pulses in all extremities Neuro: A&Ox3 Skin: no rash Results Laboratory Results: 04/29/20 05:32 04/29/20 05:32 04/28/20 04/28/20 04/29/20 19:19 21:16 05:32 WBC 7.2 RBC 3.17 L Hgb 8.8 L Hct 25.9 L MCV 82 MCH 27.6 MCHC 33.8 RDW 15.2 H Plt Count 189 Sodium 140.8 Potassium 5.3 H Chloride 115 H Carbon Dioxide 13 L Anion Gap 13 BUN 54 H Creatinine 2.70 H Est GFR ( Amer) 25 L Glucose 200 H Calcium 8.0 L Phosphorus Magnesium Stool Occult Blood NEGATIVE 04/29/20 05:32 WBC RBC Hgb Hct MCV MCH MCHC RDW Plt Count Sodium 139.5 Potassium 5.2 H Chloride 115 H Carbon Dioxide 17 L Anion Gap 8 BUN 63 H Creatinine 2.83 H Est GFR ( Amer) 23 L Glucose 153 H Calcium 7.6 L Phosphorus 7.4 H Magnesium 2.4 H Stool Occult Blood 04/26/20 04/26/20 04/27/20 17:16 17:16 00:45 Creatine Kinase 83 Troponin I 0.037 0.045 NT-Pro-B Natriuret Pep 38250 H 04/27/20 07:39 Creatine Kinase Troponin I 0.048 NT-Pro-B Natriuret Pep Impressions: Chest X-Ray 04/26/20 16:31 IMPRESSION: Borderline heart size with no pulmonary edema. Small pleural effusions. Renal Ultrasound 04/27/20 21:50 IMPRESSION: There is no evidence of hydronephrosis. Trace free intraperitoneal fluid is seen. Both kidneys demonstrate increased cortical echogenicity, suggestive of chronic medical renal disease. Guidance Needle Placement CT 04/28/20 00:00 IMPRESSION: Successful CT-guided biopsy of the lower pole of the left kidney as detailed above. Renal Biopsy CT 04/28/20 00:00 IMPRESSION: Successful CT-guided biopsy of the lower pole of the left kidney as detailed above. Assessment and Plan - Plan Summary Summary: Lupus Nephritis - c/b metabolic acidosis, hyperkalemia, hyperphosphatemia, anasarca - formal kidney biopsy results pending (discussed with pathologist today, will be faxed tonight) - nephrology following closely - continue steroids - will likely need to be discharge on immunosuppressive therapy - volume overload is due to nephrotic range proteinuria resulting in anasarca, not CHF (TTE shows normal LV EF and very mild DD) Systemic lupus erythematosus - used to take methotrexate but was stopped by her celebrity chef entrepreneur media personality Dr. Bone as it was not working. - was taking Plaquenil but unfortunately stopped a year ago due to financial reasons. - was on steroids but it was also stopped recently to see if her chronic iron deficiency anemia was caused by stomach ulcer due to chronic steroid intake. - Unfortunately no rheumatology consult available at [facility], will need outpatient follow up with rheum upon discharge (although she has no health insurance, and this will be an issue) - JORGE LUIS/PAULO on board to help with discharge planning and financial assistance Chronic iron deficiency anemia - hematology consulted - Venofer x3 days - stool hemoccult negative on 04/28 Hypertension - uncontrolled - titrate medications up slowly as tolerated - anticipate improvement with BP control as her kidney function improves with treatment of lupus nephritis - Monitor renal function closely - Time Time Spent with patient: 35 or more minutes Anticipated Discharge Disposition: Home, Self Care Anticipated Discharge Timeframe: within 48 hours
[2020-04-29] MEDS: FUROSEMIDE INJ/PF 40 MG/4 ML SDV IV SCH (17:08)
[2020-04-29] MEDS: METHYLPREDNISOLONE SOD SUCC 1,000 MG in DEXTROSE 5%-WATER 100 ML IV SCH (17:20)
[2020-04-29 17:36] LABS: ANTIMYELOPEROXIDASE (MPO) AB <9.0 U/mL (0.0-9.0); CYTOPLASMIC (C-ANCA) <1:20 titer (Neg:<1:20)
[2020-04-29] MEDS: IRON SUCROSE COMPLEX 300 MG in NORMAL SALINE 250 ML IV SCH (18:54)
[2020-04-29 19:12] LABS: ATYPICAL PANCA <1:20 titer (Neg:<1:20)
--- NOTE | 2020-04-29 22:17 | PDOC PROGRESS REPORT ---
Subjective Progress Note for:: 04/29/20 Subjective:: Patient underwent successful CT-guided percutaneous yesterday. This was uneventful without any complications. Patient does not complain of any pain or gross hematuria. She said she is doing fine and admits that she feels like her swelling is improving. She has no new complaints. She has adequate urine output of 1425 mL for the past 24 hours with negative 740 fluid balance. Reason For Visit: HYPERKALEMIA,ACUTE CHF EXACERBATION,LAMAR, Physical Exam Vital Signs: Temp Pulse Resp BP Pulse Ox 97.8 F 79 20 170/94 H 99 04/29/20 07:48 04/29/20 07:48 04/29/20 07:48 04/29/20 07:48 04/29/20 07:48 Intake & Output 04/28/20 04/29/20 04/30/20 06:59 06:59 06:59 Intake Total 845 685 Output Total 1360 1425 Balance -515 -740 Weight 78.6 kg 75.2 kg Exam: General appearance: PRESENT: no acute distress, cooperative, well-developed, well-nourished Head exam: PRESENT: atraumatic, normocephalic Eye exam: PRESENT: conjunctiva pale, PERRLA. ABSENT: scleral icterus Neck exam: ABSENT: JVD Respiratory exam: PRESENT: Normal breath sounds. ABSENT: crackles, rales, rhonchi, unlabored, wheezes Cardiovascular exam: PRESENT: Regular rate rhythm -+S1, +S2. ABSENT: diastolic murmur, systolic murmur GI/Abdominal exam: PRESENT: normal bowel sounds, soft. Improved abdominal distention and subcutaneous edema biopsy site on her left flank appears fine ABSENT: guarding, mass, tenderness Extremities exam: Improving grade 2 bilateral lower extremity pitting edema Neurological exam: PRESENT: alert, awake, oriented to person, place and time. Skin exam: PRESENT: dry, warm, Results Laboratory Results: 04/29/20 05:32 04/29/20 05:32 04/27/20 04/27/20 04/27/20 09:40 09:40 09:40 WBC RBC Hgb Hct MCV MCH MCHC RDW Plt Count Sodium Potassium Chloride Carbon Dioxide Anion Gap BUN Creatinine Est GFR ( Amer) Glucose Calcium Phosphorus Magnesium Ur 24 Hour Volume 1160 1160 1160 Ur Total Protein 24 Hr 4773 H Stool Occult Blood 04/28/20 04/28/20 04/29/20 19:19 21:16 05:32 WBC 7.2 RBC 3.17 L Hgb 8.8 L Hct 25.9 L MCV 82 MCH 27.6 MCHC 33.8 RDW 15.2 H Plt Count 189 Sodium 140.8 Potassium 5.3 H Chloride 115 H Carbon Dioxide 13 L Anion Gap 13 BUN 54 H Creatinine 2.70 H Est GFR ( Amer) 25 L Glucose 200 H Calcium 8.0 L Phosphorus Magnesium Ur 24 Hour Volume Ur Total Protein 24 Hr Stool Occult Blood NEGATIVE 04/29/20 05:32 WBC RBC Hgb Hct MCV MCH MCHC RDW Plt Count Sodium 139.5 Potassium 5.2 H Chloride 115 H Carbon Dioxide 17 L Anion Gap 8 BUN 63 H Creatinine 2.83 H Est GFR ( Amer) 23 L Glucose 153 H Calcium 7.6 L Phosphorus 7.4 H Magnesium 2.4 H Ur 24 Hour Volume Ur Total Protein 24 Hr Stool Occult Blood 04/26/20 04/26/20 04/27/20 17:16 17:16 00:45 Creatine Kinase 83 Troponin I 0.037 0.045 NT-Pro-B Natriuret Pep 33449 H 04/27/20 07:39 Creatine Kinase Troponin I 0.048 NT-Pro-B Natriuret Pep Impressions: Chest X-Ray 04/26/20 16:31 IMPRESSION: Borderline heart size with no pulmonary edema. Small pleural effusions. Renal Ultrasound 04/27/20 21:50 IMPRESSION: There is no evidence of hydronephrosis. Trace free intraperitoneal fluid is seen. Both kidneys demonstrate increased cortical echogenicity, suggestive of chronic medical renal disease. Guidance Needle Placement CT 04/28/20 00:00 IMPRESSION: Successful CT-guided biopsy of the lower pole of the left kidney as detailed above. Renal Biopsy CT 04/28/20 00:00 IMPRESSION: Successful CT-guided biopsy of the lower pole of the left kidney as detailed above. Assessment & Plan - Diagnosis (1) Nephrotic syndrome Is this a current diagnosis for this admission?: Yes Plan: This is evident by nephrotic range proteinuria of 18.6, hypoalbuminemia, hyperlipidemia and anasarca. Patient has also minimal microhematuria with elevated sed rate. With a background history of lupus without treatment for almost a year there is very high likelihood that this is lupus nephritis unless proven otherwise. Her 24-hour urine protein was 4773 with creatinine clearance of 18 mL/min. Serologies include positive ROBERT, positive and elevated titer of anti-Santamaria antibody, positive anti-[employer], positive double-stranded DNA greater than 3, low C3 of 35 and low C4 at 3. She has negative anti-SSA and anti-SSB, normal anti-GBM, negative HIV, negative hepatitis B surface antigen and antibody and negative hepatitis core antibody. Serologies indicate active lupus. Status post kidney biopsy, 04/28. Awaiting for interpretation from [facility]. Pulse methylprednisolone started yesterday, 04/28 to be given for 3 days followed by high-dose prednisone. If lupus nephritis is confirmed by the kidney biopsy I plan to start the patient back on MMF for which she was on before. Continue the same Lasix of 40 mg IV every 12 hours. I change captopril to a more longer acting ISADORA inhibitor, lisinopril. (2) Acute kidney injury superimposed on CKD Is this a current diagnosis for this admission?: Yes Plan: Acute worsening of the kidney function most likely related to the cause of her nephrotic syndrome again, as a stated above possibly lupus nephritis unless proven otherwise. Further elevation of the patient's BUN and creatinine is most likely secondary to initiation of therapy with steroids, diuretics and ISADORA inhibitor. This rise in BUN and creatinine is expected. Monitor kidney function and electrolytes. Avoid nephrotoxic medications and adjust therapy according to kidney function. (3) Hyperkalemia Is this a current diagnosis for this admission?: Yes Plan: Follow low potassium diet, may repeat giving Kayexalate or if potassium persisted to be high will consider Veltassa or Lokelma. (4) Hypertension Is this a current diagnosis for this admission?: Yes Plan: Continue Lasix. Changed captopril to lisinopril. Started amlodipine yesterday, I will increase the dose to 10 mg daily today. Continue as needed medications including IV labetalol and IV hydralazine. (5) Metabolic acidosis Is this a current diagnosis for this admission?: Yes Plan: Sodium bicarbonate started. (6) Chronic iron deficiency anemia Is this a current diagnosis for this admission?: Yes Plan: Patient would need iron supplements. Patient started on IV Venofer. Probably warrant GI work-up for chronic iron deficiency. (7) Systemic lupus erythematosus Qualifiers: Systemic lupus erythematosus type: other Systemic lupus erythematosus organ involvement: glomerular disease Qualified Code(s): M32.14 - Glomerular disease in systemic lupus erythematosus Is this a current diagnosis for this admission?: Yes Plan: Agree with reinitiation of Plaquenil and currently on steroids. Active lupus c onfirmed by serologies as stated above. (8) Hyperphosphatemia Is this a current diagnosis for this admission?: Yes Plan: Follow low phosphorus diet. Start calcium acetate. - Notes Notes: Plan discussed with the patient and Dr. Hall. - Time Time with patient: Greater than 35 minutes
[2020-04-29] MEDS: ATORVASTATIN CALCIUM 40 MG TABLET PO SCH (22:50)
[2020-04-29] MEDS: MYCOPHENOLATE MOFETIL 250 MG CAPSULE PO SCH (22:54)
[2020-04-30] MEDS: PANTOPRAZOLE SODIUM 40 MG TABLET.DR PO SCH (05:17)
[2020-04-30 07:36] LABS: HEMATOCRIT 28.8 % (36.0-47.0); HEMOGLOBIN 9.6 g/dL (12.0-15.5); MEAN CORPUSCULAR HEMOGLOBIN 27.7 pg (27.0-33.4); MEAN CORPUSCULAR HGB CONC 33.4 g/dL (32.0-36.0); MEAN CORPUSCULAR VOLUME 83 fl (80-97); PLATELET COUNT 146 10^3/uL (150-450); RED BLOOD COUNT 3.48 10^6/uL (3.72-5.28); WHITE BLOOD COUNT 9.2 10^3/uL (4.0-10.5)
[2020-04-30 07:53] LABS: ANION GAP 9 (5-19); BLOOD UREA NITROGEN 72 mg/dL (7-20); CALCIUM 7.6 mg/dL (8.4-10.2); CARBON DIOXIDE 16 mmol/L (22-30); CHLORIDE 113 mmol/L (98-107); GLUCOSE 153 mg/dL (75-110); POTASSIUM 4.9 mmol/L (3.6-5.0)
[2020-04-30 08:22] LABS: ABSOLUTE LYMPHOCYTES# (MANUAL) 1.4 10^3/uL (0.5-4.7); ABSOLUTE MONOCYTES # (MANUAL) 0.1 10^3/uL (0.1-1.4); BAND NEUTROPHILS % (MANUAL) 2 % (3-5); BASOPHILS % (MANUAL) 0 % (0-2); EOSINOPHILS % (MANUAL) 0 % (0-6); LYMPHOCYTES % (MANUAL) 15 % (13-45); METAMYELOCYTES % (MANUAL) 1 % (0-1); MONOCYTES % (MANUAL) 1 % (3-13); SEGMENTED NEUTROPHILS % (MAN) 81 % (42-78); TOTAL CELLS COUNTED 100
[2020-04-30 08:24] LABS: ANISOCYTOSIS SLIGHT; HYPOCHROMASIA SLIGHT; OVALOCYTES SLIGHT; PLATELET CLUMPS PRESENT; PLATELET COMMENT DECREASED; POIKILOCYTOSIS SLIGHT
[2020-04-30] MEDS: INSULIN LISPRO 100 UNIT/ML 3 ML VIAL SUBCUT SCH ×4 (10:04→22:02)
[2020-04-30] MEDS: LISINOPRIL 10 MG TABLET PO SCH (10:12)
[2020-04-30] MEDS: SODIUM BICARBONATE 650 MG TABLET PO SCH ×2 (10:13→22:01)
[2020-04-30] MEDS: FUROSEMIDE INJ/PF 40 MG/4 ML SDV IV SCH ×2 (10:13→17:26)
[2020-04-30] MEDS: CYANOCOBALAMIN (VITAMIN B-12) 1,000 MCG TABLET PO SCH (10:13)
[2020-04-30] MEDS: AMLODIPINE BESYLATE 10 MG TABLET PO SCH (10:14)
[2020-04-30] MEDS: HYDROXYCHLOROQUINE SULFATE 200 MG TABLET PO SCH ×2 (10:14→17:29)
[2020-04-30] MEDS: MYCOPHENOLATE MOFETIL 250 MG CAPSULE PO SCH ×2 (10:16→22:01)
--- NOTE | 2020-04-30 11:33 | PDOC PROGRESS REPORT ---
Subjective Progress Note for:: 04/30/20 Subjective:: Patient is feeling better and has no complaints. She feels like her swelling is better. She continues to have adequate urine output at 1325 mL for the last 24 hours. She tolerated the first dose of mycophenolate last night. Her blood pressure is is slowly improving although still elevated and suboptimal. Case management is trying to help her get some help for her medications upon discharge. Her Medicaid application has been filed and is currently pending [employer]. Reason For Visit: HYPERKALEMIA,ACUTE CHF EXACERBATION,LAMAR, Physical Exam Vital Signs: Temp Pulse Resp BP Pulse Ox 98.3 F 63 16 163/98 H 99 04/30/20 07:50 04/30/20 07:50 04/30/20 07:50 04/30/20 07:50 04/30/20 07:50 Intake & Output 04/29/20 04/30/20 05/01/20 06:59 06:59 06:59 Intake Total 685 265 Output Total 1425 1325 Balance -740 -1060 Weight 75.2 kg 78.1 kg Exam: General appearance: PRESENT: no acute distress, cooperative, well-developed, well-nourished Head exam: PRESENT: atraumatic, normocephalic Eye exam: PRESENT: conjunctiva pale, PERRLA. ABSENT: scleral icterus Neck exam: ABSENT: JVD Respiratory exam: PRESENT: Normal breath sounds. ABSENT: crackles, rales, rhonchi, unlabored, wheezes Cardiovascular exam: PRESENT: Regular rate rhythm -+S1, +S2. ABSENT: diastolic murmur, systolic murmur GI/Abdominal exam: PRESENT: normal bowel sounds, soft. Improved abdominal distention and subcutaneous edema. ABSENT: guarding, mass, tenderness Extremities exam: Improvement grade 1 bilateral lower extremity pitting edema Neurological exam: PRESENT: alert, awake, oriented to person, place and time. Skin exam: PRESENT: dry, warm, Results Laboratory Results: 04/30/20 06:03 04/30/20 06:03 04/30/20 04/30/20 06:03 06:03 WBC 9.2 RBC 3.48 L Hgb 9.6 L Hct 28.8 L MCV 83 MCH 27.7 MCHC 33.4 RDW 15.0 H Plt Count 146 L Seg Neutrophils % Not Reportable Sodium 138.1 Potassium 4.9 Chloride 113 H Carbon Dioxide 16 L Anion Gap 9 BUN 72 H Creatinine 2.83 H Est GFR ( Amer) 23 L Glucose 153 H Calcium 7.6 L 04/26/20 04/26/20 04/27/20 17:16 17:16 00:45 Creatine Kinase 83 Troponin I 0.037 0.045 NT-Pro-B Natriuret Pep 13279 H 04/27/20 07:39 Creatine Kinase Troponin I 0.048 NT-Pro-B Natriuret Pep Impressions: Chest X-Ray 04/26/20 16:31 IMPRESSION: Borderline heart size with no pulmonary edema. Small pleural effusions. Renal Ultrasound 04/27/20 21:50 IMPRESSION: There is no evidence of hydronephrosis. Trace free intraperitoneal fluid is seen. Both kidneys demonstrate increased cortical echogenicity, suggestive of chronic medical renal disease. Guidance Needle Placement CT 04/28/20 00:00 IMPRESSION: Successful CT-guided biopsy of the lower pole of the left kidney as detailed above. Renal Biopsy CT 04/28/20 00:00 IMPRESSION: Successful CT-guided biopsy of the lower pole of the left kidney as detailed above. Assessment & Plan - Diagnosis (1) Lupus nephritis Is this a current diagnosis for this admission?: Yes Plan: Status post kidney biopsy on 04/28/2020. Preliminary interpretation from [facility] nephro pathology showed diffuse lupus nephritis and an active and early sclerosing face with greater than 75% cellular crescent formation in association with lupus vasculopathy. Moderate to severe arteriosclerosis with moderate tubulointerstitial scarring also shown. EM still pending for final classification. Patient started on IV pulse methylprednisolone on 04/28 and today is her third dose. I started her on mycophenolate mofetil induction therapy at 1500 mg every 12 hours yesterday night. She tolerated it well without much problems. Tomorrow I will start prednisone 60 mg p.o. daily. She will continue the MMF and prednisone of the same dose upon discharge. Side effects of the medications discussed with patient. I discussed with the patient the importance of compliance with this medications for better outcome. Her prognosis is fair based on her kidney biopsy. She nee ds to be followed up closely by nephrology and rheumatology. I will be happy to see her in my office and gave her my card. S patient does not have a clear-cut insurance yet, case management is working on trying to help her get her medications upon discharge. She also told me that she may be able to get some of her medications. (2) Nephrotic syndrome Is this a current diagnosis for this admission?: Yes Plan: This is evident by nephrotic range proteinuria of 18.6, hypoalbuminemia, hyperlipidemia and anasarca. Patient has also minimal microhematuria with elevated sed rate. Kidney biopsy showed diffuse lupus nephritis with pending classification as stated above Her 24-hour urine protein was 4773 with creatinine clearance of 18 mL/min. Serologies include positive ROBERT, positive and elevated titer of anti-Santamaria antibody, positive anti-[employer], positive double-stranded DNA greater than 3, low C3 of 35 and low C4 at 3. She has negative anti-SSA and anti-SSB, normal anti-GBM, negative HIV, negative hepatitis B surface antigen and antibody and negative hepatitis core antibody. Her ANCA is negative and hepatitis C antibody is also negative. Her protein electrophoresis from serum and urine are both still pending. Serologies indicate active lupus. Status post kidney biopsy, 04/28. Preliminary interpretation as above. Continue the same Lasix of 40 mg IV every 12 hours. I change captopril to a more longer acting ISADORA inhibitor, lisinopril. (3) Acute kidney injury superimposed on CKD Is this a current diagnosis for this admission?: Yes Plan: Acute worsening of the kidney function most likely related to the cause of her nephrotic syndrome again, as a stated above possibly lupus nephritis unless proven otherwise. Further elevation of the patient's BUN and creatinine is most likely secondary to initiation of therapy with steroids, diuretics and ISADORA inhibitor. This rise in BUN and creatinine is expected. Monitor kidney function and electrolytes. Avoid nephrotoxic medications and adjust therapy according to kidney function. (4) Hyperkalemia Is this a current diagnosis for this admission?: Yes Plan: Resolved. Advised low potassium diet. (5) Hypertension Is this a current diagnosis for this admission?: Yes Plan: Continue Lasix. Changed captopril to lisinopril. I increased the dose of amlodipine to 10 mg daily today. Increase lisinopril to 40 mg daily today. Continue as needed medications including IV labetalol and IV hydralazine. (6) Metabolic acidosis Is this a current diagnosis for this admission?: Yes Plan: Sodium bicarbonate started. (7) Chronic iron deficiency anemia Is this a current diagnosis for this admission?: Yes Plan: Patient would need iron supplements. Patient started on IV Venofer. Probably warrant GI work-up for chronic iron deficiency. (8) Systemic lupus erythematosus Qualifiers: Systemic lupus erythematosus type: other Systemic lupus erythematosus organ involvement: glomerular disease Qualified Code(s): M32.14 - Glomerular disease in systemic lupus erythematosus Is this a current diagnosis for this admission?: Yes Plan: Agree with reinitiation of Plaquenil and currently on steroids. Active lupus confirmed by serologies as stated above. (9) Hyperphosphatemia Is this a current diagnosis for this admission?: Yes Plan: Follow low phosphorus diet. Start calcium acetate. - Notes Notes: Discussed with Dr. Hall. If she continues to be stable she can be discharged tomorrow. However case management just to make sure to the patient can get her medications. - Time Time with patient: 15-25 minutes
[2020-04-30] MEDS: CALCIUM ACETATE 667 MG CAPSULE PO SCH ×2 (14:11→17:26)
[2020-04-30] MEDS: METHYLPREDNISOLONE SOD SUCC 1,000 MG in DEXTROSE 5%-WATER 100 ML IV SCH (17:27)
[2020-04-30 18:22] LABS: A/G RATIO. 0.7 (0.7-1.7); ALBUMIN 3 2.2 g/dL (2.9-4.4); ALPHA-1-GLOBULIN 0.2 g/dL (0.0-0.4); BETA GLOBULIN 0.5 g/dL (0.7-1.3); GAMMA GLOBULINS 1.7 g/dL (0.4-1.8); IMMUNOGLOBULIN A 276 mg/dL (87-352); IMMUNOGLOBULIN G 1971 mg/dL (586-1602); IMMUNOGLOBULIN M 107 mg/dL (26-217); MONOCLONAL-SPIKE Not Observed g/dL (Not Observ); PROTEIN TOTAL SERUM 5.6 g/dL (6.0-8.5)
--- NOTE | 2020-04-30 18:55 | PDOC PROGRESS REPORT ---
Subjective Progress Note for:: 04/30/20 Subjective:: 34 year old female with past medical history of untreated lupus erythematosus, chronic iron deficiency anemia, CKD, who p/w progressively worsening edema. She used to take methotrexate however was stopped at it was not working for her, she was switched to Plaquenil but unfortunately she had to stop taking it as she could not see a stress analyst due to financial reason and did not have a prescription for Plaquenil, she was taking prednisone which she states was re cently stopped as to see if her chronic iron deficiency anemia was caused due to stomach ulcer caused by chronic prednisone intake. About 3 to 4 weeks ago patient started noticing abdominal distention, bilateral lower extremity swelling extending proximally to her thighs and bilateral diffuse hand swelling. Denies any oral, genital or skin rash, denies any joint pain or swelling. In ED she was noted to be hypertensive, tachypneic, hyperkalemia, elevated creatinine, elevated troponin, elevated proBNP, positive leukocyte esterase and excessive proteinuria. Nephrology was consulted due to concern for lupus nephritis, and she underwent IR-guided kidney biopsy on 04/28/2020. She was subsequently started on pulse steroids x3 days. Awaiting pathology report from kidney biopsy. No acute events overnight. Patient reporting improvement of her lower extremity edema. Reason For Visit: HYPERKALEMIA,ACUTE CHF EXACERBATION,LAMAR, Physical Exam Vital Signs: Temp Pulse Resp BP Pulse Ox 97.4 F 63 16 140/90 H 100 04/30/20 15:20 04/30/20 15:20 04/30/20 15:20 04/30/20 15:20 04/30/20 15:20 Intake & Output 04/29/20 04/30/20 05/01/20 06:59 06:59 06:59 Intake Total 685 265 Output Total 1425 1325 450 Balance -740 -1060 -450 Weight 75.2 kg 78.1 kg Additional comments: General: appears well, good spirits Head: normocephalic, atraumatic Eyes: anicteric sclera ENT: moist mucus memranes, no oropharyngeal erythema/exudate Neck: no lymphadenopathy Lungs: clear to auscultation bilaterally Heart: regular rate and rhythm, no murmurs/rubs/gallops Abdomen: normoactive bowel sounds, soft, non-tender, non-distended : no CVA tenderness, no suprapubic tenderness Extremities: warm and well perfused, 1+ BLE pitting edema Vascular: 2+ peripheral pulses in all extremities Neuro: A&Ox3 Skin: no rash Results Laboratory Results: 04/30/20 06:03 04/30/20 06:03 04/27/20 04/30/20 04/30/20 13:37 06:03 06:03 WBC 9.2 RBC 3.48 L Hgb 9.6 L Hct 28.8 L MCV 83 MCH 27.7 MCHC 33.4 RDW 15.0 H Plt Count 146 L Seg Neutrophils % Not Reportable Sodium 138.1 Potassium 4.9 Chloride 113 H Carbon Dioxide 16 L Anion Gap 9 BUN 72 H Creatinine 2.83 H Est GFR ( Amer) 23 L Glucose 153 H Calcium 7.6 L Total Protein 5.6 L 04/26/20 04/26/20 04/27/20 17:16 17:16 00:45 Creatine Kinase 83 Troponin I 0.037 0.045 NT-Pro-B Natriuret Pep 57606 H 04/27/20 07:39 Creatine Kinase Troponin I 0.048 NT-Pro-B Natriuret Pep Impressions: Chest X-Ray 04/26/20 16:31 IMPRESSION: Borderline heart size with no pulmonary edema. Small pleural effusions. Renal Ultrasound 04/27/20 21:50 IMPRESSION: There is no evidence of hydronephrosis. Trace free intraperitoneal fluid is seen. Both kidneys demonstrate increased cortical echogenicity, suggestive of chronic medical renal disease. Guidance Needle Placement CT 04/28/20 00:00 IMPRESSION: Successful CT-guided biopsy of the lower pole of the left kidney as detailed above. Renal Biopsy CT 04/28/20 00:00 IMPRESSION: Successful CT-guided biopsy of the lower pole of the left kidney as detailed above. Assessment and Plan - Plan Summary Summary: Lupus Nephritis: c/b metabolic acidosis, hyperkalemia, hyperphosphatemia, anasarca. Status post kidney biopsy on 04/28/2020. Preliminary interpretation from [facility] pathology showed diffuse lupus nephritis and an active and early sclerosing face with greater than 75% cellular crescent formation in association with lupus vasculopathy. Moderate to severe arteriosclerosis with moderate tubulointerstitial scarring also shown. EM still pending for final classifi cation. Patient started on IV pulse methylprednisolone on 04/28 for total of 3 days and mycophenolate mofetil induction therapy on 04/29. Her prognosis is fair based on her kidney biopsy. She needs to be followed up closely by nephrology and rheumatology upon discharge. - volume overload is due to nephrotic range proteinuria resulting in anasarca, not CHF (TTE shows normal LV EF and very mild DD) Chronic iron deficiency anemia - hematology consulted - Venofer x3 days - stool hemoccult negative on 04/28 Hypertension: now controlled - titrate medications up slowly as tolerated - anticipate improvement with BP control as her kidney function improves with treatment of lupus nephritis - Monitor renal function closely LAMAR: improving - plan to switch Lasix from IV to PO in AM - Time Time Spent with patient: 35 or more minutes Anticipated Discharge Disposition: Home, Self Care Anticipated Discharge Timeframe: within 24 hours
[2020-04-30] MEDS: ATORVASTATIN CALCIUM 40 MG TABLET PO SCH (22:01)
[2020-05-01] MEDS: PANTOPRAZOLE SODIUM 40 MG TABLET.DR PO SCH (05:28)
[2020-05-01] MEDS: INSULIN LISPRO 100 UNIT/ML 3 ML VIAL SUBCUT SCH ×2 (08:36→13:19)
[2020-05-01] MEDS: CALCIUM ACETATE 667 MG CAPSULE PO SCH ×2 (08:36→13:19)
[2020-05-01] MEDS: LISINOPRIL 10 MG TABLET PO SCH (09:48)
[2020-05-01] MEDS: MYCOPHENOLATE MOFETIL 250 MG CAPSULE PO SCH (09:49)
[2020-05-01] MEDS: CYANOCOBALAMIN (VITAMIN B-12) 1,000 MCG TABLET PO SCH (09:49)
[2020-05-01] MEDS: SODIUM BICARBONATE 650 MG TABLET PO SCH (09:49)
[2020-05-01] MEDS: AMLODIPINE BESYLATE 10 MG TABLET PO SCH (09:49)
[2020-05-01] MEDS ORDERED: PREDNISONE 20 MG TABLET PO SCH (10:00)
[2020-05-01 14:36] VITALS: BP 151/96
--- NOTE | 2020-05-01 21:29 | PDOC DISCHARGE SUMMARY ---
Impression - Admit/DC Date/PCP Admission Date/Primary Care Provider: 04/26/20 22:38 KEHINDE FRANKLIN MD Discharge Date: 05/01/20 - Discharge Diagnosis (1) Acute kidney injury superimposed on CKD Is this a current diagnosis for this admission?: Yes (2) Anasarca Is this a current diagnosis for this admission?: Yes (3) Chronic iron deficiency anemia Is this a current diagnosis for this admission?: Yes (4) Hyperkalemia Is this a current diagnosis for this admission?: Yes (5) Hyperphosphatemia Is this a current diagnosis for this admission?: Yes (6) Long-term corticosteroid use Is this a current diagnosis for this admission?: Yes (7) Lupus Is this a current diagnosis for this admission?: Yes (8) Lupus nephritis Is this a current diagnosis for this admission?: Yes (9) Metabolic acidosis Is this a current diagnosis for this admission?: Yes (10) Nephrotic syndrome Is this a current diagnosis for this admission?: Yes - Assessment Summary: Lupus Nephritis: c/b metabolic acidosis, hyperkalemia, hyperphosphatemia, anasarca. Status post kidney biopsy on 04/28/2020. Preliminary interpretation from [facility] pathology showed diffuse lupus nephritis and an active and early sclerosing face with greater than 75% cellular crescent formation in association with lupus vasculopathy. Moderate to severe arteriosclerosis with moderate tubulointerstitial scarring also shown. EM still pending for final classification. Patient started on IV pulse methylprednisolone on 04/28 for total of 3 days and mycophenolate mofetil induction therapy on 04/29. Her prognosis is fair based on her kidney biopsy. She needs to be followed up closely by nephrology and rheumatology upon discharge. - Additional Information Resuscitation Status: Full Code Discharge Diet: Cardiac, Other (Comments) Discharge Activity: Activity As Tolerated, Balance Activity w/Rest, Weigh Daily Referrals: KEHINDE FRANKLIN MD [Primary Care Provider] - 05/04/20 3:00 pm (withing 2 weeks for further IV iron and labs. Please call office to arrange. ) EBONI DELANEY MD [ACTIVE STAFF] - MOHINDER RAMIREZ DO [NO LOCAL MD] - Prescriptions: RX: Mycophenolate Mofetil [Cellcept 250 mg Capsule] 1,500 mg PO Q12 30 Days capsule RX: Prednisone [Deltasone 20 mg Tablet] 60 mg PO DAILY #90 tablet RX: Furosemide [Lasix] 40 mg PO DAILY 30 Days #30 tablet RX: Atorvastatin Calcium [Lipitor 40 mg Tablet] 40 mg PO QHS 30 Days tablet RX: Amlodipine Besylate [Norvasc 10 mg Tablet] 10 mg PO DAILY 30 Days tablet RX: Calcium Acetate [Phoslo 667 mg Capsule] 1,334 mg PO AC 30 Days capsule RX: Lisinopril [Prinivil 10 mg Tablet] 40 mg PO DAILY 30 Days tablet RX: Pantoprazole Sodium [Protonix [address] Tablet] 40 mg PO Q6AM #30 tablet.dr RX: Sodium Bicarbonate [Sodium Bicarbonate 650 mg Tablet] 1,300 mg PO Q12 #60 tablet Home Medications: RX: Cyanocobalamin (Vitamin B-12) [Vitamin B-12 1000 mcg Tablet] 1,000 mcg PO DAILY 04/27/20 RX: Acetaminophen [Tylenol 325 mg Tablet] 325 mg PO Q4HP PRN tablet 05/01/20 RX: Amlodipine Besylate [Norvasc 10 mg Tablet] 10 mg PO DAILY 30 Days tablet 05/01/20 RX: Atorvastatin Calcium [Lipitor 40 mg Tablet] 40 mg PO QHS 30 Days tablet 05/01/20 RX: Calcium Acetate [Phoslo 667 mg Capsule] 1,334 mg PO AC 30 Days capsule 0 05/01/20 RX: Furosemide [Lasix] 40 mg PO DAILY 30 Days #30 tablet 05/01/20 RX: Lisinopril [Prinivil 10 mg Tablet] 40 mg PO DAILY 30 Days tablet 05/01/20 RX: Mycophenolate Mofetil [Cellcept 250 mg Capsule] 1,500 mg PO Q12 30 Days capsule 05/01/20 RX: Pantoprazole Sodium [Protonix [address] Tablet] 40 mg PO Q6AM #30 tablet.dr 05/01/20 RX: Prednisone [Deltasone 20 mg Tablet] 60 mg PO DAILY #90 tablet 05/01/20 RX: Sodium Bicarbonate [Sodium Bicarbonate 650 mg Tablet] 1,300 mg PO Q12 #60 tablet 05/01/20 History of Present Illiness History of Present Illness: SON BELTRAN is a 34 year old female Physical Exam Vital Signs: Temp Pulse Resp BP Pulse Ox 98.0 F 77 18 151/96 H 100 05/01/20 14:35 05/01/20 14:35 05/01/20 14:35 05/01/20 14:35 05/01/20 14:35 Intake & Output 04/30/20 05/01/20 05/02/20 06:59 06:59 06:59 Intake Total 265 940 Output Total 1328 900 300 Balance -1060 -900 640 Weight 78.1 kg 71.8 kg Results Laboratory Results: WBC 9.2 10^3/uL (4.0-10.5) 04/30/20 06:03 RBC 3.48 10^6/uL (3.72-5.28) L 04/30/20 06:03 Hgb 9.6 g/dL (12.0-15.5) L 04/30/20 06:03 Hct 28.8 % (36.0-47.0) L 04/30/20 06:03 MCV 83 fl (80-97) 04/30/20 06:03 MCH 27.7 pg (27.0-33.4) 04/30/20 06:03 MCHC 33.4 g/dL (32.0-36.0) 04/30/20 06:03 RDW 15.0 % (11.5-14.0) H 04/30/20 06:03 Plt Count 146 10^3/uL (150-450) L 04/30/20 06:03 Lymph % (Auto) Not Reportable 04/30/20 06:03 [place] % (Auto) Not Reportable 04/30/20 06:03 Eos % (Auto) Not Reportable 04/30/20 06:03 Baso % (Auto) Not Reportable 04/30/20 06:03 Reticulocyte # 0.049 10^6/uL (0.028-0.122) 04/27/20 07:39 Absolute Neuts (auto) Not Reportable 04/30/20 06:03 Absolute Lymphs (auto) Not Reportable 04/30/20 06:03 Absolute Monos (auto) Not Reportable 04/30/20 06:03 Absolute Eos (auto) Not Reportable 04/30/20 06:03 Absolute Basos (auto) Not Reportable 04/30/20 06:03 Total Counted 100 04/30/20 06:03 Seg Neutrophils % Not Reportable 04/30/20 06:03 Seg Neuts % (Manual) 81 % (42-78) H 04/30/20 06:03 Band Neutrophils % 2 % (3-5) L 04/30/20 06:03 Lymphocytes % (Manual) 15 % (13-45) 04/30/20 06:03 Atypical Lymphs % 2 % (0) 04/26/20 17:16 Monocytes % (Manual) 1 % (3-13) L 04/30/20 06:03 Eosinophils % (Manual) 0 % (0-6) 04/30/20 06:03 Basophils % (Manual) 0 % (0-2) 04/30/20 06:03 Metamyelocytes % 1 % (0-1) 04/30/20 06:03 Abs Neuts (Manual) 7.7 10^3/uL (1.7-8.2) 04/30/20 06:03 Abs Lymphs (Manual) 1.4 10^3/uL (0.5-4.7) 04/30/20 06:03 Abs Monocytes (Manual) 0.1 10^3/uL (0.1-1.4) 04/30/20 06:03 Absolute Eos (Manual) 0.0 10^3/uL (0.0-0.6) 04/30/20 06:03 Abs Basophils (Manual) 0.0 10^3/uL (0.0-0.2) 04/30/20 06:03 Clumped Platelets PRESENT 04/30/20 06:03 Platelet Comment DECREASED 04/30/20 06:03 Polychromasia 1+ 04/26/20 17:16 Hypochromasia SLIGHT 04/30/20 06:03 Poikilocytosis SLIGHT 04/30/20 06:03 Anisocytosis SLIGHT 04/30/20 06:03 Ovalocytes SLIGHT 04/30/20 06:03 ESR 75 mm/hr (0-20) H 04/26/20 23:03 Retic Count (auto) 1.41 % (0.66-2.85) 04/27/20 07:39 PT 12.7 SEC (11.4-15.4) 04/27/20 13:37 INR 0.93 04/27/20 13:37 APTT 31.4 SEC (23.5-35.8) 04/27/20 13:37 Sodium 138.1 mmol/L (137-145) 04/30/20 06:03 Potassium 4.9 mmol/L (3.6-5.0) 04/30/20 06:03 Chloride 113 mmol/L (98-107) H 04/30/20 06:03 Carbon Dioxide 16 mmol/L (22-30) L 04/30/20 06:03 Anion Gap 9 (5-19) 04/30/20 06:03 BUN 72 mg/dL (7-20) H 04/30/20 06:03 Creatinine 2.83 mg/dL (0.52-1.25) H 04/30/20 06:03 Est GFR ( Amer) 23 (>60) L 04/30/20 06:03 Est GFR (MDRD) Non-Af 19 (>60) L 04/30/20 06:03 Glucose 153 mg/dL (75-110) H 04/30/20 06:03 POC Glucose 179 mg/dL (70-110) H 05/01/20 11:07 Hemoglobin A1c % 5.7 % (4.7-6.0) 04/26/20 17:16 Calcium 7.6 mg/dL (8.4-10.2) L 04/30/20 06:03 Phosphorus 7.4 mg/dL (2.5-4.5) H 04/29/20 05:32 Magnesium 2.4 mg/dL (1.6-2.3) H 04/29/20 05:32 Iron < 10.1 ug/dL (37-170) L 04/27/20 07:39 TIBC 158 ug/dL (250-450) L 04/27/20 07:39 Iron Saturation UNABLE TO CALCULATE % (15% - 50%) 04/27/20 07:39 Ferritin 27.90 ng/mL (6.2-137.0) 04/27/20 07:39 Total Bilirubin 0.2 mg/dL (0.2-1.3) 04/27/20 07:39 Direct Bilirubin 0.2 mg/dL (0.0-0.4) 04/27/20 07:39 Neonat Total Bilirubin Not Reportable 04/27/20 07:39 Neonat Direct Bilirubin Not Reportable 04/27/20 07:39 Neonat Indirect Bili Not Reportable 04/27/20 07:39 AST 22 U/L (14-36) 04/27/20 07:39 ALT 12 U/L (<35) 04/27/20 07:39 Alkaline Phosphatase 71 U/L (38-126) 04/27/20 07:39 Creatine Kinase 83 U/L (30-135) 04/26/20 17:16 Troponin I 0.048 ng/mL 04/27/20 07:39 C-Reactive Protein 10.7 mg/L (<10.0) H 04/26/20 17:16 NT-Pro-B Natriuret Pep 71404 pg/mL (<125) H 04/26/20 17:16 Total Protein 5.6 g/dL (6.0-8.5) L 04/27/20 13:37 Albumin 2.0 g/dL (3.5-5.0) L 04/27/20 07:39 Globulin 3.4 g/dL (2.2-3.9) 04/27/20 13:37 Alb/Glob Ratio Alt Meth 0.7 (0.7-1.7) 04/27/20 13:37 Jecug-2-Gitecgufs 0.2 g/dL (0.0-0.4) 04/27/20 13:37 Rtzlf-8-Xiuvsnezm 1.1 g/dL (0.4-1.0) H 04/27/20 13:37 Beta Globulins 0.5 g/dL (0.7-1.3) L 04/27/20 13:37 Gamma Globulins 1.7 g/dL (0.4-1.8) 04/27/20 13:37 M-Hernán Not Observed g/dL (Not Observ) 04/27/20 13:37 Triglycerides 302 mg/dL (<150) H 04/26/20 17:16 Cholesterol 233.02 mg/dL (0-200) H 04/26/20 17:16 LDL Cholesterol Direct 117 mg/dL (<100) H 04/26/20 17:16 VLDL Cholesterol 60.4 mg/dL (10-31) H 04/26/20 17:16 HDL Cholesterol 42 mg/dL (>40) 04/26/20 17:16 Lipase 276.0 U/L (23-300) 04/26/20 17:16 Vitamin B12 971.0 pg/mL (239-931) H 04/27/20 07:39 Folate 17.30 ng/mL (>2.76) 04/27/20 07:39 TSH 1.58 uIU/mL (0.47-4.68) 04/27/20 07:39 Serum HCG, Qual NEGATIVE (NEGATIVE) 04/26/20 17:16 Immunoglobulin A 276 mg/dL (87-352) 04/27/20 13:37 Immunoglobulin G 1971 mg/dL (586-1602) H 04/27/20 13:37 Immunoglobulin M 107 mg/dL (26-217) 04/27/20 13:37 Serum Immunofixation Comment (.) 04/27/20 13:37 Immunofixation Note Comment (.) 04/27/20 13:37 Urine Color YELLOW 04/26/20 17:16 Urine Appearance CLOUDY 04/26/20 17:16 Urine pH 6.0 (5.0-9.0) 04/26/20 17:16 Ur Specific [place] 1.015 04/26/20 17:16 Urine Protein >=500 mg/dL (NEGATIVE) H 04/26/20 17:16 Urine Glucose (UA) NEGATIVE mg/dL (NEGATIVE) 04/26/20 17:16 Urine Ketones NEGATIVE mg/dL (NEGATIVE) 04/26/20 17:16 Urine Blood SMALL (NEGATIVE) H 04/26/20 17:16 Urine Nitrite NEGATIVE (NEGATIVE) 04/26/20 17:16 Urine Bilirubin NEGATIVE (NEGATIVE) 04/26/20 17:16 Urine Urobilinogen NEGATIVE mg/dL (<2.0) 04/26/20 17:16 Ur Leukocyte Esterase MODERATE (NEGATIVE) H 04/26/20 17:16 Urine WBC (Auto) 19 /HPF 04/26/20 17:16 Urine RBC (Auto) 8 /HPF 04/26/20 17:16 U Hyaline Cast (Auto) 18 /LPF 04/26/20 17:16 Urine Bacteria (Auto) TRACE /HPF 04/26/20 17:16 Squamous Epi Cells Auto 24 /HPF 04/26/20 17:16 Urine Mucus (Auto) RARE /LPF 04/26/20 17:16 Ur 24 Hour Volume 1160 mL 04/27/20 09:40 Ur 24 Hour Volume 1160 mL 04/27/20 09:40 Ur 24 Hour Volume 1160 mL 04/27/20 09:40 Urine Creatinine 58.6 mg/dL (16-327) 04/27/20 09:40 Urine Creatinine 58.6 mg/dL (16-327) 04/27/20 09:40 Ur Creatinine mg/24hr 0.7 mg/day (0.8-2.0) L 04/27/20 09:40 Serum Creatinine 2.63 mg/dL (0.52-1.25) H 04/27/20 09:40 Creatinine Clearance 18 mL/min (87-140) L 04/27/20 09:40 Ur Total Protein 24 Hr 4773 mg/day (42-225) H 04/27/20 09:40 Urine Sodium 102 mmol/L (30-90) H 04/27/20 00:12 Urine Total Protein 411.5 mg/dL (<12) H 04/27/20 09:40 Urine Ascorbic Acid NEGATIVE (NEGATIVE) 04/26/20 17:16 Stool Occult Blood NEGATIVE (NEGATIVE) 04/28/20 19:19 Urine Opiates Screen NEGATIVE 04/26/20 17:16 Urine Methadone Screen NEGATIVE 04/26/20 17:16 Ur Barbiturates Screen NEGATIVE 04/26/20 17:16 Ur Phencyclidine Scrn NEGATIVE 04/26/20 17:16 Ur Amphetamines Screen NEGATIVE 04/26/20 17:16 U Benzodiazepines Scrn NEGATIVE 04/26/20 17:16 Urine Cocaine Screen NEGATIVE 04/26/20 17:16 U Marijuana (THC) Screen NEGATIVE 04/26/20 17:16 Albumin (ABELARDO) 2.2 g/dL (2.9-4.4) L 04/27/20 13:37 Anti-Nuclear Antibody Positive (Negative) A 04/26/20 17:16 ROBERT Comment Comment (.) 04/26/20 17:16 c-ANCA Antibody <1:20 titer (Neg:<1:20) 04/27/20 13:37 Anti-Proteinase 3 Intrp <3.5 U/mL (0.0-3.5) 04/27/20 13:37 Atypical p-ANCA <1:20 titer (Neg:<1:20) 04/27/20 13:37 p-ANCA Antibody <1:20 titer (Neg:<1:20) 04/27/20 13:37 Myeloperoxidase Ab <9.0 U/mL (0.0-9.0) 04/27/20 13:37 Anti-sm/DRUG SAFETY ASSOCIATE Abs >8.0 AI (0.0-0.9) H 04/26/20 17:16 SS-A/Ro Antibody 0.2 AI (0.0-0.9) 04/26/20 17:16 SS-B/La Antibody <0.2 AI (0.0-0.9) 04/26/20 17:16 Sm ([place]) IgG Ab, Quant >8.0 AI (0.0-0.9) H 04/26/20 23:03 DRUG SAFETY ASSOCIATE Antibody 8.0 AI (0.0-0.9) H 04/26/20 17:16 Double Strand DNA Ab >300 IU/mL (0-9) H 04/27/20 13:37 Glomerular Base Memb Ab 4 units (0-20) 04/27/20 13:37 Complement C3 35 mg/dL (82-167) L 04/26/20 23:03 Complement C4 3 mg/dL (14-44) L 04/26/20 23:03 Hep Bs Antigen Negative (Negative) 04/27/20 13:37 Hep Bs Antibody, Quant <3.1 mIU/mL (Immunity>9) L 04/27/20 13:37 Hep B Core Total Ab Negative (Negative) 04/27/20 13:37 HCV RNA Qual (EMANUEL) Negative (Negative) 04/27/20 13:37 HIV 1&2 Antibody NEGATIVE (NEGATIVE) 04/27/20 13:37 Blood Type A POSITIVE 04/26/20 17:16 Antibody Screen NEGATIVE 04/26/20 17:16 04/26/20 04/27/20 04/27/20 17:16 00:45 07:39 Troponin I 0.037 0.045 0.048 NT-Pro-B Natriuret Pep [id number] H Impressions: Chest X-Ray 04/26/20 16:31 IMPRESSION: Borderline heart size with no pulmonary edema. Small pleural effusions. Renal Ultrasound 04/27/20 21:50 IMPRESSION: There is no evidence of hydronephrosis. Trace free intraperitoneal fluid is seen. Both kidneys demonstrate increased cortical echogenicity, suggestive of chronic medical renal disease. Guidance Needle Placement CT 04/28/20 00:00 IMPRESSION: Successful CT-guided biopsy of the lower pole of the left kidney as detailed above. Renal Biopsy CT 04/28/20 00:00 IMPRESSION: Successful CT-guided biopsy of the lower pole of the left kidney as detailed above. Stroke Is this a Stroke Patient?: No Acute Heart Failure - Is this a Heart Failure Patient?: No
[2020-05-04 16:37] LABS: ALBUMIN UR 51.4 % (.); ALPHA-1-GLOBULIN URINE 7.4 % (.); ALPHA-2-GLOBULIN URINE 7.3 % (.); GAMMA GLOBULIN URINE 23.1 % (.); M-SPIKE % UR Not Observed % (Not Observ)
[2020-05-05 07:16] LABS: PROTEIN TOTAL URINE 537.8 mg/dL (Not Estab.)
== END 2020-05-01 15:34 | disposition home or self-care (01) | DRG 546 ==
LOC: ER 15:27 → EH 22:38 → 3W 04-27 01:22
PROVIDERS: ADMIT Internal Medicine; ATTEND Hospitalist
PROC: 0TB13ZX Excision of Left Kidney, Percutaneous Approach, Diagnostic (ICD-10-PCS; principal; 2020-04-28)
DX: M32.14 Glomerular disease in systemic lupus erythematosus (principal); N17.9 Acute kidney failure, unspecified; E87.2 Acidosis; N18.2 Chronic kidney disease, stage 2 (mild); E87.5 Hyperkalemia; D50.9 Iron deficiency anemia, unspecified; F32.9 Major depressive disorder, single episode, unspecified; J45.909 Unspecified asthma, uncomplicated; K21.9 Gastro-esophageal reflux disease without esophagitis; I34.0 Nonrheumatic mitral (valve) insufficiency; E78.5 Hyperlipidemia, unspecified; E83.39 Other disorders of phosphorus metabolism; I27.20 Pulmonary hypertension, unspecified; R80.9 Proteinuria, unspecified; Z82.61 Family history of arthritis; Z83.3 Family history of diabetes mellitus; Z82.3 Family history of stroke; Z83.438 Family history of other disorder of lipoprotein metabolism and other lipidemia; Z82.49 Family history of ischemic heart disease and other diseases of the circulatory system; Z59.8 Other problems related to housing and economic circumstances; Z82.69 Family history of other diseases of the musculoskeletal system and connective tissue
CPT/HCPCS: 36415; 50200; 71046; 76775; 77012; 80048; 80053; 80061; 80307; 81001; 82272; 82550; 82570; 82575; 82595; 82607; 82728; 82746; 82962; 83036; 83516; 83540; 83550; 83690; 83735; 83880; 84100; 84156; 84166; 84300; 84443; 84484; 84703; 85025; 85027; 85045; 85610; 85652; 85730; 86038; 86140; 86160; 86225; 86235; 86256; 86317; 86320; 86701; 86704; 86850; 86900; 86901; 87070; 87340; 87521; 88313; 88346; 88348; 93005; 93010; 93306; 99285; J0360; J0610; J1644; J1756; J1815; J1940; J2250; J2405; J2920; J2930; J3010; J3490; J7050; J7060; J7512; J7517

== ENCOUNTER 2020-05-05 12:10 | Outpatient (CLI) | payer MEDICAID ==
[2020-05-05 12:27] VITALS: BP 161/92
== END 2020-05-05 13:14 | disposition home or self-care (01) ==
LOC: II 12:10 → 5TH 12:11 → II 13:14
PROVIDERS: ATTEND Internal Medicine Hematology & Oncology
DX: M32.9 Systemic lupus erythematosus, unspecified (principal); D63.8 Anemia in other chronic diseases classified elsewhere
CPT/HCPCS: 96365; Q0138; J7050

== ENCOUNTER 2020-05-12 12:08 | Outpatient (CLI) | payer MEDICAID ==
[2020-05-12 12:57] VITALS: BP 150/88
== END 2020-05-12 13:01 | disposition home or self-care (01) ==
LOC: II 12:08 → 5TH 12:10 → II 13:01
PROVIDERS: ATTEND Internal Medicine Hematology & Oncology
DX: M32.9 Systemic lupus erythematosus, unspecified (principal); D63.8 Anemia in other chronic diseases classified elsewhere
CPT/HCPCS: 96365; Q0138; J7050

== ENCOUNTER → 2020-05-17 | Outpatient (CLI) | payer MEDICAID ==
[2020-05-17 13:52] LABS: ABSOLUTE LYMPHOCYTES (AUTO) 0.7 10^3/uL (0.5-4.7); ABSOLUTE MONOCYTES (AUTO) 0.5 10^3/uL (0.1-1.4); ABSOLUTE NEUT (AUTO) 5.4 10^3/uL (1.7-8.2); BASOPHILS % (AUTO) 0.1 % (0-2); HEMATOCRIT 24.4 % (36.0-47.0); HEMOGLOBIN 8.4 g/dL (12.0-15.5); LYMPHOCYTES % (AUTO) 10.4 % (13-45); MEAN CORPUSCULAR HEMOGLOBIN 28.3 pg (27.0-33.4); MEAN CORPUSCULAR HGB CONC 34.4 g/dL (32.0-36.0); MEAN CORPUSCULAR VOLUME 82 fl (80-97); MONOCYTES % (AUTO) 7.3 % (3-13); PLATELET COUNT 167 10^3/uL (150-450); RED BLOOD COUNT 2.96 10^6/uL (3.72-5.28); RED CELL DISTRIBUTION WIDTH 14.9 % (11.5-14.0); SEGMENTED NEUTROPHILS % (AUTO) 82.2 % (42-78); TOTAL CELLS COUNTED % (AUTO) 100 %; WHITE BLOOD COUNT 6.6 10^3/uL (4.0-10.5)
[2020-05-17 13:56] LABS: APPEARANCE,URINE CLEAR; BILIRUBIN,URINE NEGATIVE (NEGATIVE); COLOR,URINE STRAW; GLUCOSE, URINE NEGATIVE (NEGATIVE); KETONES,URINE NEGATIVE (NEGATIVE); LEUKOCYTE ESTERASE,URINE TRACE (NEGATIVE); NITRITE,URINE NEGATIVE (NEGATIVE); PROTEIN,URINE >=500 mg/dL (NEGATIVE); URINE SPECIFIC GRAVITY 1.012; UROBILINOGEN,URINE NEGATIVE mg/dL (<2.0)
[2020-05-17 14:07] LABS: ADD MANUAL MICROSCOPIC YES
[2020-05-17 14:08] LABS: RBC,URINE RARE /HPF
[2020-05-17 14:12] LABS: ALBUMIN 2.5 g/dL (3.5-5.0); ALKALINE PHOSPHATASE 59 U/L (38-126); ASPARTATE AMINO TRANSFERASE 14 U/L (14-36); BILIRUBIN,DIRECT 0.3 mg/dL (0.0-0.4); BILIRUBIN,TOTAL 0.3 mg/dL (0.2-1.3); BLOOD UREA NITROGEN 52 mg/dL (7-20); CALCIUM 8.2 mg/dL (8.4-10.2); GLUCOSE 91 mg/dL (75-110); PHOSPHORUS 3.2 mg/dL (2.5-4.5); POTASSIUM 3.9 mmol/L (3.6-5.0); TOTAL PROTEIN 5.2 g/dL (6.3-8.2)
[2020-05-17 14:17] LABS: ANION GAP 5 (5-19); CARBON DIOXIDE 26 mmol/L (22-30); CHLORIDE 106 mmol/L (98-107)
[2020-05-17 14:18] LABS: URINE CREATININE 84.3 mg/dL (16-327)
[2020-05-17 14:25] LABS: UR PRO/CREAT RATIO RESULT 5.4 mg/mg (0.0-0.2); URINE PROTEIN 458.1 mg/dL (<12)
[2020-05-17 14:56] LABS: ERYTHROCYTE SEDIMENTATION RATE 35 mm/hr (0-20)
== END ==
LOC: OD 13:08
PROVIDERS: ATTEND Internal Medicine Nephrology
DX: N17.9 Acute kidney failure, unspecified (principal); E87.5 Hyperkalemia
CPT/HCPCS: 36415; 80053; 81001; 82306; 82570; 83970; 84100; 84156; 85025; 85652

== ENCOUNTER → 2020-09-13 | Outpatient (CLI) | payer MEDICAID ==
[2020-09-13 13:14] LABS: BLOOD UREA NITROGEN 51 mg/dL (7-20); CALCIUM 8.1 mg/dL (8.4-10.2); GLUCOSE 92 mg/dL (75-110); POTASSIUM 3.9 mmol/L (3.6-5.0)
[2020-09-13 13:19] LABS: CARBON DIOXIDE 25 mmol/L (22-30); CHLORIDE 108 mmol/L (98-107)
[2020-09-13 13:21] LABS: ANION GAP 4 (5-19)
== END ==
LOC: OD 12:03
PROVIDERS: ATTEND Internal Medicine Nephrology
DX: N17.9 Acute kidney failure, unspecified (principal); N18.2 Chronic kidney disease, stage 2 (mild)
CPT/HCPCS: 36415; 80048